=== PATIENT | male | born 1950 | race Caucasian/White ===

== ENCOUNTER 2024-07-27 15:12 | Inpatient (IN) | payer MEDICARE, SELFPAY ==
--- NOTE | ~2024-07-27 | XR_ITS ---
EXAMINATION: XR TOES 2 OR MORE VIEWS RIGHT HISTORY: 2nd toe wound/infection COMPARISON: There are no prior studies available for comparison. FINDINGS: Three views of the right 2nd toe are submitted. There is demineralization of the middle and distal phalanges. There may be a fracture of the proximal phalanx although evaluation is limited by foreshortening. The joint spaces are preserved. There is diffuse soft tissue swelling. XR/XR toe RT min 2V IMPRESSION: Diffuse soft tissue swelling. Focal demineralization of the middle and distal phalanges of the right 2nd toe. Findings are suspicious for osteomyelitis. Possible fracture of the proximal phalanx, although evaluation is limited by foreshortening. Electronically signed by: Manoj Myles MD 07/27/2024 03:58 PM EDT
--- NOTE | ~2024-07-27 | US_ITS ---
CLINICAL HISTORY: foot cellulitis wound Arterial duplex ultrasound right lower extremity Comparison: None Findings: Doubling of flow velocity within the anterior and posterior tibial arteries. Otherwise continuous, pulsatile flow with normal waveforms from common femoral arteries through the posterior tibial and dorsalis pedis arteries. No focal stenosis, aneurysm or occlusion identified. Velocities are within normal range. IMPRESSION: 1. No significant outflow stenosis. 2. 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 This document has been electronically signed by: Sylvia Cruz MD on 07/29/2024 14:31:16
[2024-07-27 15:19] VITALS: BP 160/94; PULSE 118; O2SAT 97
--- NOTE | 2024-07-27 15:32 | ED_ITS ---
HPI - Extremity Problem General Chief complaint: Wound/Laceration Stated complaint: infected injury on toe x2days Time Seen by Provider: 07/27/24 15:16 Source: patient and EMS Mode of arrival: EMS Limitations: no limitations History of Present Illness ED Provider: Catherine Pickering NP HPI Narrative: patient is a 74-year-old male who presents emergency department for evaluation. He reports that 3 days ago he noticed his right 2nd toe to be slightly reddened in perhaps swollen. He had not thought much of this. Denied any precipitating injury. Admits that he did not visualize the toe over the past 3 days as he had not removed his socks. He has not today he would take a shower and upon removing his socks he found there to be a significant wound with bleeding. He denies any pain to this area. Denies history of diabetes or known neuropathy. He consulted with his brother who is a physician in [place] and advised him that he should seek care in the emergency department. Denies any fevers or chills. Has been ambulatory with a steady gait. Related Data Home Medications ?Medication ?Instructions ?Recorded ?Confirmed darunavir 600 mg tablet 600 mg PO BID 07/27/24 07/27/24 etravirine 200 mg tablet 200 mg PO BID 07/27/24 07/27/24 hydrochlorothiazide 12.5 mg tablet 12.5 mg PO DAILY 07/27/24 07/27/24 lisinopril 10 mg tablet 10 mg PO DAILY 07/27/24 07/27/24 raltegravir 400 mg tablet 400 mg PO BID 07/27/24 07/27/24 ([facility]) Allergies Allergy/AdvReac Type Severity Reaction Status Date / Time No Known Allergies Allergy Verified 07/27/24 15:35 Review of Systems 2 Review of Systems: Yes all other systems are reviewed and are negative PMFSH Past Medical History Attestation statement: The following information was validated with the patient. Source: old records reviewed Social History Social History Smoked in Last 30 Days: No Use of substances other than those prescribed or required for medical reasons: No Advance Directives: No Advance Directives Information Provided: Yes Do you have a plan to hurt others: No Plan Physical Exam 2 Vital Signs: Vital Signs: Last Vital Signs Temp 98.9 F 07/27/24 16:51 Pulse 98 07/27/24 16:51 Resp 14 07/27/24 16:51 BP 187/115 H 07/27/24 16:51 Pulse Ox 96 07/27/24 16:51 O2 Del Method Room Air 07/27/24 16:51 BMI result Body Mass Index 27.3 Appearance: Alert.?Oriented to person, place and time. No acute distress.?Normal affect. CVS: Heart sounds normal. Normal heart rate and rhythm.? Pulses normal.?? Respiratory: No respiratory distress.? Lung sounds clear to auscultation bilaterally?? Skin: Skin warm and dry.? Normal skin color.? Extremities: No lower extremity edema.? No calf ttp? 2+ DP/PT pulse. Right 2nd digit / infection as pictured below Neuro: Moves all extremities spontaneously. Sensation intact bilaterally. Ambulates with normal steady gait. Course Reevaluation(s) Reevaluation #1: CBC is without leukocytosis, has a mild normocytic anemia that does not meet transfusion criteria, no thrombocytopenia. Lactic acidosis of 2.6. XR revealing findings consistent with osteomyelitis. Additional coverage with vancomycin has been added. Anticipating admission to hospitalist service. I do note at this time that he has not anion gap hyperglycemia with no reported history of diabetes, suspect undiagnosed controlled diabetes at this time. Time: 16:24 Medications Administered Discontinued Medications Generic Name Dose Route Start Last Admin Trade Name Freq PRN Reason Stop Dose Admin Cefepime HCl 2 gm in 50 mls @ 100 mls/hr 07/27/24 15:38 07/27/24 16:05 Maxipime IV 07/27/24 16:07 100 mls/hr ONCE ONE Administration Sodium Chloride 2,585.49 mls @ 2,585.49 mls/hr 07/27/24 15:41 07/27/24 16:06 Ns 30 ml/kg infuse over 1 hr (2585.49 ml) 07/27/24 16:40 2,585.49 mls/hr IV Administration .Q1H STA Vancomycin HCl 2,000 mg in 500 mls @ 250 mls/hr 07/27/24 16:22 07/27/24 16:49 Vancomycin/Ns IV 07/27/24 18:21 250 mls/hr ONCE ONE Administration Medical Decision Making Medical Decision Making MDM Narrative: patient is a 74-year-old male with past medical history of hypertension, HIV on anti-retroviral therapy reports has not been seen for the past year but typically has detectable viral load with normal CD4 counts presenting for evaluation of right 2nd digit wound/ infection as per HPI. Has not been visualized over the past 2-3 days but today was noted to have significant wound presence as well as foul odor. To his account there was no known precipitating injury. Given the presentation I suspect an infection to the toe and he is tachycardic therefore meeting SIRS criteria, sepsis alert has been called, obtaining blood cultures and lactic acid, he has no hypotension at this point, we will cover with cefepime 2 g IV, obtaining XR to evaluate for osseous abnormality. Differential Diagnosis Differential Diagnoses: The differential diagnosis associated with the presentation includes ( Cellulitis, osteomyelitis, sepsis) Admission/Observation Consideration of admission/observation: Escalation of care including admission/observation considered Consult Healthcare Provider Management of the patient was discussed with: Hospitalist ( Dr. Servin - admitted to medicine service) Lab Data MDM Lab Attestation statement: I reviewed the patient's lab results. 07/27/24 15:58 07/27/24 15:58 Labs: Lab Results 07/27/24 Range/Units 15:58 WBC 8.8 (4.8-10.8) X10*3/uL RBC 4.67 (4.60-5.80) X10*6/uL Hgb 13.9 L (14.0-18.0) g/dl Hct 40.2 L (42.0-52.0) % MCV 86.1 (80.0-98.0) fL MCH 29.8 (27.0-33.0) pg MCHC 34.6 (31.0-36.0) g/dl RDW 12.2 (11.0-16.0) % Plt Count 315 (160-400) X10*3/uL MPV 9.8 (9.4-12.4) fL Immature Gran % (Auto) 0.5 H (0.0-0.4) % Neut % (Auto) 61.2 (45-73) % Lymph % (Auto) 27.2 (20-40) % [place] % (Auto) 9.0 (2-11) % Eos % (Auto) 1.6 (0-4) % Baso % (Auto) 0.5 (0-2) % Lymph # (Auto) 2.4 (1.2-4.9) X10*3/uL [place] # (Auto) 0.8 (0.1-1.2) X10*3/uL Eos # (Auto) 0.1 (0.0-0.4) X10*3/uL Baso # (Auto) 0.0 (0.0-0.2) X10*3/uL Abs Immat Gran (auto) 0.04 H (0.00-0.03) X10*3/uL Absolute Neuts (auto) 5.4 (2.0-8.3) x10*3/uL Absolute Nucleated RBC 0.000 (0.0-0.012) X10*3/uL Nucleated RBC % (auto) 0.0 (0.0-0.2) /100WBC ESR 54 H (0-15) MM/HR Hold Blue Top SEE NOTE Sodium 139 (135-145) mmol/L Potassium 4.0 (3.3-5.1) mmol/L Chloride 104 (96-108) mmol/L Carbon Dioxide 24 (22-29) mmol/L Anion Gap 15 (12-20) BUN 17 H (9-16) mg/dL Creatinine 1.15 (0.5-1.4) mg/dL Estim Creat Clear Calc 56.4 Estimated GFR > 60 Random Glucose 351 H* (60-115) mg/dL Estimat Average Glucose 217 mg/dL Hemoglobin A1c % 9.2 H (<6.0) % Lactic Acid 2.6 H* (0.5-2.0) mmol/L Calcium 9.1 (8.4-10.2) mg/dL Total Bilirubin 0.3 (0.0-1.0) mg/dL AST 21 (5-37) U/L ALT 15 (0-40) U/L Alkaline Phosphatase 75 (39-117) U/L C-Reactive Protein 1.41 H (< or = 0.50) mg/dL Total Protein 7.4 (6.5-8.0) g/dL Albumin 3.6 (3.5-5.0) g/dL Radiology Impression Discussion of test interpretation with radiology: I have reviewed the radiologist's reading. Radiologist Impression: XR/XR toe RT min 2V IMPRESSION: Diffuse soft tissue swelling. Focal demineralization of the middle and distal phalanges of the right 2nd toe. Findings are suspicious for osteomyelitis. Possible fracture of the proximal phalanx, although evaluation is limited by foreshortening. Independent Historian Clinical information obtained from an independent historian. History obtained from or confirmed by: EMS Chronic Conditions Patient?s care impacted by: Other ( see narrative above) Critical Care Time Critical Care Time Critical Care Time: Yes Total Critical Care Time: 35 Attestation: I personally attest to this critical care time spent taking care of the patient exclusive of all other billable procedures was approximately 35 minutes including initial evaluation of patient, ordering tests, x-ray interpretation, sepsis management, medical consultation, documentation, re-evaluation. Discharge Plan Discharge Clinical Impression: Acute osteomyelitis of toe of right foot Patient Disposition: Admitted As Inpatient
[2024-07-27 15:34] VITALS: BP 168/94; PULSE 107; RESP 18; TEMP 36.9; O2SAT 97; BMI 27.3
[2024-07-27 16:05] LABS: MANUAL DIFF FLAG NO
[2024-07-27] MEDS: cefEPime HCl/D5W 2 GM/50 ML PIGGYBACK IV (16:05)
[2024-07-27] MEDS: 0.9 % Sodium Chloride 2,585.49 ML 2585.49 ML IV (16:06)
[2024-07-27 16:10] LABS: Basophils Percent Auto 0.5 % (0-2); Eosinophils Absolute Auto 0.1 X10*3/uL (0.0-0.4); Eosinophils Percent Auto 1.6 % (0-4); Hematocrit 40.2 % (42.0-52.0); Hemoglobin 13.9 g/dl (14.0-18.0); Imm Gran Abs Auto 0.04 X10*3/uL (0.00-0.03); Imm Gran Pct Auto 0.5 % (0.0-0.4); Lymphocytes Absolute Auto 2.4 X10*3/uL (1.2-4.9); Lymphocytes Percent Auto 27.2 % (20-40); Mean Corpuscular HGB Conc 34.6 g/dl (31.0-36.0); Mean Corpuscular Hemoglobin 29.8 pg (27.0-33.0); Mean Corpuscular Volume 86.1 fL (80.0-98.0); Mean Platelet Volume 9.8 fL (9.4-12.4); Monocytes Absolute Auto 0.8 X10*3/uL (0.1-1.2); Neutrophils Absolute Auto 5.4 x10*3/uL (2.0-8.3); Neutrophils Percent Auto 61.2 % (45-73); Platelet Count 315 X10*3/uL (160-400); Red Blood Count 4.67 X10*6/uL (4.60-5.80); Red Cell Distribution Width 12.2 % (11.0-16.0); White Blood Count 8.8 X10*3/uL (4.8-10.8)
[2024-07-27 16:24] LABS: Lactic Acid 2.6 mmol/L (0.5-2.0)
[2024-07-27 16:25] LABS: Alanine Aminotransferase 15 U/L (0-40); Albumin Level 3.6 g/dL (3.5-5.0); Alkaline Phosphatase 75 U/L (39-117); Anion Gap 15 (12-20); Aspartate Amino Transferase 21 U/L (5-37); Bilirubin Total 0.3 mg/dL (0.0-1.0); Blood Urea Nitrogen 17 mg/dL (9-16); C Reactive Protein 1.41 mg/dL (< or = 0.50); Calcium 9.1 mg/dL (8.4-10.2); Carbon Dioxide 24 mmol/L (22-29); Chloride 104 mmol/L (96-108); Creatinine Clr Calc Pharmacy 56.4; Estimated Glomerular Filt Rate > 60; Glucose Random 351 mg/dL (60-115); Sodium 139 mmol/L (135-145); Total Protein 7.4 g/dL (6.5-8.0)
--- NOTE | 2024-07-27 16:47 | PHA.MEDREC ---
Addendum entered by Jose Ortiz [facility] 07/27/24 16:49: med rec reviewed Original Note: Pharmacy Consult ? Medication Reconciliation Pharmacy has completed the medication reconciliation. Spoke to patient and he confirmed all of his medications. Patient had all of his morning medication today.
[2024-07-27] MEDS: vancomycin/NS 2,000 MG/500 ML PLAST..BAG 250 MG IV (16:49)
[2024-07-27 16:51] VITALS: BP 187/115; PULSE 98; RESP 14; TEMP 37.2; O2SAT 96
[2024-07-27 16:55] LABS: Erythrocyte Sedimentation Rate 54 MM/HR (0-15)
[2024-07-27 17:51] LABS: Estimated Average Glucose 217 mg/dL; Hemoglobin A1C 271.8041 umol/L; Hemoglobin A1c % 9.2 % (<6.0); Total Hemoglobin (HGBA1C) 3541.9323 umol/L
--- NOTE | 2024-07-27 18:02 | PHA.PROG ---
Admission Date/Time: July 27, 2024 16:29 Indication: OTHER Weight in k.183 kg Adjusted body weight in Kg: [place] body weight in Kg: Obesity Dosing Indication % IBW: Serum Creatinine - Last 168 Hours 07/27/24 15:58 Creatinine 1.15 Estimated CrCl and GFR - Last 168 Hours 07/27/24 15:58 Estim Creat Clear Calc 56.4 Estimated GFR > 60 Vancomycin Loading Dose: 2000 MG Current Vancomycin Dosing Regimen: 1500 MG Q24H Vancomycin Monitoring using AUC goal of 400 - 600 range with trough as surrogate marker: AZC=834 TROUGH=15.5 Date and Time for next Vancomycin Level to be drawn: 07/29/24@1500 Pharmacist Comments on Vancomycin Plan: Vancomycin dosing will take advantage of [employer] as a clinical decision support tool that uses Bayesian modeling to calculate individual patient's pharmacokinetic parameters and forecast the patient's drug concentration time course with the target goal AUC 24 range of 400 - 600 mg/L/hr.
[2024-07-27 18:03] LABS: Reflex Lactate? Lactic Acid Added
[2024-07-27 18:53] VITALS: BP 187/101
[2024-07-27 18:53] LABS: ~Lactic Acid-LAB USE ONLY 2.2 mmol/L (0.5-2.0)
[2024-07-27] MEDS: Albumin Human 25 % 50 ML 100 ML IV (18:53)
[2024-07-27] MEDS: amLODIPine Besylate 5 MG TABLET PO (18:53)
[2024-07-27 19:31] VITALS: BP 179/104; PULSE 79; RESP 19; TEMP 36.9; O2SAT 95
[2024-07-27] MEDS: Lactated Ringers 1,000 ML 100 ML IVCONT (20:03)
[2024-07-27 20:32] LABS: Reflex Lactate? 2 Y
--- NOTE | 2024-07-27 20:32 | PM.IMHP ---
History of Present Illness Date of Service: 07/27/24 Attending physician on admission: Tanvi Servin Chief Complaint: Right toe infection Pt is a 74-year-old male with a PMH significant for HIV and HTN?who presents to the ED for evaluation of worsening right toe wound. Pt is overall a rather poor and vague historian. Will place a few days ago noticed that the nail on the 2nd digit of his right foot fell off. Pt states he sleeps in his socks and does not often look at his foot. Today pt went to take a shower and noticed the wound in his right foot had worsened significantly, was now swollen, malodorous, and bleeding. Pt denies any pain or feeling in his lower extremities. Denies hx of diabetes. Pt reports he is compliant with his HIV medications. However, pt states he has not seen a PCP in at least 3 or more years. Denies fever, chills. No nausea, vomiting, abdominal pain. Denies chest pain/pressure, palpitations. No SOB or difficulty breathing. In the ED pt was tachycardic up to 107 and hypertensive as high as 187/115. Labs were significant for ESR 54, random glucose 351, A1c 9.1, initial lactic acid 2.6 with repeat 2.2, and CRP 1.41. No leukocytosis. Stable H&H. No significant electrolyte abnormalities. Creatinine WNL at 1.15. X-ray of right toe showed diffuse soft tissue swelling with focal demineralization of right 2nd toe, suspicious for osteomyelitis. Pt was treated in the ED with IVF, vancomycin, and cefepime. Pt is admitted to the hospital for treatment and further evaluation of right 2nd toe osteomyelitis in the setting of new onset diabetes. Review of Systems Review of Systems: Negative except for that which is stated in the [facility] Medical History (Updated 07/27/24 @ 20:43 by HOMAR Winters) HIV (human immunodeficiency virus infection) HTN (hypertension) Social History Smoked in Last 30 Days: No Use of substances other than those prescribed or required for medical reasons: No Advance Directives: No Advance Directives Information Provided: Yes Do you have a plan to hurt others: No Plan Meds Allergies Allergy/AdvReac Type Severity Reaction Status Date / Time No Known Allergies Allergy Verified 07/27/24 15:35 Active Medications: Current Medications Amlodipine Besylate (Amlodipine Besylate 5 Mg Tablet) 5 mg PO DAILY [facility]; Protocol Last Admin: 07/27/24 18:53 Dose: 5 mg Darunavir (Darunavir Ethanolate 600 Mg Tablet) 600 mg PO BID [facility] Dextrose (Dextrose 50 % 25 Gm/50 Ml Syringe) 25 gm IVPUSH Q15M PRN; Protocol PRN Reason: per Hypoglycemia Standing Ord. Glucose (Glucose Gel 15 Gm Gel..Gram.) 15 gm PO Q15M PRN; Protocol PRN Reason: per Hypoglycemia Standing Ord. Cefepime HCl (Maxipime) 2 gm in 50 mls @ 100 mls/hr IV Q12H [facility] Lactated Ringer's (Lr) 1,000 mls @ 100 mls/hr IVCONT .Q10H [facility] Last Admin: 07/27/24 20:03 Dose: 100 mls/hr Vancomycin HCl 1,500 mg/ (Sodium Chloride) 500 mls @ 333.333 mls/hr IV Q24H [facility] Insulin Glargine (Insulin Glargine,Hum.Rec.Anlog 100 Unit/Ml 10 Ml Vial) 10 unit SUBCUT BEDTIME [facility] Insulin Human Lispro (Insulin Lispro 100 Unit/Ml 3 Ml Vial) 0 unit SUBCUT QIDACHS [facility]; Protocol Non-Formulary Medication (Etravirine) 200 mg PO BID [facility] Pharmacy Consult (Consult Rx Vancomycin Dosing) 1 each MISCELLANE DAILY PRN PRN Reason: Consult order Raltegravir (Raltegravir Potassium 400 Mg Tablet) 400 mg PO BID [facility] Home Medications ?Medication ?Instructions ?Recorded ?Confirmed ?Last Taken ?Type darunavir 600 mg tablet 600 mg PO BID 07/27/24 07/27/24 07/27/24 History etravirine 200 mg tablet 200 mg PO BID 07/27/24 07/27/24 07/27/24 History hydrochlorothiazide 12.5 mg tablet 12.5 mg PO DAILY 07/27/24 07/27/24 07/27/24 History lisinopril 10 mg tablet 10 mg PO DAILY 07/27/24 07/27/24 07/27/24 History raltegravir 400 mg tablet 400 mg PO BID 07/27/24 07/27/24 07/27/24 History ([place]) Physical Exam Vital Signs and Narrative: Vital Signs: Last Vital Signs Temp 98.4 F 07/27/24 19:31 Pulse 79 07/27/24 19:31 Resp 19 07/27/24 19:31 BP 179/104 H 07/27/24 19:31 Pulse Ox 95 07/27/24 19:31 O2 Del Method Room Air 07/27/24 19:31 BMI result Body Mass Index 27.3 General: AOx3, no acute distress. Pt unkempt, malodorous. Resp: CTA bilaterally CVS: S1, S2, RRR GI: +BS, NT, no distention Skin: Warm, dry Neuro: Cranial nerves II-XII grossly intact bilaterally. Motor grossly intact bilaterally Extremities: Erythema, swelling of right lower extremity and foot. Right 2nd digit of foot as pictured below. Malodorous Psych: Appropriate affect Results Labs 07/27/24 15:58 07/27/24 15:58 Labs: Laboratory Results - last 24 hr 07/27/24 07/27/24 15:58 18:29 MCV 86.1 MCH 29.8 MCHC 34.6 RDW 12.2 Plt Count 315 MPV 9.8 Immature Gran % (Auto) 0.5 H Neut % (Auto) 61.2 Lymph % (Auto) 27.2 [place] % (Auto) 9.0 Eos % (Auto) 1.6 Baso % (Auto) 0.5 Lymph # (Auto) 2.4 [place] # (Auto) 0.8 Eos # (Auto) 0.1 Baso # (Auto) 0.0 Abs Immat Gran (auto) 0.04 H Absolute Neuts (auto) 5.4 Absolute Nucleated RBC 0.000 Nucleated RBC % (auto) 0.0 ESR 54 H Hold Blue Top SEE NOTE Anion Gap 15 Estim Creat Clear Calc 56.4 Estimated GFR > 60 Random Glucose 351 H* Estimat Average Glucose 217 Hemoglobin A1c % 9.2 H Lactic Acid 2.6 H* Lactic Acid F/U @ 2Hr 2.2 H* Calcium 9.1 Total Bilirubin 0.3 AST 21 ALT 15 Alkaline Phosphatase 75 C-Reactive Protein 1.41 H Total Protein 7.4 Albumin 3.6 Imaging Radiologist's Impressions: Impressions Toe X-Ray 07/27/24 15:35 IMPRESSION: Diffuse soft tissue swelling. Focal demineralization of the middle and distal phalanges of the right 2nd toe. Findings are suspicious for osteomyelitis. Possible fracture of the proximal phalanx, although evaluation is limited by foreshortening. Electronically signed by: Manoj Myles MD 07/27/2024 03:58 PM EDT RP Assessment and Plan (1) Acute osteomyelitis of toe of right foot: Status: Acute Plan Pt is a 74-year-old male with a PMH significant for HIV and HTN?who presents to the ED for evaluation of worsening right toe wound. Pt is overall a rather poor and vague historian. Pt is admitted to the hospital for treatment and further evaluation of right 2nd toe osteomyelitis in the setting of new onset diabetes. Acute osteomyelitis of 2nd digit on right foot In the setting of undiagnosed/new onset diabetes Pt with worsening right foot for the past 3-4 days X-ray of right foot suggestive of osteomyelitis No sepsis: Tachycardia, but no tachypnea, fever, or leukocytosis Pt given IVF and started on broad spectrum abx in the ED Will treat with vancomycin and cefepime, started 07/27/2024 General surgery consult New onset type 2 diabetes Initial random glucose 351, A1c 9.[address] on sliding scale insulin Start on Lantus 10 at night Diabetic diet, diabetic counseling Acute lactic acidosis Initial lactic acid 2.6 with repeat 2.2 Not secondary to sepsis Pt given IVF in the ED and started on broad-spectrum antibiotics Treat as above HTN Hold lisinopril and hydrochlorothiazide for now Will start on amlodipine 5 mg daily Follow up BP HIV Continue home meds Check CD4 levels as pt has not followed with PCP in some years Full Code, verified with pt Attending:?Dr. Servin DVT Prophylaxis: Lovenox Pt will require a hospitalization of at least two nights for treatment of?acute right 2nd toe osteomyelitis in the setting of new onset diabetes that will require IV antibiotics and specialist consultation with General surgery. Quality Stroke Does the patient have a stroke diagnosis?: No VTE Prior VTE?: No VTE Risk Level:: Medical - moderate - high VTE Device Contraindication: Treatment Not Indicated VTE Drug Contraindication: N/A - Med Ordered
[2024-07-27 20:39] LABS: Cancel Lactic Acid Canceled
[2024-07-27 22:21] VITALS: BP 181/107; PULSE 75; RESP 21; TEMP 37.1; O2SAT 95
[2024-07-27 22:42] LABS: Glucose, Whole Blood 125 mg/dL (60-115)
[2024-07-27] MEDS: DARUNAVIR ETHANOLATE 600 MG PO (22:56)
[2024-07-27] MEDS: Raltegravir Potassium 400 MG TABLET PO (22:56)
[2024-07-27] MEDS: Insulin Glargine,Hum.rec.anlog 100 UNIT/ML 10 ML VIAL 10 UNIT SUBCUT (23:03)
[2024-07-27] MEDS: Enoxaparin Sodium 40 MG/0.4 ML SYRINGE SUBCUT (23:09)
--- NOTE | 2024-07-27 23:10 | PC.NURSE ---
Took over are from Janak Gomez at 19:00, pt medicated per mar. awaiting transport to room.
[2024-07-28] VITALS (9 sets, daily range): BP systolic 151–180; BP diastolic 78–92; PULSE 73–89; RESP 16–18; TEMP 36.4–37.2; O2SAT 93–98
[2024-07-28] MEDS: cefEPime HCl/D5W 2 GM/50 ML PIGGYBACK IV ×2 (05:11→17:43)
[2024-07-28] MEDS: Lactated Ringers 1,000 ML 100 ML IVCONT ×2 (05:11→12:51)
[2024-07-28 07:30] LABS: Anion Gap 13 (12-20); Blood Urea Nitrogen 10 mg/dL (9-16); Calcium 8.8 mg/dL (8.4-10.2); Carbon Dioxide 25 mmol/L (22-29); Chloride 104 mmol/L (96-108); Creatinine Clr Calc Pharmacy 80.1; Estimated Glomerular Filt Rate > 60; Glucose Random 150 mg/dL (60-115); Potassium 3.6 mmol/L (3.3-5.1); Sodium 138 mmol/L (135-145)
[2024-07-28 07:34] LABS: Glucose, Whole Blood 173 mg/dL (60-115)
[2024-07-28] MEDS: Insulin Lispro 100 UNIT/ML 3 ML VIAL SUBCUT ×3 (08:53→20:50)
[2024-07-28] MEDS: DARUNAVIR ETHANOLATE 600 MG PO ×2 (08:53→20:50)
[2024-07-28] MEDS: amLODIPine Besylate 5 MG TABLET PO (08:53)
[2024-07-28] MEDS: Raltegravir Potassium 400 MG TABLET PO ×2 (08:54→20:49)
[2024-07-28] MEDS: 0.9 % Sodium Chloride Flush 3 ML SYRINGE IVFLUSH ×2 (08:54→17:43)
[2024-07-28] MEDS: glipiZIDE 5 MG TABLET 2.5 MG PO ×2 (09:26→17:42)
--- NOTE | 2024-07-28 10:15 | MHC.CM.PN ---
IMM 07/28/24, Pt lives alone, he does not have home health services, he said that his PCP is Kendra Cevallos, but he has not seen her in 3 years, so may not still be active, brochure given if he needs new PCP. He does not use DME. HCP form completed here and added to chart, naming his brother. Pt will need assistance with transport home at [place], DCP: home, self care, CM to follow for DC needs.
--- NOTE | 2024-07-28 10:34 | P.CONGS_ITS ---
History of Present Illness Consult details Consult date: 07/28/24 Narrative: 74-year-old male referred for right 2nd toe wound with cellulitis. He says he has noticed this wound for about a week but this seemed to have worsened yesterday with bleeding, drainage and swelling. He is not a very good historian. He says that he was unaware that he had diabetes He denies any fever or chills. His imaging studies suggest osteomyelitis of the 2nd toe. He says he does not really have good sensation on this toe. He denies pain on the area. Review of Systems 2 Constitutional: Constitutional: Denies chills and Denies fever(s) Cardiovascular: Cardiovascular: Denies chest pain, Denies dyspnea and Denies dyspnea on exertion Respiratory: Respiratory: Denies cough, Denies dyspnea and Denies dyspnea on exertion Gastrointestinal: Gastrointestinal: Denies hematochezia and Denies change in bowel habits Genitourinary: Genitourinary: Denies hematuria and Denies difficulty urinating Musculoskeletal: Musculoskeletal: Denies back pain and Denies limited range of motion Neurologic: Denies focal weakness and Denies convulsions Psychiatric: Psychiatric: Denies depression and Denies mood swings [facility] Past Medical History Medical History (Updated 07/27/24 @ 20:43 by HOMAR Winters) HIV (human immunodeficiency virus infection) HTN (hypertension) Social History Social History Household Members: None Housing: Apartment Do you presently have visiting nurse or other home services: No Patient Tobacco Use Status: Never used Tobacco Smoked in Last 30 Days: No Use of substances other than those prescribed or required for medical reasons: No Currently Displaying Signs/Symptoms of Drug Intoxication Withdrawal: No Have you been hit, kicked, punched, or otherwise hurt by someone within the past year? If so, by whom?: No Are you made to feel afraid or neglected: No Advance Directives: No Advance Directives Information Provided: Yes Do you have a plan to hurt others: No Plan Recently lost weight without trying: No How much weight loss: Not applicable Eating poorly because of decreased appetite: No Nutrition screen score: 0 Nutrition Risks: No Nutritional Risk service: No Meds Allergies Allergy/AdvReac Type Severity Reaction Status Date / Time No Known Allergies Allergy Verified 07/27/24 15:35 Active Medications: Current Medications Acetaminophen (Acetaminophen 325 Mg Tablet) 650 mg PO Q6H PRN PRN Reason: Pain, Mild 1-3,fever,headache Amlodipine Besylate (Amlodipine Besylate 5 Mg Tablet) 5 mg PO DAILY [facility]; Protocol Last Admin: 07/28/24 08:53 Dose: 5 mg Calcium Carbonate (Calcium Carbonate 750 Mg Tab.Chew) 750 mg PO Q4H PRN PRN Reason: Heartburn Darunavir (Darunavir Ethanolate 600 Mg Tablet) 600 mg PO BID [facility] Last Admin: 07/28/24 08:53 Dose: 600 mg Dextrose (Dextrose 50 % 25 Gm/50 Ml Syringe) 25 gm IVPUSH Q15M PRN; Protocol PRN Reason: per Hypoglycemia Standing Ord. Enoxaparin Sodium (Enoxaparin Sodium 40 Mg/0.4 Ml Syringe) 40 mg SUBCUT Q24H [facility] Last Admin: 07/27/24 23:09 Dose: 40 mg Glipizide (Glipizide 5 Mg Tablet) 2.5 mg PO BIDWM [facility] Last Admin: 07/28/24 09:26 Dose: 2.5 mg Glucose (Glucose Gel 15 Gm Gel..Gram.) 15 gm PO Q15M PRN; Protocol PRN Reason: per Hypoglycemia Standing Ord. Cefepime HCl (Maxipime) 2 gm in 50 mls @ 100 mls/hr IV Q12H [facility] Last Infusion: 07/28/24 06:25 Dose: Infused Lactated Ringer's (Lr) 1,000 mls @ 100 mls/hr IVCONT .Q10H [facility] Last Admin: 07/28/24 05:11 Dose: 100 mls/hr Vancomycin HCl 1,500 mg/ (Sodium Chloride) 500 mls @ 333.333 mls/hr IV Q24H [facility] Insulin Glargine (Insulin Glargine,Hum.Rec.Anlog 100 Unit/Ml 10 Ml Vial) 10 unit SUBCUT BEDTIME [facility] Last Admin: 07/27/24 23:03 Dose: 10 unit Insulin Human Lispro (Insulin Lispro 100 Unit/Ml 3 Ml Vial) 0 unit SUBCUT QIDACHS [facility]; Protocol Last Admin: 07/28/24 08:53 Dose: 2 unit Magnesium Hydroxide (Milk Of Magnesia 30 Ml Oral.Susp) 30 ml PO DAILY PRN PRN Reason: Constipation Melatonin (Melatonin 3 Mg Tablet) 6 mg PO BEDTIME PRN PRN Reason: Insomnia Non-Formulary Medication (Etravirine) 200 mg PO BID [facility] Pharmacy Consult (Consult Rx Vancomycin Dosing) 1 each MISCELLANE DAILY PRN PRN Reason: Consult order Raltegravir (Raltegravir Potassium 400 Mg Tablet) 400 mg PO BID [facility] [place] Last Admin: 07/28/24 08:54 Dose: 400 mg Sodium Chloride (0.9 % Sodium Chloride Flush 3 Ml Syringe) 3 ml IVFLUSH QSHIFT [facility] Last Admin: 07/28/24 08:54 Dose: 3 ml Home Medications ?Medication ?Instructions ?Recorded ?Confirmed ?Last Taken ?Type darunavir 600 mg tablet 600 mg PO BID 07/27/24 07/27/24 07/27/24 History etravirine 200 mg tablet 200 mg PO BID 07/27/24 07/27/24 07/27/24 History hydrochlorothiazide 12.5 mg tablet 12.5 mg PO DAILY 07/27/24 07/27/24 07/27/24 History lisinopril 10 mg tablet 10 mg PO DAILY 07/27/24 07/27/24 07/27/24 History raltegravir 400 mg tablet 400 mg PO BID 07/27/24 07/27/24 07/27/24 History ([place]) Physical Exam 2 Vital Signs: Vital Signs: Last Vital Signs Temp 98.6 F 07/28/24 08:00 Pulse 77 07/28/24 08:00 Resp 17 07/28/24 08:00 BP 151/80 H 07/28/24 08:53 Pulse Ox 95 07/28/24 08:00 O2 Del Method Room Air 07/28/24 08:00 BMI result Body Mass Index 27.3 Const: General: comfortable and no acute distress O rientation/consciousness: patient oriented x3 Neck: Neck: Yes no lymphadenopathy Resp: Auscultation: clear to auscultation bilaterally Cardio: Rhythm: regular rhythm GI: Palpation (GI): Soft to palpation, nontender and no guarding Neuro: General: patient oriented x3 Extrem: Other: Second toe with ulcer on the dorsal aspect about 2 x 3 cm, with thick fibrinous exudates and superficial skin necrosis, cellulitic changes More superficial ulceration on the 1st toe Results Labs 07/27/24 15:58 07/28/24 06:57 Labs: Abnormal lab results 07/27/24 07/27/24 07/27/24 Range/Units 15:58 18:29 22:36 Hgb 13.9 L (14.0-18.0) g/dl Hct 40.2 L (42.0-52.0) % Immature Gran % (Auto) 0.5 H (0.0-0.4) % Abs Immat Gran (auto) 0.04 H (0.00-0.03) X10*3/uL ESR 54 H (0-15) MM/HR BUN 17 H (9-16) mg/dL POC Glucose 125 H (60-115) mg/dL Random Glucose 351 H* (60-115) mg/dL Hemoglobin A1c % 9.2 H (<6.0) % Lactic Acid 2.6 H* (0.5-2.0) mmol/L Lactic Acid F/U @ 2Hr 2.2 H* (0.5-2.0) mmol/L C-Reactive Protein 1.41 H (< or = 0.50) mg/dL 07/28/24 07/28/24 Range/Units 06:57 07:08 Hgb (14.0-18.0) g/dl Hct (42.0-52.0) % Immature Gran % (Auto) (0.0-0.4) % Abs Immat Gran (auto) (0.00-0.03) X10*3/uL ESR (0-15) MM/HR BUN (9-16) mg/dL POC Glucose 173 H (60-115) mg/dL Random Glucose 150 H (60-115) mg/dL Hemoglobin A1c % (<6.0) % Lactic Acid (0.5-2.0) mmol/L Lactic Acid F/U @ 2Hr (0.5-2.0) mmol/L C-Reactive Protein (< or = 0.50) mg/dL Short CBC 07/27/24 Range/Units 15:58 WBC 8.8 (4.8-10.8) X10*3/uL Hgb 13.9 L (14.0-18.0) g/dl Hct 40.2 L (42.0-52.0) % Plt Count 315 (160-400) X10*3/uL BMP 07/27/24 07/28/24 15:58 06:57 Sodium 139 138 Potassium 4.0 3.6 Chloride 104 104 Carbon Dioxide 24 25 BUN 17 H 10 Creatinine 1.15 0.81 Calcium 9.1 8.8 Liver Function 07/27/24 Range/Units 15:58 Total Bilirubin 0.3 (0.0-1.0) mg/dL AST 21 (5-37) U/L ALT 15 (0-40) U/L Alkaline Phosphatase 75 (39-117) U/L Albumin 3.6 (3.5-5.0) g/dL All other labs normal. Assessment and Plan (1) Acute osteomyelitis of toe of right foot: Status: Acute He has this ulcer on the 2nd toe on the dorsal aspect as described above. He does have some drainage and swelling. His x-ray suggest osteomyelitis of the distal and middle phalanges. I have bluntly debrided the area of the 1st and 2nd toes because of the presence of eschar and fibrinous debris. I have applied dry dressings and wrapped the foot with Chen roll I explained to him option of IV antibiotic treatment versus amputation. He says that he would like to try antibiotic treatment at this time He has also been treated for new onset diabetes. I agree with IV antibiotics for now with good wound care. I will follow along while he is in the hospital Procedures Date of Service Date of Service: 07/28/24
[2024-07-28 11:15] LABS: Glucose, Whole Blood 256 mg/dL (60-115)
[2024-07-28 16:06] LABS: Glucose, Whole Blood 112 mg/dL (60-115)
--- NOTE | 2024-07-28 16:34 | P.PNIM_ITS ---
Subjective Subjective Date of Service: 07/28/24 Interval History: foot cellulitis , uncontrolled htn Review of Systems foot erythema /wound seems similar Review of Systems: Yes all other systems are reviewed and are negative Physical Exam 2 Vital Signs: Vital Signs: Last Vital Signs Temp 98.7 F 07/28/24 16:00 Pulse 85 07/28/24 16:00 Resp 17 07/28/24 16:00 BP 175/85 H 07/28/24 16:00 Pulse Ox 93 07/28/24 16:00 O2 Del Method Room Air 07/28/24 16:00 BMI result Body Mass Index 27.3 General: AOx3, no acute distress. Pt unkempt, malodorous. Resp: CTA bilaterally CVS: S1, S2, RRR GI: +BS, NT, no distention Skin: Warm, dry Neuro: non focal Extremities: Erythema, swelling of right lower extremity and foot. Right 2nd digit of foot as pictured below. Malodorous Objective Data Active Medications Acetaminophen (Acetaminophen 325 Mg Tablet) 650 mg PO Q6H PRN PRN Reason: Pain, Mild 1-3,fever,headache Amlodipine Besylate (Amlodipine Besylate 5 Mg Tablet) 5 mg PO DAILY [facility]; Protocol Last Admin: 07/28/24 08:53 Dose: 5 mg Documented By: SUSANNAH Calcium Carbonate (Calcium Carbonate 750 Mg Tab.Chew) 750 mg PO Q4H PRN PRN Reason: Heartburn Darunavir (Darunavir Ethanolate 600 Mg Tablet) 600 mg PO BID [facility] Last Admin: 07/28/24 08:53 Dose: 600 mg Documented By: SUSANNAH Dextrose (Dextrose 50 % 25 Gm/50 Ml Syringe) 25 gm IVPUSH Q15M PRN; Protocol PRN Reason: per Hypoglycemia Standing Ord. Enoxaparin Sodium (Enoxaparin Sodium 40 Mg/0.4 Ml Syringe) 40 mg SUBCUT Q24H [facility] Last Admin: 07/27/24 23:09 Dose: 40 mg Documented By: JENNIFER Glipizide (Glipizide 5 Mg Tablet) 2.5 mg PO BIDWM [facility] Last Admin: 07/28/24 09:26 Dose: 2.5 mg Documented By: SUSANNAH Glucose (Glucose Gel 15 Gm Gel..Gram.) 15 gm PO Q15M PRN; Protocol PRN Reason: per Hypoglycemia Standing Ord. Cefepime HCl (Maxipime) 2 gm in 50 mls @ 100 mls/hr IV Q12H [facility] Last Infusion: 07/28/24 06:25 Dose: Infused Documented By: BIENVENIDO Lactated Ringer's (Lr) 1,000 mls @ 100 mls/hr IVCONT .Q10H [facility] Last Admin: 07/28/24 12:51 Dose: 100 mls/hr Documented By: SUSANNAH Vancomycin HCl 1,500 mg/ (Sodium Chloride) 500 mls @ 333.333 mls/hr IV Q24H [facility] Insulin Glargine (Insulin Glargine,Hum.Rec.Anlog 100 Unit/Ml 10 Ml Vial) 10 unit SUBCUT BEDTIME [facility] Last Admin: 07/27/24 23:03 Dose: 10 unit Documented By: JENNIFER Insulin Human Lispro (Insulin Lispro 100 Unit/Ml 3 Ml Vial) 0 unit SUBCUT QIDACHS [facility]; Protocol Last Admin: 07/28/24 12:52 Dose: 6 unit Documented By: SUSANNAH Magnesium Hydroxide (Milk Of Magnesia 30 Ml Oral.Susp) 30 ml PO DAILY PRN PRN Reason: Constipation Melatonin (Melatonin 3 Mg Tablet) 6 mg PO BEDTIME PRN PRN Reason: Insomnia Non-Formulary Medication (Etravirine) 200 mg PO BID [facility] Pharmacy Consult (Consult Rx Vancomycin Dosing) 1 each MISCELLANE DAILY PRN PRN Reason: Consult order Raltegravir (Raltegravir Potassium 400 Mg Tablet) 400 mg PO BID [facility] Last Admin: 07/28/24 08:54 Dose: 400 mg Documented By: SUSANNAH Sodium Chloride (0.9 % Sodium Chloride Flush 3 Ml Syringe) 3 ml IVFLUSH QSHIFT [facility] Last Admin: 07/28/24 08:54 Dose: 3 ml Documented By: SUSANNAH Labs 07/27/24 15:58 07/28/24 06:57 Labs: Laboratory Results - last 24 hr 07/27/24 07/27/24 07/27/24 15:58 18:29 22:36 ESR 54 H Hold Purple Top Anion Gap Estim Creat Clear Calc Estimated GFR POC Glucose 125 H Random Glucose Estimat Average Glucose 217 Hemoglobin A1c % 9.2 H Lactic Acid F/U @ 2Hr 2.2 H* Calcium 07/28/24 07/28/24 07/28/24 06:57 07:08 11:06 ESR Hold Purple Top SEE NOTE Anion Gap 13 Estim Creat Clear Calc 80.1 Estimated GFR > 60 POC Glucose 173 H 256 H Random Glucose 150 H Estimat Average Glucose Hemoglobin A1c % Lactic Acid F/U @ 2Hr Calcium 8.8 07/28/24 15:37 ESR Hold Purple Top Anion Gap Estim Creat Clear Calc Estimated GFR POC Glucose 112 Random Glucose Estimat Average Glucose Hemoglobin A1c % Lactic Acid F/U @ 2Hr Calcium Assessment and Plan (1) Acute osteomyelitis of toe of right foot: Status: Acute Assessment and Plan: 74-year-old male with a PMH significant for HIV and HTN?who presents to the ED for evaluation of worsening right toe wound. Pt is overall a rather poor and vague historian. Pt is admitted to the hospital for treatment and further evaluation of right 2nd toe osteomyelitis in the setting of new onset diabetes. Acute osteomyelitis of 2nd digit on right foot In the setting of undiagnosed/new onset diabetes Pt with worsening right foot for the past 3-4 days X-ray of right foot suggestive of osteomyelitis No sepsis: Tachycardia, but no tachypnea, fever, or leukocytosis will check right Le Doppler continue vancomycin and cefepime, started 07/27/2024 General surgery consult New onset type 2 diabetes Initial random glucose 351, A1c 9.2 started on glipizide fs with coverage Diabetic diet, diabetic counseling Acute lactic acidosis Initial lactic acid 2.6 with repeat 2.2 Not secondary to sepsis Pt given IVF in the ED and started on broad-spectrum antibiotics Treat as above HTN uncontrolled Hold lisinopril Will start on amlodipine 5 mg daily ,added hydrochlorothiazide. Follow up BP HIV Continue home meds Check CD4 levels as pt has not followed with PCP in some years Full Code, verified with pt DVT Prophylaxis: Lovenox ongoing need: hospitalization of at least two nights for treatment of?acute right 2nd toe osteomyelitis in the setting of new onset diabetes that will require IV antibiotics and specialist consultation with General surgery. Quality Stroke Does the patient have a stroke diagnosis?: No VTE Prior VTE?: No VTE Risk Level:: Medical - moderate - high VTE Device Contraindication: Treatment Not Indicated VTE Drug Contraindication: N/A - Med Ordered
[2024-07-28] MEDS: hydroCHLOROthiazide 12.5 MG TABLET PO (17:42)
[2024-07-28] MEDS: vancomycin HCL 1,500 MG in 0.9 % Sodium Chloride 500 ML 333.33 MG IV (17:43)
[2024-07-28 20:36] LABS: Glucose, Whole Blood 152 mg/dL (60-115)
[2024-07-28] MEDS: Enoxaparin Sodium 40 MG/0.4 ML SYRINGE SUBCUT (20:50)
--- NOTE | 2024-07-28 22:30 | PC.NURSE ---
Addendum entered by Jaqueline Jeffries RN 07/29/24 06:20: LS clear, RR even & non-labored, with no apparent distress. BSx4, non-tender, large and round, Denies SOB/CP/N/V, no pain reported. Dsg to Left foot CDI, positive pulses to BLE, sensation intact. VSS, Call clements within reach. Original Note: This RN received report via telephone from ANNY Alexandra on C, pt in transport at this time.
--- NOTE | 2024-07-28 22:30 | PC.NURSE ---
Addendum entered by Jaqueline Jeffries RN 07/29/24 06:14: LS diminished but clear, RR even & non-labored, with no apparent distress. BSx4, non-tender, large and round, Denies SOB/CP/N/V, no pain reported. Dsg to Left foot CDI, positive pulses to BLE, sensation intact. VSS, Call clements within reach. Original Note: This RN received report at [id number], from ANNY Alexandar from [employer], pt being transported to floor at this time.
[2024-07-29] VITALS (8 sets, daily range): BP systolic 127–160; BP diastolic 67–88; PULSE 75–98; RESP 16–18; TEMP 36.3–37.2; O2SAT 93–96
[2024-07-29] MEDS: cefEPime HCl/D5W 2 GM/50 ML PIGGYBACK IV ×2 (03:32→15:28)
[2024-07-29] MEDS: Lactated Ringers 1,000 ML 100 ML IVCONT (05:45)
[2024-07-29 06:26] LABS: Estimated Glomerular Filt Rate > 60
[2024-07-29 07:16] LABS: Glucose, Whole Blood 140 mg/dL (60-115)
--- NOTE | 2024-07-29 07:39 | P.PNIM_ITS ---
Subjective Subjective Date of Service: 07/29/24 Interval History: possible osetomyelitis Review of Systems denies foot pain has mild erythema foot seems similar Review of Systems: Yes all other systems are reviewed and are negative Physical Exam 2 Vital Signs: Vital Signs: Last Vital Signs Temp 99.0 F 07/29/24 07:10 Pulse 75 07/29/24 07:10 Resp 18 07/29/24 07:10 BP 143/77 H 07/29/24 07:10 Pulse Ox 95 07/29/24 07:10 O2 Del Method Room Air 07/29/24 07:10 BMI result Body Mass Index 27.3 General: AOx3, no acute distress. Pt unkempt, malodorous. Resp: CTA bilaterally CVS: S1, S2, RRR GI: +BS, NT, no distention Skin: Warm, dry Neuro: non focal Extremities: Erythema, swelling of right lower extremity and foot. Right 2nd digit of foot as pictured below. Objective Data Active Medications Acetaminophen (Acetaminophen 325 Mg Tablet) 650 mg PO Q6H PRN PRN Reason: Pain, Mild 1-3,fever,headache Amlodipine Besylate (Amlodipine Besylate 5 Mg Tablet) 5 mg PO DAILY [facility]; Protocol Calcium Carbonate (Calcium Carbonate 750 Mg Tab.Chew) 750 mg PO Q4H PRN PRN Reason: Heartburn Darunavir (Darunavir Ethanolate 600 Mg Tablet) 600 mg PO BID [facility] Last Admin: 07/28/24 20:50 Dose: 600 mg Documented By: AYANNA Dextrose (Dextrose 50 % 25 Gm/50 Ml Syringe) 25 gm IVPUSH Q15M PRN; Protocol PRN Reason: per Hypoglycemia Standing Ord. Enoxaparin Sodium (Enoxaparin Sodium 40 Mg/0.4 Ml Syringe) 40 mg SUBCUT Q24H [facility] Last Admin: 07/28/24 20:50 Dose: 40 mg Documented By: AYANNA Glipizide (Glipizide 5 Mg Tablet) 2.5 mg PO BIDWM [facility] Last Admin: 07/28/24 17:42 Dose: 2.5 mg Documented By: SUSANNAH Glucose (Glucose Gel 15 Gm Gel..Gram.) 15 gm PO Q15M PRN; Protocol PRN Reason: per Hypoglycemia Standing Ord. Hydrochlorothiazide (Hydrochlorothiazide 12.5 Mg Tablet) 12.5 mg PO DAILY [facility]; Protocol Last Admin: 07/28/24 17:42 Dose: 12.5 mg Documented By: SUSANNAH Cefepime HCl (Maxipime) 2 gm in 50 mls @ 100 mls/hr IV Q12H [facility] Last Infusion: 07/29/24 04:02 Dose: Infused Documented By: KATHRINE Lactated Ringer's (Lr) 1,000 mls @ 100 mls/hr IVCONT .Q10H [facility] Last Admin: 07/29/24 05:45 Dose: 100 mls/hr Documented By: KATHRINE Vancomycin HCl 1,500 mg/ (Sodium Chloride) 500 mls @ 333.333 mls/hr IV Q24H [facility] Last Infusion: 07/29/24 00:27 Dose: Infused Documented By: KATHRINE Insulin Human Lispro (Insulin Lispro 100 Unit/Ml 3 Ml Vial) 0 unit SUBCUT QIDACHS [facility]; Protocol Last Admin: 07/29/24 07:23 Dose: Not Given Documented By: RAMYA Non-Admin Reason: No Insulin Coverage Magnesium Hydroxide (Milk Of Magnesia 30 Ml Oral.Susp) 30 ml PO DAILY PRN PRN Reason: Constipation Melatonin (Melatonin 3 Mg Tablet) 6 mg PO BEDTIME PRN PRN Reason: Insomnia Non-Formulary Medication (Etravirine) 200 mg PO BID [facility] Pharmacy Consult (Consult Rx Vancomycin Dosing) 1 each MISCELLANE DAILY PRN PRN Reason: Consult order Raltegravir (Raltegravir Potassium 400 Mg Tablet) 400 mg PO BID [facility] Last Admin: 07/28/24 20:49 Dose: 400 mg Documented By: AYANNA Sodium Chloride (0.9 % Sodium Chloride Flush 3 Ml Syringe) 3 ml IVFLUSH QSHIFT [facility] Last Admin: 07/28/24 23:00 Dose: Not Given Documented By: KATHRINE Non-Admin Reason: IV Running Labs 07/27/24 15:58 07/29/24 05:40 Labs: Laboratory Results - last 24 hr 07/28/24 07/28/24 07/28/24 11:06 15:37 20:32 Hold Purple Top Estim Creat Clear Calc Estimated GFR POC Glucose 256 H 112 152 H 07/29/24 07/29/24 05:40 07:09 Hold Purple Top SEE NOTE Estim Creat Clear Calc 69.0 Estimated GFR > 60 POC Glucose 140 H Microbiology Microbiology Results: Microbiology 07/27/24 15:58 Blood Culture - Preliminary Blood - Venous No growth after 24 hours. 07/27/24 15:58 Blood Culture - Preliminary Blood - Venous No growth after 24 hours. Assessment and Plan (1) Acute osteomyelitis of toe of right foot: Status: Acute Assessment and Plan: 74-year-old male with a PMH significant for HIV and HTN?who presents to the ED for evaluation of worsening right toe wound. Pt is overall a rather poor and vague historian. Pt is admitted to the hospital for treatment and further evaluation of right 2nd toe osteomyelitis in the setting of new onset diabetes. Acute osteomyelitis of 2nd digit on right foot In the setting of undiagnosed/new onset diabetes Pt with worsening right foot for the past 3-4 days X-ray of right foot suggestive of osteomyelitis No sepsis: Tachycardia, but no tachypnea, fever, or leukocytosis will check right Le Doppler continue vancomycin and cefepime, started 07/27/2024 General surgery consult noted-s/p bluntly debrided this and cleaned the area with normal saline. Dry dressings daily for the foot and wrapped with Chen roll to keep clean New onset type 2 diabetes Initial random glucose 351, A1c 9.2 patient prefers po meds -started glipizide , fs improving fs with coverage Diabetic diet, diabetic counseling Acute lactic acidosis Initial lactic acid 2.6 with repeat 2.2 with hydration Not secondary to sepsis no need to trend further lactic acid . HTN uncontrolled Will start on amlodipine 5 mg daily ,hydrochlorothiazide,added lisinopril 5 mg qd Follow up BP HIV Continue home meds Check CD4 levels as pt has not followed with PCP in some years Full Code, verified with pt DVT Prophylaxis: Lovenox ongoing need: hospitalization of at least two nights for treatment of?acute right 2nd toe osteomyelitis in the setting of new onset diabetes that will require IV antibiotics and specialist consultation with General surgery. Quality Stroke Does the patient have a stroke diagnosis?: No VTE Prior VTE?: No VTE Risk Level:: Medical - moderate - high VTE Device Contraindication: Treatment Not Indicated VTE Drug Contraindication: N/A - Med Ordered
[2024-07-29] MEDS: Raltegravir Potassium 400 MG TABLET PO ×2 (09:12→20:51)
[2024-07-29] MEDS: amLODIPine Besylate 5 MG TABLET PO (09:12)
[2024-07-29] MEDS: DARUNAVIR ETHANOLATE 600 MG PO ×2 (09:12→20:51)
[2024-07-29] MEDS: glipiZIDE 5 MG TABLET 2.5 MG PO ×2 (09:13→17:09)
[2024-07-29] MEDS: hydroCHLOROthiazide 12.5 MG TABLET PO (09:13)
[2024-07-29] MEDS: 0.9 % Sodium Chloride Flush 3 ML SYRINGE IVFLUSH ×3 (09:16→20:59)
--- NOTE | 2024-07-29 09:27 | P.PNGS_ITS ---
Subjective Subjective Date of Service: 07/29/24 Interval history: No new complaints No fever Denies significant pain Physical Exam 2 Vital Signs: Vital Signs: Last Vital Signs Temp 99.0 F 07/29/24 07:10 Pulse 98 07/29/24 09:09 Resp 18 07/29/24 07:10 BP 160/83 H 07/29/24 09:09 Pulse Ox 95 07/29/24 07:10 O2 Del Method Room Air 07/29/24 07:10 BMI result Body Mass Index 27.3 Const: General: comfortable and no acute distress Resp: Effort & Inspection: normal respiratory effort Cardio: Rate: regular rate Extrem: Other: Ulcer on 2nd toe on the dorsal aspect, with some edema Objective Data Active Medications Acetaminophen (Acetaminophen 325 Mg Tablet) 650 mg PO Q6H PRN PRN Reason: Pain, Mild 1-3,fever,headache Amlodipine Besylate (Amlodipine Besylate 5 Mg Tablet) 5 mg PO DAILY [facility]; Protocol Last Admin: 07/29/24 09:12 Dose: 5 mg Documented By: KALEN Calcium Carbonate (Calcium Carbonate 750 Mg Tab.Chew) 750 mg PO Q4H PRN PRN Reason: Heartburn Darunavir (Darunavir Ethanolate 600 Mg Tablet) 600 mg PO BID [facility] Last Admin: 07/29/24 09:12 Dose: 600 mg Documented By: KALEN Dextrose (Dextrose 50 % 25 Gm/50 Ml Syringe) 25 gm IVPUSH Q15M PRN; Protocol PRN Reason: per Hypoglycemia Standing Ord. Enoxaparin Sodium (Enoxaparin Sodium 40 Mg/0.4 Ml Syringe) 40 mg SUBCUT Q24H [facility] Last Admin: 07/28/24 20:50 Dose: 40 mg Documented By: AYANNA Glipizide (Glipizide 5 Mg Tablet) 2.5 mg PO BIDWM [facility] Last Admin: 07/29/24 09:13 Dose: 2.5 mg Documented By: KALEN Glucose (Glucose Gel 15 Gm Gel..Gram.) 15 gm PO Q15M PRN; Protocol PRN Reason: per Hypoglycemia Standing Ord. Hydrochlorothiazide (Hydrochlorothiazide 12.5 Mg Tablet) 12.5 mg PO DAILY [facility]; Protocol Last Admin: 07/29/24 09:13 Dose: 12.5 mg Documented By: KALEN Cefepime HCl (Maxipime) 2 gm in 50 mls @ 100 mls/hr IV Q12H [facility] Last Infusion: 07/29/24 04:02 Dose: Infused Documented By: KATHRINE Vancomycin HCl 1,500 mg/ (Sodium Chloride) 500 mls @ 333.333 mls/hr IV Q24H [facility] Last Infusion: 07/29/24 00:27 Dose: Infused Documented By: KATHRINE Insulin Human Lispro (Insulin Lispro 100 Unit/Ml 3 Ml Vial) 0 unit SUBCUT QIDACHS [facility]; Protocol Last Admin: 07/29/24 07:23 Dose: Not Given Documented By: RAMYA Non-Admin Reason: No Insulin Coverage Magnesium Hydroxide (Milk Of Magnesia 30 Ml Oral.Susp) 30 ml PO DAILY PRN PRN Reason: Constipation Melatonin (Melatonin 3 Mg Tablet) 6 mg PO BEDTIME PRN PRN Reason: Insomnia Non-Formulary Medication (Etravirine) 200 mg PO BID [facility] Pharmacy Consult (Consult Rx Vancomycin Dosing) 1 each MISCELLANE DAILY PRN PRN Reason: Consult order Raltegravir (Raltegravir Potassium 400 Mg Tablet) 400 mg PO BID [facility] Last Admin: 07/29/24 09:12 Dose: 400 mg Documented By: KALEN Sodium Chloride (0.9 % Sodium Chloride Flush 3 Ml Syringe) 3 ml IVFLUSH QSHIFT [facility] Last Admin: 07/29/24 09:16 Dose: 3 ml Documented By: BURK Labs 07/27/24 15:58 07/29/24 05:40 Labs: Laboratory Results - last 24 hr 07/28/24 07/28/24 07/28/24 11:06 15:37 20:32 Hold Purple Top Estim Creat Clear Calc Estimated GFR POC Glucose 256 H 112 152 H 07/29/24 07/29/24 05:40 07:09 Hold Purple Top SEE NOTE Estim Creat Clear Calc 69.0 Estimated GFR > 60 POC Glucose 140 H Microbiology Microbiology Results: Microbiology 07/27/24 15:58 Blood Culture - Preliminary Blood - Venous No growth after 24 hours. 07/27/24 15:58 Blood Culture - Preliminary Blood - Venous No growth after 24 hours. Procedures Date of Service Date of Service: 07/29/24 Progress Note: A&P Assessment and plan (1) Acute osteomyelitis of toe of right foot: Status: Acute Assessment and Plan: He has a large ulcer with some fibrinous debris, superficial eschar I bluntly debrided this and cleaned the area with normal saline Applied dry dressings and wrapped the foot with Kerlix roll He is undecided about amputation and seems to be considering antibiotics only for now We will follow up Dry dressings daily for the foot and wrapped with Chen roll to keep clean Time Spent With Patient Time: Total time managing care of this patient today ____ minutes. Quality Stroke Does the patient have a stroke diagnosis?: No VTE Prior VTE?: No VTE Risk Level:: Medical - moderate - high VTE Device Contraindication: Treatment Not Indicated VTE Drug Contraindication: N/A - Med Ordered
[2024-07-29 11:25] LABS: Glucose, Whole Blood 253 mg/dL (60-115)
[2024-07-29] MEDS: Insulin Lispro 100 UNIT/ML 3 ML VIAL SUBCUT ×3 (11:39→20:52)
[2024-07-29 16:55] LABS: Glucose, Whole Blood 171 mg/dL (60-115)
[2024-07-29 17:14] LABS: Vancomycin Random 9.1 mcg/mL (15-20)
--- NOTE | 2024-07-29 17:28 | HE.PHANOTE ---
Re: Anayao Renal function is improving. Trough returned at 9.1. Dose increased to 1,000 q12h with predicted AUC 512, predicted trough 16.2. Next trough 07/30 @1500.
[2024-07-29] MEDS: vancomycin HCL 1,000 MG in 0.9 % Sodium Chloride 250 ML 270 MG IV (17:43)
[2024-07-29 19:43] LABS: Glucose, Whole Blood 183 mg/dL (60-115)
[2024-07-29] MEDS: Enoxaparin Sodium 40 MG/0.4 ML SYRINGE SUBCUT (20:53)
[2024-07-30] VITALS (7 sets, daily range): BP systolic 112–169; BP diastolic 67–93; PULSE 74–84; RESP 16–18; TEMP 36–37.3; O2SAT 93–97
[2024-07-30] MEDS: cefEPime HCl/D5W 2 GM/50 ML PIGGYBACK IV ×2 (03:58→16:33)
[2024-07-30] MEDS: vancomycin HCL 1,000 MG in 0.9 % Sodium Chloride 250 ML 270 MG IV ×2 (04:35→17:14)
[2024-07-30 06:50] LABS: Creatinine Clr Calc Pharmacy 62.9; Estimated Glomerular Filt Rate > 60
--- NOTE | 2024-07-30 07:01 | PC.NURSE ---
Late entry: Pt refusing all alarms, despite being on moderate fall risk. Pt A&Ox4, steady on feet, rings call clements appropriately. Pt was educated on the importance of the fall risk policy to prevent falls and to use the call clements for assistance, pt still refused. Pt stated that he will use the call clements when needed assistance OOB. Pt's bed in the lowest position, call clements w/in reach. Will continue to monitor.
[2024-07-30 07:11] LABS: Glucose, Whole Blood 145 mg/dL (60-115)
[2024-07-30] MEDS: amLODIPine Besylate 5 MG TABLET PO (08:11)
[2024-07-30] MEDS: hydroCHLOROthiazide 12.5 MG TABLET PO (08:11)
[2024-07-30] MEDS: lisinopriL 5 MG TABLET PO (08:11)
[2024-07-30] MEDS: DARUNAVIR ETHANOLATE 600 MG PO ×2 (08:11→21:06)
[2024-07-30] MEDS: glipiZIDE 5 MG TABLET PO ×2 (08:11→16:37)
[2024-07-30] MEDS: 0.9 % Sodium Chloride Flush 3 ML SYRINGE IVFLUSH ×3 (08:11→21:06)
[2024-07-30] MEDS: Raltegravir Potassium 400 MG TABLET PO ×2 (08:11→21:06)
--- NOTE | 2024-07-30 08:11 | PM.PNGS ---
Subjective Subjective Date of Service: 07/30/24 <Srinath Chaney PA-C - Last Filed: 07/30/24 09:28> 07/30/24 <Anish Ellis MD - Last Filed: 07/30/24 11:09> Patient reports: no new complaints <POPPY Bradshaw Last Filed: 07/30/24 09:28> Interval history: States he is doing well today. Denies pain in the second toe. Denies fever/chill. <Srinath Chaney PA-C - Last Filed: 07/30/24 09:28> Physical Exam Vital Signs: Vital Signs: Last Vital Signs Temp 96.8 F 07/30/24 07:04 Pulse 74 07/30/24 07:04 Resp 18 07/30/24 07:04 BP 169/93 H 07/30/24 07:04 Pulse Ox 97 07/30/24 07:04 O2 Del Method Room Air 07/30/24 07:04 BMI result Body Mass Index 27.3 <POPPY Bradshaw Last Filed: 07/30/24 09:28> Const: General: comfortable and no acute distress <Srinath Chaney PA-C - Last Filed: 07/30/24 09:28> Orientation/consciousness: patient oriented x3 <POPPY Bradshaw Last Filed: 07/30/24 09:28> Resp: Effort & Inspection: normal respiratory effort and able to speak in complete sentences <Srinath Chaney PA-C - Last Filed: 07/30/24 09:28> Skin: Other: 2 cm ulcer on the dorsal aspect of the R second toe, slough on the wound borders. scant amounts of serosanguenous discharge. No surrounding warmth, no evidence of fluid collection <POPPY Bradshaw Last Filed: 07/30/24 09:28> Neuro: General: patient oriented x3 <POPPY Bradshaw Last Filed: 07/30/24 09:28> Objective Data Active Medications Acetaminophen (Acetaminophen 325 Mg Tablet) 650 mg PO Q6H PRN PRN Reason: Pain, Mild 1-3,fever,headache Amlodipine Besylate (Amlodipine Besylate 5 Mg Tablet) 5 mg PO DAILY [facility]; Protocol Last Admin: 07/29/24 09:12 Dose: 5 mg Documented By: KALEN Calcium Carbonate (Calcium Carbonate 750 Mg Tab.Chew) 750 mg PO Q4H PRN PRN Reason: Heartburn Darunavir (Darunavir Ethanolate 600 Mg Tablet) 600 mg PO BID [facility] Last Admin: 07/29/24 20:51 Dose: 600 mg Documented By: LJ Dextrose (Dextrose 50 % 25 Gm/50 Ml Syringe) 25 gm IVPUSH Q15M PRN; Protocol PRN Reason: per Hypoglycemia Standing Ord. Enoxaparin Sodium (Enoxaparin Sodium 40 Mg/0.4 Ml Syringe) 40 mg SUBCUT Q24H [facility] Last Admin: 07/29/24 20:53 Dose: 40 mg Documented By: LJ Glipizide (Glipizide 5 Mg Tablet) 5 mg PO BIDWM [facility] Glucose (Glucose Gel 15 Gm Gel..Gram.) 15 gm PO Q15M PRN; Protocol PRN Reason: per Hypoglycemia Standing Ord. Hydrochlorothiazide (Hydrochlorothiazide 12.5 Mg Tablet) 12.5 mg PO DAILY [facility]; Protocol Last Admin: 07/29/24 09:13 Dose: 12.5 mg Documented By: KALEN Cefepime HCl (Maxipime) 2 gm in 50 mls @ 100 mls/hr IV Q12H [facility] Last Infusion: 07/30/24 04:31 Dose: Infused Documented By: LJ Vancomycin HCl 1,000 mg/ (Sodium Chloride) 270 mls @ 270 mls/hr IV Q12H [facility] Last Infusion: 07/30/24 06:03 Dose: Infused Documented By: LJ Insulin Human Lispro (Insulin Lispro 100 Unit/Ml 3 Ml Vial) 0 unit SUBCUT QIDACHS [facility]; Protocol Last Admin: 07/30/24 07:12 Dose: Not Given Documented By: ARNULFO Non-Admin Reason: No Insulin Coverage Lisinopril (Lisinopril 5 Mg Tablet) 5 mg PO DAILY [facility]; Protocol Last Admin: 07/29/24 11:11 Dose: Not Given Documented By: KALEN Non-Admin Reason: Physician Held Med Magnesium Hydroxide (Milk Of Magnesia 30 Ml Oral.Susp) 30 ml PO DAILY PRN PRN Reason: Constipation Melatonin (Melatonin 3 Mg Tablet) 6 mg PO BEDTIME PRN PRN Reason: Insomnia Non-Formulary Medication (Etravirine) 200 mg PO BID [facility] Pharmacy Consult (Consult Rx Vancomycin Dosing) 1 each MISCELLANE DAILY PRN PRN Reason: Consult order Raltegravir (Raltegravir Potassium 400 Mg Tablet) 400 mg PO BID [facility] Last Admin: 07/29/24 20:51 Dose: 400 mg Documented By: LJ Sodium Chloride (0.9 % Sodium Chloride Flush 3 Ml Syringe) 3 ml IVFLUSH QSHIFT [facility] Last Admin: 07/29/24 20:59 Dose: 3 ml Documented By: LJ <Srinath Chaney PA-C - Last Filed: 07/30/24 09:28> Labs CBC & Chem 7: 07/27/24 15:58 07/30/24 06:04 <Srinath Chaney PA-C - Last Filed: 07/30/24 09:28> Labs: Laboratory Results - last 24 hr 07/29/24 07/29/24 07/29/24 11:21 14:47 16:47 Hold Purple Top Estim Creat Clear Calc Estimated GFR POC Glucose 253 H 171 H Random Vancomycin 9.1 L 07/29/24 07/30/24 07/30/24 19:20 06:04 07:03 Hold Purple Top SEE NOTE Estim Creat Clear Calc 62.9 Estimated GFR > 60 POC Glucose 183 H 145 H Random Vancomycin <Srinath Chaney PA-C - Last Filed: 07/30/24 09:28> Microbiology Microbiology Results: Microbiology 07/27/24 15:58 Blood Culture - Preliminary Blood - Venous No growth after 48 hours. 07/27/24 15:58 Blood Culture - Preliminary Blood - Venous No growth after 48 hours. <Srinath Chaney PA-C - Last Filed: 07/30/24 09:28> Procedures Date of Service Date of Service: 07/30/24 <Srinath Chaney PA-C - Last Filed: 07/30/24 09:28> 07/30/24 <Anish Ellis MD - Last Filed: 07/30/24 11:09> Progress Note: A&P Assessment and plan (1) Acute osteomyelitis of toe of right foot: Status: Acute <Srinath Chaney PA-C - Last Filed: 07/30/24 09:28> Assessment and Plan: No events overnight No new complaints Ulcer remains the same - clean with some superficial eschar Doppler studies suggest anterior and posterior tibial disease Vascular consult Wound care for now Seen and examined independently <Anish Ellis MD - Last Filed: 07/30/24 11:09> Assessment and Plan: 74 year old male being followed for R second toe wound with associated osteomyelitis of the middle and distal phalanx. Ulcer on the dorsal aspect of the toe. eschar visible on the border of the ulceration. Dressing applied with silver alginate, covered with gauze and wrapped with kerlix. Patient continues to endorse that he would prefer antibiotics over amputation. Vascular consult pending. Will discuss with Dr. Shaw with further plans Continue current plan with antibiotic management Daily dressing changes Vascular consult pending <Srinath Chaney PA-C - Last Filed: 07/30/24 09:28> Time Spent With Patient Time: Total time managing care of this patient today _35___ minutes. <Srinath Chaney PA-C - Last Filed: 07/30/24 09:28> Quality Stroke Does the patient have a stroke diagnosis?: No <Srinath Chaney PA-C - Last Filed: 07/30/24 09:28> VTE Prior VTE?: No <Srinath Chaney PA-C - Last Filed: 07/30/24 09:28> VTE Risk Level:: Medical - moderate - high <Srinath Chaney PA-C - Last Filed: 07/30/24 09:28> VTE Device Contraindication: Treatment Not Indicated <Srinath Chaney PA-C - Last Filed: 07/30/24 09:28> VTE Drug Contraindication: N/A - Med Ordered <Srinath Chaney PA-C - Last Filed: 07/30/24 09:28>
--- NOTE | 2024-07-30 11:24 | PM.CNGS ---
History of Present Illness Consult details Consult date: 07/30/24 Narrative: We were consulted on Mamadou, for concerns of an ulcer on his toe with osteo. He presented to the ER on 07/27 with concerns of a wound on his second right toe and a smaller one on the great toe. He denies any injuries/wounds. He has a medical hx pertinent for DM and HIV on anti-retroviral medications; he has not had his CD4 levels checked recently. He denies any pain in the foot/toe but states he got concerned when it wasn't getting any better and his foot got swollen. He denied any fever, chills, or body aches. He states he does not get lower extremity swelling. He states he first noticed this wound mid-week last week. He states he has not been to his PCP in years. He states he has had decreased sensation in bilateral feet for awhile now, but has not gotten it checked out. His A1C in the ER was 9.2%; he was also diagnosed with DM. He was admitted for sepsis, likely due to osteo of the right second toe. Dr Ellis did debride the wounds on 07/27, which were measuring [id number] with exudates and superficial skin necrosis. The pt states he continues to not have pain in the area. He has no new concerns this morning. He has been eating and drinking well. Review of Systems Constitutional: Constitutional: Reports as per HPI and Denies weakness ENT: Reports Normal hearing present and Denies dizziness Cardiovascular: Cardiovascular: Reports as per HPI, Denies chest pain, Denies chest pain at rest, Denies chest pain with activity, Denies dyspnea and Denies dyspnea on exertion Respiratory: Respiratory: Reports as per HPI, Denies cough, Denies dyspnea and Denies dyspnea on exertion Gastrointestinal: Gastrointestinal: Reports as per HPI, Denies abdominal pain, Denies nausea and Denies vomiting Musculoskeletal: Musculoskeletal: Denies numbness Integumentary/Breasts: Skin/Breast: Reports as per HPI, Denies erythema and Denies wounds Neurologic: Reports Normal hearing present, Denies dizziness, Denies numbness, Denies Sensory deficit (Neuro) and Denies weakness Psychiatric: Psychiatric: Reports no additional psychiatric complaints Endocrine: Endocrine: Reports no additional endocrine complaints PMFSH Past Medical History Medical History (Updated 07/27/24 @ 20:43 by HOMAR Winters) HIV (human immunodeficiency virus infection) HTN (hypertension) Social History Social History Household Members: None Housing: Apartment Do you presently have visiting nurse or other home services: No Comment: pt steady on feet, refusing all alarms Patient Tobacco Use Status: Never used Tobacco Smoked in Last 30 Days: No Use of substances other than those prescribed or required for medical reasons: No Currently Displaying Signs/Symptoms of Drug Intoxication Withdrawal: No Have you been hit, kicked, punched, or otherwise hurt by someone within the past year? If so, by whom?: No Are you made to feel afraid or neglected: No Advance Directives: No Advance Directives Information Provided: Yes Do you have a plan to hurt others: No Plan Recently lost weight without trying: No How much weight loss: Not applicable Eating poorly because of decreased appetite: No Nutrition screen score: 0 Nutrition Risks: No Nutritional Risk service: No Meds Allergies Allergy/AdvReac Type Severity Reaction Status Date / Time No Known Allergies Allergy Verified 07/27/24 15:35 Active Medications: Current Medications Acetaminophen (Acetaminophen 325 Mg Tablet) 650 mg PO Q6H PRN PRN Reason: Pain, Mild 1-3,fever,headache Amlodipine Besylate (Amlodipine Besylate 5 Mg Tablet) 5 mg PO DAILY [facility]; Protocol Last Admin: 07/30/24 08:11 Dose: 5 mg Calcium Carbonate (Calcium Carbonate 750 Mg Tab.Chew) 750 mg PO Q4H PRN PRN Reason: Heartburn Darunavir (Darunavir Ethanolate 600 Mg Tablet) 600 mg PO BID [facility] Last Admin: 07/30/24 08:11 Dose: 600 mg Dextrose (Dextrose 50 % 25 Gm/50 Ml Syringe) 25 gm IVPUSH Q15M PRN; Protocol PRN Reason: per Hypoglycemia Standing Ord. Enoxaparin Sodium (Enoxaparin Sodium 40 Mg/0.4 Ml Syringe) 40 mg SUBCUT Q24H [facility] Last Admin: 07/29/24 20:53 Dose: 40 mg Glipizide (Glipizide 5 Mg Tablet) 5 mg PO BIDWM [facility] Last Admin: 07/30/24 08:11 Dose: 5 mg Glucose (Glucose Gel 15 Gm Gel..Gram.) 15 gm PO Q15M PRN; Protocol PRN Reason: per Hypoglycemia Standing Ord. Hydrochlorothiazide (Hydrochlorothiazide 12.5 Mg Tablet) 12.5 mg PO DAILY [facility]; Protocol Last Admin: 07/30/24 08:11 Dose: 12.5 mg Cefepime HCl (Maxipime) 2 gm in 50 mls @ 100 mls/hr IV Q12H [facility] Last Infusion: 07/30/24 04:31 Dose: Infused Vancomycin HCl 1,000 mg/ (Sodium Chloride) 270 mls @ 270 mls/hr IV Q12H [facility] Last Infusion: 07/30/24 06:03 Dose: Infused Insulin Human Lispro (Insulin Lispro 100 Unit/Ml 3 Ml Vial) 0 unit SUBCUT QIDACHS [facility]; Protocol Last Admin: 07/30/24 07:12 Dose: Not Given Lisinopril (Lisinopril 5 Mg Tablet) 5 mg PO DAILY [facility]; Protocol Last Admin: 07/30/24 08:11 Dose: 5 mg Magnesium Hydroxide (Milk Of Magnesia 30 Ml Oral.Susp) 30 ml PO DAILY PRN PRN Reason: Constipation Melatonin (Melatonin 3 Mg Tablet) 6 mg PO BEDTIME PRN PRN Reason: Insomnia Non-Formulary Medication (Etravirine) 200 mg PO BID [facility] Pharmacy Consult (Consult Rx Vancomycin Dosing) 1 each MISCELLANE DAILY PRN PRN Reason: Consult order Raltegravir (Raltegravir Potassium 400 Mg Tablet) 400 mg PO BID [facility] Last Admin: 07/30/24 08:11 Dose: 400 mg Sodium Chloride (0.9 % Sodium Chloride Flush 3 Ml Syringe) [facility] Last Admin: 07/30/24 08:11 Dose: 3 ml Home Medications ?Medication ?Instructions ?Recorded ?Confirmed ?Last Taken ?Type darunavir 600 mg tablet 600 mg PO BID 07/27/24 07/27/24 07/27/24 History etravirine 200 mg tablet 200 mg PO BID 07/27/24 07/27/24 07/27/24 History hydrochlorothiazide 12.5 mg tablet 12.5 mg PO DAILY 07/27/24 07/27/24 07/27/24 History lisinopril 10 mg tablet 10 mg PO DAILY 07/27/24 07/27/24 07/27/24 History raltegravir 400 mg tablet 400 mg PO BID 07/27/24 07/27/24 07/27/24 History ([place]) Physical Exam Vital Signs: Vital Signs: Last Vital Signs Temp 96.8 F 07/30/24 07:04 Pulse 74 07/30/24 07:04 Resp 18 07/30/24 07:04 BP 140/70 H 07/30/24 08:44 Pulse Ox 97 07/30/24 07:04 O2 Del Method Room Air 07/30/24 07:04 BMI result Body Mass Index 27.3 Const: General: comfortable and no acute distress Orientation/consciousness: patient oriented x3 HEENT: Ears: hearing grossly normal bilaterally Resp: Effort & Inspection: normal respiratory effort and able to speak in complete sentences Auscultation: clear to auscultation bilaterally Cardio: Rate: regular rate Rhythm: regular rhythm Heart sounds: S1 normal heart sound present and S2 normal heart sound present Bruits: no abdominal aortic bruits, no carotid bruits, no femoral bruits and no renal bruits GI: Palpation (GI): No Abdominal aortic bruit present Neuro: General: patient oriented x3 Cranial nerves: Yes Normal hearing present Sensory Exam: No Sensory deficit (Neuro) Extrem: Other: Right 2nd toe: small amt of yellow slough noted on the wound edges. No surrounding erythema or warmth. Slight serosanginous drainage noted on the bandage. Faint but palpable DP pulses, unable to palpate PT pulse. No lower extremity swelling, wounds, or ulcerations. Results Labs 07/27/24 15:58 07/30/24 06:04 Labs: Abnormal lab results 07/29/24 07/29/24 07/29/24 Range/Units 11:21 14:47 16:47 POC Glucose 253 H 171 H (60-115) mg/dL Random Vancomycin 9.1 L (15-20) mcg/mL 07/29/24 07/30/24 Range/Units 19:20 07:03 POC Glucose 183 H 145 H (60-115) mg/dL Random Vancomycin (15-20) mcg/mL BMP 07/30/24 06:04 Creatinine 1.03 All other labs normal. Assessment and Plan (1) Acute osteomyelitis of toe of right foot: Status: Acute Plan We were consulted today for Mamadou for concerns of osteo of the right second toe with an ulceration. The pt was found in the ER to have an A1C of 9.2%. Toe XR revealed diffuse soft tissue swelling with focal demineralization of the mid to distal phalange of the 2nd right toe, suspicious for osteo; also possible fx of the proximal phalanx, evaluation limited by foreshortening. Arterial duplex was noteable for no significant outflow stenosis and hemodynamically significant AT and PT stenosis. He was started on Cefempime and Vanco. Dr Ellis did discuss with the pt on 07/27 about continuing with IV abx vs amputation, and the pt wanted to persue the Abx. I discussed that as well this morning, but we will need to have ID weigh in and I would discuss his case with Dr Shaw. There is no acute vascular surgical intervention at this point. We would continue with the Lovenox and IV Abx and we await Infectious Diseases recommendations. We will continue to monitor. If there are any questions or concerns, please do not hesitate to reach out to us. Procedures Date of Service Date of Service: 07/30/24
[2024-07-30 11:28] LABS: Glucose, Whole Blood 199 mg/dL (60-115)
[2024-07-30] MEDS: Insulin Lispro 100 UNIT/ML 3 ML VIAL SUBCUT ×2 (11:37→16:35)
[2024-07-30 13:13] LABS: Vancomycin Random 18.5 mcg/mL (15-20)
--- NOTE | 2024-07-30 13:23 | HE.PHANOTE ---
RE: VANCO DOSING Trough was scheduled @1500 but was drawn @1250, came back as 18.5 mg/L. Continue with dose of 1000 mg q12h, next trough is scheduled for 07/31/24@1500.
--- NOTE | 2024-07-30 14:31 | P.PNIM_ITS ---
Subjective Subjective Date of Service: 07/30/24 Interval History: foot osteo, right tibial stensosis Review of Systems denies foot pain has mild erythema foot seems similar Review of Systems: Yes all other systems are reviewed and are negative Physical Exam 2 Vital Signs: Vital Signs: Last Vital Signs Temp 97.4 F 07/30/24 11:48 Pulse 84 07/30/24 11:48 Resp 16 07/30/24 11:48 BP 135/74 07/30/24 11:48 Pulse Ox 96 07/30/24 11:48 O2 Del Method Room Air 07/30/24 11:48 BMI result Body Mass Index 27.3 General: AOx3, no acute distress. Pt unkempt, malodorous. Resp: CTA bilaterally CVS: S1, S2, RRR GI: +BS, NT, no distention Skin: Warm, dry Neuro: non focal Extremities: Erythema, swelling of right lower extremity and foot. Right 2nd digit of foot as pictured below. Objective Data Active Medications Acetaminophen (Acetaminophen 325 Mg Tablet) 650 mg PO Q6H PRN PRN Reason: Pain, Mild 1-3,fever,headache Amlodipine Besylate (Amlodipine Besylate 5 Mg Tablet) 5 mg PO DAILY [facility]; Protocol Last Admin: 07/30/24 08:11 Dose: 5 mg Documented By: ARNULFO Calcium Carbonate (Calcium Carbonate 750 Mg Tab.Chew) 750 mg PO Q4H PRN PRN Reason: Heartburn Darunavir (Darunavir Ethanolate 600 Mg Tablet) 600 mg PO BID [facility] Last Admin: 07/30/24 08:11 Dose: 600 mg Documented By: ARNULFO Dextrose (Dextrose 50 % 25 Gm/50 Ml Syringe) 25 gm IVPUSH Q15M PRN; Protocol PRN Reason: per Hypoglycemia Standing Ord. Enoxaparin Sodium (Enoxaparin Sodium 40 Mg/0.4 Ml Syringe) 40 mg SUBCUT Q24H [facility] Last Admin: 07/29/24 20:53 Dose: 40 mg Documented By: LJ Glipizide (Glipizide 5 Mg Tablet) 5 mg PO BIDWM [facility] Last Admin: 07/30/24 08:11 Dose: 5 mg Documented By: ARNULFO Glucose (Glucose Gel 15 Gm Gel..Gram.) 15 gm PO Q15M PRN; Protocol PRN Reason: per Hypoglycemia Standing Ord. Hydrochlorothiazide (Hydrochlorothiazide 12.5 Mg Tablet) 12.5 mg PO DAILY [facility]; Protocol Last Admin: 07/30/24 08:11 Dose: 12.5 mg Documented By: ARNULFO Cefepime HCl (Maxipime) 2 gm in 50 mls @ 100 mls/hr IV Q12H [facility] Last Infusion: 07/30/24 04:31 Dose: Infused Documented By: LJ Vancomycin HCl 1,000 mg/ (Sodium Chloride) 270 mls @ 270 mls/hr IV Q12H [facility] Last Infusion: 07/30/24 06:03 Dose: Infused Documented By: LJ Insulin Human Lispro (Insulin Lispro 100 Unit/Ml 3 Ml Vial) 0 unit SUBCUT QIDACHS [facility]; Protocol Last Admin: 07/30/24 11:37 Dose: 2 unit Documented By: ARNULFO Lisinopril (Lisinopril 5 Mg Tablet) 5 mg PO DAILY [facility]; Protocol Last Admin: 07/30/24 08:11 Dose: 5 mg Documented By: ARNULFO Magnesium Hydroxide (Milk Of Magnesia 30 Ml Oral.Susp) 30 ml PO DAILY PRN PRN Reason: Constipation Melatonin (Melatonin 3 Mg Tablet) 6 mg PO BEDTIME PRN PRN Reason: Insomnia Non-Formulary Medication (Etravirine) 200 mg PO BID [facility] Pharmacy Consult (Consult Rx Vancomycin Dosing) 1 each MISCELLANE DAILY PRN PRN Reason: Consult order Raltegravir (Raltegravir Potassium 400 Mg Tablet) 400 mg PO BID [facility] Last Admin: 07/30/24 08:11 Dose: 400 mg Documented By: ARNULFO Sodium Chloride (0.9 % Sodium Chloride Flush 3 Ml Syringe) 3 ml IVFLUSH QSHIFT [facility] Last Admin: 07/30/24 08:11 Dose: 3 ml Documented By: ARNULFO Labs 07/27/24 15:58 07/30/24 06:04 Labs: Laboratory Results - last 24 hr 07/29/24 07/29/24 07/29/24 14:47 16:47 19:20 Hold Purple Top Estim Creat Clear Calc Estimated GFR POC Glucose 171 H 183 H Random Vancomycin 9.1 L 07/30/24 07/30/24 07/30/24 06:04 07:03 11:18 Hold Purple Top SEE NOTE Estim Creat Clear Calc 62.9 Estimated GFR > 60 POC Glucose 145 H 199 H Random Vancomycin 07/30/24 12:50 Hold Purple Top Estim Creat Clear Calc Estimated GFR POC Glucose Random Vancomycin 18.5 Microbiology Microbiology Results: Microbiology 07/27/24 15:58 Blood Culture - Preliminary Blood - Venous No growth after 48 hours. 07/27/24 15:58 Blood Culture - Preliminary Blood - Venous No growth after 48 hours. Assessment and Plan (1) Acute osteomyelitis of toe of right foot: Status: Acute Assessment and Plan: 74-year-old male with a PMH significant for HIV and HTN?who presents to the ED for evaluation of worsening right toe wound. Pt is overall a rather poor and vague historian. Pt is admitted to the hospital for treatment and further evaluation of right 2nd toe osteomyelitis in the setting of new onset diabetes. Acute osteomyelitis of 2nd digit on right foot In the setting of undiagnosed/new onset diabetes Pt with worsening right foot for the past 3-4 days X-ray of right foot suggestive of osteomyelitis No sepsis: Tachycardia, but no tachypnea, fever, or leukocytosis right Le Doppler:No significant outflow stenosis.Hemodynamically significant anterior and posterior tibial artery stenoses. continue vancomycin and cefepime, started 07/27/2024 General surgery consult noted-s/p bluntly debrided this and cleaned the area with normal saline. Dry dressings daily for the foot and wrapped with Chen roll to keep clean vascular and iD eval New onset type 2 diabetes with hyperglycemia A1c 9.2 patient prefers po meds -adjusted glipizide 5mg po bid ,moniter fs. fs with coverage ,Diabetic diet, diabetic counseling Acute lactic acidosis Initial lactic acid 2.6 with repeat 2.2 with hydration Not secondary to sepsis no need to trend further lactic acid . HTN uncontrolled on hctz ,lisinopril adjusted 10 mg qd and amlodipine 2.5 mg qd. HIV Continue home meds Check CD4 levels as pt has not followed with PCP in some years id eval Full Code, verified with pt DVT Prophylaxis: Lovenox ongoing need: hospitalization of at least two nights for treatment of?acute right 2nd toe osteomyelitis in the setting of new onset diabetes that will require IV antibiotics and specialist consultation with vascular ,id eval Quality Stroke Does the patient have a stroke diagnosis?: No VTE Prior VTE?: No VTE Risk Level:: Medical - moderate - high VTE Device Contraindication: Treatment Not Indicated VTE Drug Contraindication: N/A - Med Ordered
--- NOTE | 2024-07-30 15:17 | P.CDIM_ITS ---
PROVIDER RESPONSE TEXT: To clarify, the appropriate diagnosis supported by the clinical indicators: Non-excisional debridement: skin and subcutaneous layer QUERY TEXT: PHYSICIAN'S DOCUMENTATION REQUEST Date of Query: 07/30/2024 11:20 AM EDT Patient Name: Mamadou Villarreal Admit Date: 07/27/2024 Dear Anish Ellis MD, A review of the medical record indicates additional documentation may be needed. Please review below and update the documentation accordingly. Clinical Indicators: General surgery progress noted dated 07/29/24 - He has a large ulcer with some fibrinous debris, super ficial eschar. I bluntly debrided this and cleansed the area with normal saline. Applied dry dressings and wrapped foot with Kerlix roll. Osteomyelitis of 2nd digit on right foot/new onset type 2 diabetes. Could you provide, in the Progress Notes, further clarification regarding the depth of the debridemen t? Non-excisional debridement Possible for further specifics of the blunt debridement to what depth ex. Skin, Subcutaneous tissue a nd fascia or other etc. Other specified Other (explain) Clinically unable to determine (explain) Thank you, Grisel Cr, CCS, CDIS Use of terms such as suspected, likely, concern for, or probable (associated with a specific diagnosi s that is being evaluated, monitored, or treated as if it exists) are acceptable and can be coded in the inpatient se tting, when documented at the time of discharge. Please use your independent medical judgment in providing your response. THIS QUERY IS PART OF THE PERMANENT MEDICAL RECORD
[2024-07-30 16:12] LABS: Glucose, Whole Blood 156 mg/dL (60-115)
[2024-07-30 20:33] LABS: Glucose, Whole Blood 139 mg/dL (60-115)
[2024-07-30] MEDS: Enoxaparin Sodium 40 MG/0.4 ML SYRINGE SUBCUT (21:08)
[2024-07-31 03:14] VITALS: BP 123/72; PULSE 70; RESP 16; TEMP 36.6; O2SAT 93
[2024-07-31] MEDS: cefEPime HCl/D5W 2 GM/50 ML PIGGYBACK IV ×2 (04:13→16:27)
[2024-07-31] MEDS: vancomycin HCL 1,000 MG in 0.9 % Sodium Chloride 250 ML 270 MG IV (04:48)
[2024-07-31 07:13] LABS: Creatinine Clr Calc Pharmacy 60.6; Estimated Glomerular Filt Rate > 60
[2024-07-31 07:36] LABS: Glucose, Whole Blood 117 mg/dL (60-115)
--- NOTE | 2024-07-31 07:36 | P.PNGS_ITS ---
Subjective Subjective Date of Service: 07/31/24 <Srinath Chaney PA-C - Last Filed: 07/31/24 10:14> 07/31/24 <Anish Ellis MD - Last Filed: 07/31/24 10:19> Patient reports: no new complaints and tolerating a regular diet <POPPY Bradshaw Last Filed: 07/31/24 10:14> Interval history: patient reports he is doing well this morning. He has no new complains. denies pain in the toe/foot. denies fever or chills. Patient reports he spoke with the vascular team, and is considering his options of possible amputation vs antibiotics <Srinath Chaney PA-C - Last Filed: 07/31/24 10:14> Physical Exam 2 Vital Signs: Vital Signs: Last Vital Signs Temp 97.8 F 07/31/24 03:14 Pulse 70 07/31/24 03:14 Resp 16 07/31/24 03:14 BP 123/72 07/31/24 03:14 Pulse Ox 93 07/31/24 03:14 O2 Del Method Room Air 07/31/24 03:14 BMI result Body Mass Index 27.3 <Srinath Chaney PA-C - Last Filed: 07/31/24 10:14> Const: General: comfortable and no acute distress <POPPY Bradshaw Last Filed: 07/31/24 10:14> Orientation/consciousness: patient oriented x3 <Srinath Chaney PA-C - Last Filed: 07/31/24 10:14> Resp: Effort & Inspection: normal respiratory effort and able to speak in complete sentences <POPPY Bradshaw Last Filed: 07/31/24 10:14> Neuro: General: patient oriented x3 <POPPY Bradshaw Last Filed: 07/31/24 10:14> Extrem: Other: right second toe: 2xc cm ulceration with slough on the wound border. the toe is edematous. minimal serosanguenous discharge <POPPY Bradshaw Last Filed: 07/31/24 10:14> Objective Data Active Medications Acetaminophen (Acetaminophen 325 Mg Tablet) 650 mg PO Q6H PRN PRN Reason: Pain, Mild 1-3,fever,headache Amlodipine Besylate (Amlodipine Besylate 2.5 Mg Tablet) 2.5 mg PO DAILY [facility]; Protocol Calcium Carbonate (Calcium Carbonate 750 Mg Tab.Chew) 750 mg PO Q4H PRN PRN Reason: Heartburn Darunavir (Darunavir Ethanolate 600 Mg Tablet) 600 mg PO BID [facility] Last Admin: 07/30/24 21:06 Dose: 600 mg Documented By: LJ Dextrose (Dextrose 50 % 25 Gm/50 Ml Syringe) 25 gm IVPUSH Q15M PRN; Protocol PRN Reason: per Hypoglycemia Standing Ord. Enoxaparin Sodium (Enoxaparin Sodium 40 Mg/0.4 Ml Syringe) 40 mg SUBCUT Q24H [facility] Last Admin: 07/30/24 21:08 Dose: 40 mg Documented By: LJ Glipizide (Glipizide 5 Mg Tablet) 5 mg PO BIDWM [facility] Last Admin: 07/30/24 16:37 Dose: 5 mg Documented By: ARNULFO Glucose (Glucose Gel 15 Gm Gel..Gram.) 15 gm PO Q15M PRN; Protocol PRN Reason: per Hypoglycemia Standing Ord. Hydrochlorothiazide (Hydrochlorothiazide 12.5 Mg Tablet) 12.5 mg PO DAILY [facility]; Protocol Last Admin: 07/30/24 08:11 Dose: 12.5 mg Documented By: ARNULFO Cefepime HCl (Maxipime) 2 gm in 50 mls @ 100 mls/hr IV Q12H [facility] Last Infusion: 07/31/24 04:45 Dose: Infused Documented By: LJ Vancomycin HCl 1,000 mg/ (Sodium Chloride) 270 mls @ 270 mls/hr IV Q12H [facility] Last Infusion: 07/31/24 05:54 Dose: Infused Documented By: LJ Insulin Human Lispro (Insulin Lispro 100 Unit/Ml 3 Ml Vial) 0 unit SUBCUT QIDACHS [facility]; Protocol Last Admin: 07/30/24 20:38 Dose: Not Given Documented By: LJ Non-Admin Reason: No Insulin Coverage Lisinopril (Lisinopril 10 Mg Tablet) 10 mg PO DAILY [facility]; Protocol Magnesium Hydroxide (Milk Of Magnesia 30 Ml Oral.Susp) 30 ml PO DAILY PRN PRN Reason: Constipation Melatonin (Melatonin 3 Mg Tablet) 6 mg PO BEDTIME PRN PRN Reason: Insomnia Non-Formulary Medication (Etravirine) 200 mg PO BID [facility] Pharmacy Consult (Consult Rx Vancomycin Dosing) 1 each MISCELLANE DAILY PRN PRN Reason: Consult order Raltegravir (Raltegravir Potassium 400 Mg Tablet) 400 mg PO BID [facility] Last Admin: 07/30/24 21:06 Dose: 400 mg Documented By: LJ Sodium Chloride (0.9 % Sodium Chloride Flush 3 Ml Syringe) 3 ml IVFLUSH QSHIFT [facility] Last Admin: 07/30/24 21:06 Dose: 3 ml Documented By: LJ <Srinath Chaney PA-C - Last Filed: 07/31/24 10:14> Labs CBC & Chem 7: 07/27/24 15:58 07/31/24 05:55 <Srinath Chaney PA-C - Last Filed: 07/31/24 10:14> Labs: Laboratory Results - last 24 hr 07/30/24 07/30/24 07/30/24 11:18 12:50 16:05 Hold Purple Top Estim Creat Clear Calc Estimated GFR POC Glucose 199 H 156 H Random Vancomycin 18.5 07/30/24 07/31/24 20:26 05:55 Hold Purple Top SEE NOTE Estim Creat Clear Calc 60.6 Estimated GFR > 60 POC Glucose 139 H Random Vancomycin <Srinath Chaney PA-C - Last Filed: 07/31/24 10:14> Procedures Date of Service Date of Service: 07/31/24 <Srinath Chaney PA-C - Last Filed: 07/31/24 10:14> 07/31/24 <Anish Ellis MD - Last Filed: 07/31/24 10:19> Progress Note: A&P Assessment and plan (1) Acute osteomyelitis of toe of right foot: Status: Acute <Srinath Chaney PA-C - Last Filed: 07/31/24 10:14> Assessment and Plan: No events reported No fever 2nd toe looks the same - with ulcer, scanty discharge He is considering toe amputation We will schedule this once he decides and if vascular surgery service is not planning on any further workup Continue wound wound care Seen and examined independently <Anish Ellis MD - Last Filed: 07/31/24 10:19> Assessment and Plan: 74-year-old male being followed for right 2nd toe wound with associated osteomyelitis of the middle and distal phalanx. No acute changes overnight. Patient denying pain, swelling. Vascular input appreciated. He reports that after speaking with vascular surgery he is now reconsidering his options, antibiotics versus amputation. Feels like he needs some time to make this decision. Exam is largely unchanged. The dressing was again changed this morning using silver alginate, covered with gauze and wrap with a Kerlix. We will continue to follow and check in with the patient this afternoon regarding his decision for further management. Continue antibiotic recommendations per hospitalist team ID consult pending Continue with daily dressing changes <Srinath Chaney PA-C - Last Filed: 07/31/24 10:14> Time Spent With Patient Time: Total time managing care of this patient today ____ minutes. <Srinath Chaney PA-C - Last Filed: 07/31/24 10:14> Quality Stroke Does the patient have a stroke diagnosis?: No <Srinath Chaney PA-C - Last Filed: 07/31/24 10:14> VTE Prior VTE?: No <Srinath Chaney PA-C - Last Filed: 07/31/24 10:14> VTE Risk Level:: Medical - moderate - high <Srinath Chaney PA-C - Last Filed: 07/31/24 10:14> VTE Device Contraindication: Treatment Not Indicated <Srinath Chaney PA-C - Last Filed: 07/31/24 10:14> VTE Drug Contraindication: N/A - Med Ordered <Srinath Chaney PA-C - Last Filed: 07/31/24 10:14>
[2024-07-31] MEDS: hydroCHLOROthiazide 12.5 MG TABLET PO (07:46)
[2024-07-31 07:47] VITALS: BP 145/78; PULSE 74; RESP 18; TEMP 36.3; O2SAT 97
[2024-07-31] MEDS: 0.9 % Sodium Chloride Flush 3 ML SYRINGE IVFLUSH ×3 (07:47→21:18)
[2024-07-31] MEDS: glipiZIDE 5 MG TABLET PO ×2 (07:47→16:24)
[2024-07-31] MEDS: Raltegravir Potassium 400 MG TABLET PO ×2 (07:47→20:42)
[2024-07-31] MEDS: lisinopriL 10 MG TABLET PO (07:47)
[2024-07-31] MEDS: amLODIPine Besylate 2.5 MG TABLET PO (07:47)
[2024-07-31] MEDS: DARUNAVIR ETHANOLATE 600 MG PO ×2 (07:47→20:42)
--- NOTE | 2024-07-31 09:10 | HO.VASCPN ---
Subjective Subjective Date of Service: 07/31/24 Interval history: Mamadou is doing well this morning. He is eating, drinking, and sleeping well. He continues with no pain in the foot/toe. He is getting daily dressing changes. He has no new concerns this morning. Physical Exam Vital Signs: Vital Signs: Last Vital Signs Temp 97.4 F 07/31/24 07:47 Pulse 74 07/31/24 07:47 Resp 18 07/31/24 07:47 BP 145/78 H 07/31/24 07:47 Pulse Ox 97 07/31/24 07:47 O2 Del Method Room Air 07/31/24 07:47 BMI result Body Mass Index 27.3 Const: General: comfortable and no acute distress Orientation/consciousness: patient oriented x3 HEENT: Ears: hearing grossly normal bilaterally Resp: Effort & Inspection: normal respiratory effort and able to speak in complete sentences Auscultation: clear to auscultation bilaterally Cardio: Rate: regular rate Rhythm: regular rhythm Heart sounds: S1 normal heart sound present and S2 normal heart sound present Bruits: no abdominal aortic bruits, no carotid bruits, no femoral bruits and no renal bruits GI: Palpation (GI): No Abdominal aortic bruit present Neuro: General: patient oriented x3 Cranial nerves: Yes CN's II-XII intact bilaterally Extrem: Other: Right foot: dressing not taken down this morning, will be changed later. Progress Note: A&P Assessment and plan (1) Acute osteomyelitis of toe of right foot: Status: Acute Assessment and Plan: Mamadou remains stable from a vascular standpoint. He continues with daily dressing changes. He continues with IV Abx. We will await ID recommendations. We will continue to monitor. If there are any questions or concerns, please do not hesitate to reach out to us. Time Spent With Patient Time: Total time managing care of this patient today ____ minutes. Procedures Date of Service Date of Service: 07/31/24 Quality Stroke Does the patient have a stroke diagnosis?: No VTE Prior VTE?: No VTE Risk Level:: Medical - moderate - high VTE Device Contraindication: Treatment Not Indicated VTE Drug Contraindication: N/A - Med Ordered
[2024-07-31 11:20] LABS: Glucose, Whole Blood 190 mg/dL (60-115)
--- NOTE | 2024-07-31 11:34 | P.PNVS_ITS ---
Subjective Subjective Date of Service: 07/31/24 Patient reports: no new complaints and feels better Interval history: Patient seen and examined. No significant events overnight. Appears to be doing relatively well. He is just overall concerned about the status of his foot. Unfortunately he is a newly diagnosed diabetic with a hemoglobin A1c of 9.2. Now for routine vascular follow-up. Physical Exam Vital Signs: Vital Signs: Last Vital Signs Temp 97.4 F 07/31/24 07:47 Pulse 74 07/31/24 07:47 Resp 18 07/31/24 07:47 BP 145/78 H 07/31/24 07:47 Pulse Ox 97 07/31/24 07:47 O2 Del Method Room Air 07/31/24 07:47 BMI result Body Mass Index 27.3 Const: General: cooperative, healthy appearing and comfortable Orientation/consciousness: oriented to person, oriented to place and oriented to time HEENT: Head: Yes normal to inspection Neck: Neck: Yes normal visual inspection Carotids: no bruits Chest: Chest palpation & inspection: normal inspection of the chest Resp: Effort & Inspection: normal respiratory effort and able to speak in com plete sentences Auscultation: clear to auscultation bilaterally, no crackles, no rales, no rhonchi and no wheezes Cardio: Other: Palpable right posterior tibial pulse Rate: regular rate Rhythm: regular rhythm Heart sounds: S1 normal heart sound present and S2 normal heart sound present Bruits: no carotid bruits GI: Inspection: Yes normal to inspection Skin: Wounds: no wounds Hair: normal Neuro: General: oriented to person, oriented to place and oriented to time Cranial nerves: Yes CN's II-XII intact bilaterally and Yes Normal hearing present Cognition (Neuro): normal cognition Motor exam (neuro): 5/5 motor strength present throughout Extrem: Other: Right 2nd toe nonhealing ulcer General: No clubbing, No cyanosis and No edema Psych: Appearance: grossly normal Mental Status: mental status grossly normal Speech and movement: Normal speech and movement present Progress Note: A&P Assessment and plan (1) Acute osteomyelitis of toe of right foot: Status: Acute Assessment and Plan: In short there is concern of osteomyelitis on this gentleman on the right 2nd toe. I do not think the arterial supply is an issue as he does have a palpable posterior tibial pulse. We did discuss management of diabetes to try to get that hemoglobin A1c down. In addition he will most likely require long-term IV antibiotics. No intervention from our perspective. He can follow up with us as an outpatient upon discharge. Thank you for allowing us to assist in his care. If there are any questions or concerns please do not hesitate to contact us. Time Spent With Patient Time: Total time managing care of this patient today ____ minutes. Procedures Date of Service Date of Service: 07/31/24 Quality Stroke Does the patient have a stroke diagnosis?: No VTE Prior VTE?: No VTE Risk Level:: Medical - moderate - high VTE Device Contraindication: Treatment Not Indicated VTE Drug Contraindication: N/A - Med Ordered
--- NOTE | 2024-07-31 11:36 | P.PNIM_ITS ---
Subjective Subjective Date of Service: 07/31/24 Interval History: Follow up foot osteo, right tibial stenosis Review of Systems denies foot pain has mild erythema foot seems similar Review of Systems: Yes all other systems are reviewed and are negative Physical Exam 2 Vital Signs: Vital Signs: Last Vital Signs Temp 97.4 F 07/31/24 07:47 Pulse 74 07/31/24 07:47 Resp 18 07/31/24 07:47 BP 145/78 H 07/31/24 07:47 Pulse Ox 97 07/31/24 07:47 O2 Del Method Room Air 07/31/24 07:47 BMI result Body Mass Index 27.3 Appearing in no acute distress lung sounds are clear to auscultation heart regular rate rhythm, clear S1, S2 positive bowel sounds, abdomen is soft, nontender neuro patient is alert x3, no focal deficits Objective Data Active Medications Acetaminophen (Acetaminophen 325 Mg Tablet) 650 mg PO Q6H PRN PRN Reason: Pain, Mild 1-3,fever,headache Amlodipine Besylate (Amlodipine Besylate 2.5 Mg Tablet) 2.5 mg PO DAILY [facility]; Protocol Last Admin: 07/31/24 07:47 Dose: 2.5 mg Documented By: ARNULFO Calcium Carbonate (Calcium Carbonate 750 Mg Tab.Chew) 750 mg PO Q4H PRN PRN Reason: Heartburn Darunavir (Darunavir Ethanolate 600 Mg Tablet) 600 mg PO BID [facility] Last Admin: 07/31/24 07:47 Dose: 600 mg Documented By: ARNULFO Dextrose (Dextrose 50 % 25 Gm/50 Ml Syringe) 25 gm IVPUSH Q15M PRN; Protocol PRN Reason: per Hypoglycemia Standing Ord. Enoxaparin Sodium (Enoxaparin Sodium 40 Mg/0.4 Ml Syringe) 40 mg SUBCUT Q24H [facility] Last Admin: 07/30/24 21:08 Dose: 40 mg Documented By: LJ Glipizide (Glipizide 5 Mg Tablet) 5 mg PO BIDWM [facility] Last Admin: 07/31/24 07:47 Dose: 5 mg Documented By: ARNULFO Glucose (Glucose Gel 15 Gm Gel..Gram.) 15 gm PO Q15M PRN; Protocol PRN Reason: per Hypoglycemia Standing Ord. Hydrochlorothiazide (Hydrochlorothiazide 12.5 Mg Tablet) 12.5 mg PO DAILY [facility]; Protocol Last Admin: 07/31/24 07:46 Dose: 12.5 mg Documented By: ARNULFO Cefepime HCl (Maxipime) 2 gm in 50 mls @ 100 mls/hr IV Q12H [facility] Last Infusion: 07/31/24 04:45 Dose: Infused Documented By: LJ Vancomycin HCl 1,000 mg/ (Sodium Chloride) 270 mls @ 270 mls/hr IV Q12H [facility] Last Infusion: 07/31/24 05:54 Dose: Infused Documented By: LJ Insulin Human Lispro (Insulin Lispro 100 Unit/Ml 3 Ml Vial) 0 unit SUBCUT QIDACHS [facility]; Protocol Last Admin: 07/31/24 07:43 Dose: Not Given Documented By: ARNULFO Non-Admin Reason: No Insulin Coverage Lisinopril (Lisinopril 10 Mg Tablet) 10 mg PO DAILY [facility]; Protocol Last Admin: 07/31/24 07:47 Dose: 10 mg Documented By: ARNULFO Magnesium Hydroxide (Milk Of Magnesia 30 Ml Oral.Susp) 30 ml PO DAILY PRN PRN Reason: Constipation Melatonin (Melatonin 3 Mg Tablet) 6 mg PO BEDTIME PRN PRN Reason: Insomnia Non-Formulary Medication (Etravirine) 200 mg PO BID [facility] Pharmacy Consult (Consult Rx Vancomycin Dosing) 1 each MISCELLANE DAILY PRN PRN Reason: Consult order Raltegravir (Raltegravir Potassium 400 Mg Tablet) 400 mg PO BID [facility] Last Admin: 07/31/24 07:47 Dose: 400 mg Documented By: ARNULFO Sodium Chloride (0.9 % Sodium Chloride Flush 3 Ml Syringe) 3 ml IVFLUSH QSHIFT [facility] Last Admin: 07/31/24 07:47 Dose: 3 ml Documented By: ARNULFO Labs 07/27/24 15:58 07/31/24 05:55 Labs: Laboratory Results - last 24 hr 07/30/24 07/30/24 07/30/24 12:50 16:05 20:26 Hold Purple Top Estim Creat Clear Calc Estimated GFR POC Glucose 156 H 139 H Random Vancomycin 18.5 07/31/24 07/31/24 07/31/24 05:55 07:23 11:11 Hold Purple Top SEE NOTE Estim Creat Clear Calc 60.6 Estimated GFR > 60 POC Glucose 117 H 190 H Random Vancomycin Assessment and Plan (1) Acute osteomyelitis of toe of right foot: Status: Acute Assessment and Plan: 74-year-old male with a PMH significant for HIV and HTN?who presents to the ED for evaluation of worsening right toe wound. Pt admitted to the hospital for treatment and further evaluation of right 2nd toe osteomyelitis in the setting of new onset diabetes. Acute osteomyelitis of 2nd digit on right foot In the setting of undiagnosed/new onset diabetes Pt with worsening right foot for the past 3-4 days X-ray of right foot suggestive of osteomyelitis Right Le Doppler with No significant outflow stenosis. 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 continue vancomycin and cefepime, started 07/27/2024 General surgery consult noted-s/p bluntly debrided this and cleaned the area with normal saline. will discuss re amputation Dry dressings daily for the foot and wrapped with Chen roll to keep clean vascular and iD eval> no surgical intervention planned New onset type 2 diabetes with hyperglycemia A1c 9.2 patient prefers po meds>adjusted glipizide 5mg po bid ss, Diabetic diet, diabetic counseling Acute lactic acidosis Initial lactic acid 2.6 with repeat 2.2 with hydration Not secondary to sepsis no need to trend further lactic acid . HTN uncontrolled on hctz, lisinopril adjusted 10 mg qd and amlodipine 2.5 mg qd. HIV Continue home meds Check CD4 levels as pt has not followed with PCP in some years ID eval Full Code, verified with pt DVT Prophylaxis: Lovenox Quality Stroke Does the patient have a stroke diagnosis?: No VTE Prior VTE?: No VTE Risk Level:: Medical - moderate - high VTE Device Contraindication: Treatment Not Indicated VTE Drug Contraindication: N/A - Med Ordered
[2024-07-31] MEDS: Insulin Lispro 100 UNIT/ML 3 ML VIAL SUBCUT ×2 (11:41→16:23)
[2024-07-31 11:51] VITALS: BP 136/76; PULSE 81; RESP 18; TEMP 36.1; O2SAT 95
[2024-07-31 15:24] VITALS: BP 122/66; PULSE 80; RESP 16; TEMP 36.7; O2SAT 96
[2024-07-31 15:32] LABS: Vancomycin Random 21.9 mcg/mL (15-20)
[2024-07-31 16:16] LABS: Glucose, Whole Blood 155 mg/dL (60-115)
[2024-07-31 19:43] VITALS: BP 134/78; PULSE 80; RESP 18; TEMP 36.6; O2SAT 98
[2024-07-31] MEDS: vancomycin HCL 750 MG in 0.9 % Sodium Chloride 250 ML 265 MG IV (20:42)
[2024-07-31] MEDS: Enoxaparin Sodium 40 MG/0.4 ML SYRINGE SUBCUT (20:50)
[2024-07-31 21:11] LABS: Glucose, Whole Blood 142 mg/dL (60-115)
[2024-07-31 23:23] VITALS: BP 107/59; PULSE 67; RESP 18; TEMP 36.6; O2SAT 94
[2024-08-01 03:27] VITALS: BP 136/66; PULSE 77; RESP 18; TEMP 36.6; O2SAT 92
[2024-08-01] MEDS: cefEPime HCl/D5W 2 GM/50 ML PIGGYBACK IV ×2 (03:56→17:03)
[2024-08-01 06:17] LABS: Estimated Glomerular Filt Rate > 60
[2024-08-01 07:11] VITALS: BP 144/75; PULSE 73; RESP 18; TEMP 36.7; O2SAT 94
[2024-08-01 07:19] LABS: Glucose, Whole Blood 117 mg/dL (60-115)
--- NOTE | 2024-08-01 07:32 | PM.PNGS ---
Subjective Subjective Date of Service: 08/01/24 <Srinath Chaney PA-C - Last Filed: 08/01/24 10:36> 08/01/24 <Anish Ellis MD - Last Filed: 08/01/24 12:21> Patient reports: no new complaints <POPPY Bradshaw Last Filed: 08/01/24 10:36> Interval history: Patient is doing well today, unchanged from yesterday. Denies pain, fever, chill. Patient expressed his desire to proceed with amputation <Srinath Chaney PA-C - Last Filed: 08/01/24 10:36> Physical Exam Vital Signs: Vital Signs: Last Vital Signs Temp 98.1 F 08/01/24 07:11 Pulse 73 08/01/24 07:11 Resp 18 08/01/24 07:11 BP 144/75 H 08/01/24 07:11 Pulse Ox 94 08/01/24 07:11 O2 Del Method Room Air 08/01/24 07:11 BMI result Body Mass Index 27.3 <Srinath Chaeny PA-C - Last Filed: 08/01/24 10:36> Extrem: Other: right 2nd toe 2x3 cm ulcer. Largely unchanged, some mild improvement in edema <POPPY Bradshaw Last Filed: 08/01/24 10:36> Objective Data Active Medications Acetaminophen (Acetaminophen 325 Mg Tablet) 650 mg PO Q6H PRN PRN Reason: Pain, Mild 1-3,fever,headache Amlodipine Besylate (Amlodipine Besylate 2.5 Mg Tablet) 2.5 mg PO DAILY [facility]; Protocol Last Admin: 07/31/24 07:47 Dose: 2.5 mg Documented By: ARNUFLO Calcium Carbonate (Calcium Carbonate 750 Mg Tab.Chew) 750 mg PO Q4H PRN PRN Reason: Heartburn Darunavir (Darunavir Ethanolate 600 Mg Tablet) 600 mg PO BID [facility] Last Admin: 07/31/24 20:42 Dose: 600 mg Documented By: KATHRINE Dextrose (Dextrose 50 % 25 Gm/50 Ml Syringe) 25 gm IVPUSH Q15M PRN; Protocol PRN Reason: per Hypoglycemia Standing Ord. Enoxaparin Sodium (Enoxaparin Sodium 40 Mg/0.4 Ml Syringe) 40 mg SUBCUT Q24H [facility] Last Admin: 07/31/24 20:50 Dose: 40 mg Documented By: KATHRINE Comments: requested early per pt Glipizide (Glipizide 5 Mg Tablet) 5 mg PO BIDWM [facility] Last Admin: 07/31/24 16:24 Dose: 5 mg Documented By: ARNULFO Glucose (Glucose Gel 15 Gm Gel..Gram.) 15 gm PO Q15M PRN; Protocol PRN Reason: per Hypoglycemia Standing Ord. Hydrochlorothiazide (Hydrochlorothiazide 12.5 Mg Tablet) 12.5 mg PO DAILY [facility]; Protocol Last Admin: 07/31/24 07:46 Dose: 12.5 mg Documented By: ARNULFO Cefepime HCl (Maxipime) 2 gm in 50 mls @ 100 mls/hr IV Q12H [facility] Last Infusion: 08/01/24 04:27 Dose: Infused Documented By: MARCO ANTONIO Vancomycin HCl 750 mg/ Sodium (Chloride) 265 mls @ 265 mls/hr IV Q12H [facility] Last Infusion: 07/31/24 21:42 Dose: Infused Documented By: KATHRINE Insulin Human Lispro (Insulin Lispro 100 Unit/Ml 3 Ml Vial) 0 unit SUBCUT QIDACHS [facility]; Protocol Last Admin: 08/01/24 07:31 Dose: Not Given Documented By: HADLEY Non-Admin Reason: No Insulin Coverage Lisinopril (Lisinopril 10 Mg Tablet) 10 mg PO DAILY [facility]; Protocol Last Admin: 07/31/24 07:47 Dose: 10 mg Documented By: ARNULFO Magnesium Hydroxide (Milk Of Magnesia 30 Ml Oral.Susp) 30 ml PO DAILY PRN PRN Reason: Constipation Melatonin (Melatonin 3 Mg Tablet) 6 mg PO BEDTIME PRN PRN Reason: Insomnia Non-Formulary Medication (Etravirine) 200 mg PO BID [facility] Pharmacy Consult (Consult Rx Vancomycin Dosing) 1 each MISCELLANE DAILY PRN PRN Reason: Consult order Raltegravir (Raltegravir Potassium 400 Mg Tablet) 400 mg PO BID [facility] Last Admin: 07/31/24 20:42 Dose: 400 mg Documented By: KATHRINE Sodium Chloride (0.9 % Sodium Chloride Flush 3 Ml Syringe) 3 ml IVFLUSH QSHIFT [facility] Last Admin: 07/31/24 21:18 Dose: 3 ml Documented By: KATHRINE <Srinath Chaney PA-C - Last Filed: 08/01/24 10:36> Labs CBC & Chem 7: 07/27/24 15:58 08/01/24 05:18 <Srinath Chaney PA-C - Last Filed: 08/01/24 10:36> Labs: Laboratory Results - last 24 hr 07/31/24 07/31/24 07/31/24 07:23 11:11 14:56 Hold Purple Top Estim Creat Clear Calc Estimated GFR POC Glucose 117 H 190 H Random Vancomycin 21.9 H 07/31/24 07/31/24 08/01/24 16:12 21:07 05:18 Hold Purple Top SEE NOTE Estim Creat Clear Calc 60.0 Estimated GFR > 60 POC Glucose 155 H 142 H Random Vancomycin 08/01/24 07:14 Hold Purple Top Estim Creat Clear Calc Estimated GFR POC Glucose 117 H Random Vancomycin <Srinath Chaney PA-C - Last Filed: 08/01/24 10:36> Procedures Date of Service Date of Service: 08/01/24 <Srinath Chaney PA-C - Last Filed: 08/01/24 10:36> 08/01/24 <Anish Ellis MD - Last Filed: 08/01/24 12:21> Progress Note: A&P Assessment and plan (1) Acute osteomyelitis of toe of right foot: Status: Acute <Srinath Chaney PA-C - Last Filed: 08/01/24 10:36> Assessment and Plan: The patient says he has a decided to proceed with amputation of the 2nd toe on the right I reviewed with the technique of amputation of the toe under anesthesia I explained the risks including but not limited to bleeding, infections, poor healing, as well as the benefits and alternatives He understands and wants to proceed We will put him on the schedule tomorrow <Anish Ellis MD - Last Filed: 08/01/24 12:21> Assessment and Plan: 74 year old male being followed for acute osteomyelitis of the right second toe. Patient is doing well today, no changes overnight. He expressed his desire to proceed with surgical intervention. Ulcer looks relatively unchanged this morning. Some mild improvement of edema. Dressing changed at bedside this morning. Patient will be scheduled for surgery tomorrow afternoon. Patient agreeable to plan. Daily dressing changes Continue antibiotics NPO after midnight <Srinath Chaney PA-C - Last Filed: 08/01/24 10:36> Time Spent With Patient Time: Total time managing care of this patient today __30__ minutes. <Srinath Chaney PA-C - Last Filed: 08/01/24 10:36> Quality Stroke Does the patient have a stroke diagnosis?: No <Srinath Chaney PA-C - Last Filed: 08/01/24 10:36> VTE Prior VTE?: No <Srinath Chaney PA-C - Last Filed: 08/01/24 10:36> VTE Risk Level:: Medical - moderate - high <Srinath Chaney PA-C - Last Filed: 08/01/24 10:36> VTE Device Contraindication: Treatment Not Indicated <Srinath Chaney PA-C - Last Filed: 08/01/24 10:36> VTE Drug Contraindication: N/A - Med Ordered <Srinath Chaney PA-C - Last Filed: 08/01/24 10:36>
[2024-08-01] MEDS: Raltegravir Potassium 400 MG TABLET PO ×2 (08:22→20:46)
[2024-08-01] MEDS: hydroCHLOROthiazide 12.5 MG TABLET PO (08:22)
[2024-08-01] MEDS: DARUNAVIR ETHANOLATE 600 MG PO ×2 (08:22→20:46)
[2024-08-01] MEDS: 0.9 % Sodium Chloride Flush 3 ML SYRINGE IVFLUSH ×3 (08:23→20:47)
[2024-08-01] MEDS: amLODIPine Besylate 2.5 MG TABLET PO (08:23)
[2024-08-01] MEDS: lisinopriL 10 MG TABLET PO (08:23)
[2024-08-01] MEDS: vancomycin HCL 750 MG in 0.9 % Sodium Chloride 250 ML 265 MG IV (08:23)
[2024-08-01] MEDS: glipiZIDE 5 MG TABLET PO ×2 (08:23→17:02)
--- NOTE | 2024-08-01 09:18 | HO.PM.IMPN ---
Subjective Subjective Date of Service: 08/01/24 Interval History: Follow up foot osteo, right tibial stenosis Review of Systems denies foot pain has mild erythema foot seems similar Review of Systems: Yes all other systems are reviewed and are negative Physical Exam Vital Signs: Vital Signs: Last Vital Signs Temp 98.1 F 08/01/24 07:11 Pulse 73 08/01/24 07:11 Resp 18 08/01/24 07:11 BP 144/75 H 08/01/24 07:11 Pulse Ox 94 08/01/24 07:11 O2 Del Method Room Air 08/01/24 07:11 BMI result Body Mass Index 27.3 Appearing in no acute distress lung sounds are clear to auscultation heart regular rate rhythm, clear S1, S2 positive bowel sounds, abdomen is soft, nontender neuro patient is alert x3, no focal deficits Objective Data Active Medications Acetaminophen (Acetaminophen 325 Mg Tablet) 650 mg PO Q6H PRN PRN Reason: Pain, Mild 1-3,fever,headache Amlodipine Besylate (Amlodipine Besylate 2.5 Mg Tablet) 2.5 mg PO DAILY [facility]; Protocol Last Admin: 08/01/24 08:23 Dose: 2.5 mg Documented By: HADLEY Calcium Carbonate (Calcium Carbonate 750 Mg Tab.Chew) 750 mg PO Q4H PRN PRN Reason: Heartburn Darunavir (Darunavir Ethanolate 600 Mg Tablet) 600 mg PO BID [facility] Last Admin: 08/01/24 08:22 Dose: 600 mg Documented By: HADLEY Dextrose (Dextrose 50 % 25 Gm/50 Ml Syringe) 25 gm IVPUSH Q15M PRN; Protocol PRN Reason: per Hypoglycemia Standing Ord. Enoxaparin Sodium (Enoxaparin Sodium 40 Mg/0.4 Ml Syringe) 40 mg SUBCUT Q24H [facility] Last Admin: 07/31/24 20:50 Dose: 40 mg Documented By: KATHRINE Comments: requested early per pt Glipizide (Glipizide 5 Mg Tablet) 5 mg PO BIDWM [facility] Last Admin: 08/01/24 08:23 Dose: 5 mg Documented By: HADLEY Glucose (Glucose Gel 15 Gm Gel..Gram.) 15 gm PO Q15M PRN; Protocol PRN Reason: per Hypoglycemia Standing Ord. Hydrochlorothiazide (Hydrochlorothiazide 12.5 Mg Tablet) 12.5 mg PO DAILY [facility]; Protocol Last Admin: 08/01/24 08:22 Dose: 12.5 mg Documented By: HADLEY Cefepime HCl (Maxipime) 2 gm in 50 mls @ 100 mls/hr IV Q12H [facility] Last Infusion: 08/01/24 04:27 Dose: Infused Documented By: MARCO ANTONIO Vancomycin HCl 750 mg/ Sodium (Chloride) 265 mls @ 265 mls/hr IV Q12H [facility] Last Admin: 08/01/24 08:23 Dose: 265 mls/hr Documented By: HADLEY Insulin Human Lispro (Insulin Lispro 100 Unit/Ml 3 Ml Vial) 0 unit SUBCUT QIDACHS [facility]; Protocol Last Admin: 08/01/24 07:31 Dose: Not Given Documented By: HADLEY Non-Admin Reason: No Insulin Coverage Lisinopril (Lisinopril 10 Mg Tablet) 10 mg PO DAILY [facility]; Protocol Last Admin: 08/01/24 08:23 Dose: 10 mg Documented By: HADLEY Magnesium Hydroxide (Milk Of Magnesia 30 Ml Oral.Susp) 30 ml PO DAILY PRN PRN Reason: Constipation Melatonin (Melatonin 3 Mg Tablet) 6 mg PO BEDTIME PRN PRN Reason: Insomnia Non-Formulary Medication (Etravirine) 200 mg PO BID [facility] Pharmacy Consult (Consult Rx Vancomycin Dosing) 1 each MISCELLANE DAILY PRN PRN Reason: Consult order Raltegravir (Raltegravir Potassium 400 Mg Tablet) 400 mg PO BID [facility] Last Admin: 08/01/24 08:22 Dose: 400 mg Documented By: HADLEY Sodium Chloride (0.9 % Sodium Chloride Flush 3 Ml Syringe) 3 ml IVFLUSH QSHIFT [facility] Last Admin: 08/01/24 08:23 Dose: 3 ml Documented By: HADLEY Labs 07/27/24 15:58 08/01/24 05:18 Labs: Laboratory Results - last 24 hr 07/31/24 07/31/24 07/31/24 11:11 14:56 16:12 Hold Purple Top Estim Creat Clear Calc Estimated GFR POC Glucose 190 H 155 H Random Vancomycin 21.9 H 07/31/24 08/01/24 08/01/24 21:07 05:18 07:14 Hold Purple Top SEE NOTE Estim Creat Clear Calc 60.0 Estimated GFR > 60 POC Glucose 142 H 117 H Random Vancomycin Assessment and Plan (1) Acute osteomyelitis of toe of right foot: Status: Acute Assessment and Plan: 74-year-old male with a PMH significant for HIV and HTN?who presents to the ED for evaluation of worsening right toe wound. Pt admitted to the hospital for treatment and further evaluation of right 2nd toe osteomyelitis in the setting of new onset diabetes. Acute osteomyelitis of 2nd digit on right foot In the setting of undiagnosed/new onset diabetes Pt with worsening right foot for the past 3-4 days X-ray of right foot suggestive of osteomyelitis Right Le Doppler with No significant outflow stenosis. 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 continue vancomycin and cefepime, started 07/27/2024 Dry dressings daily for the foot and wrapped with Chen roll to keep clean General surgery consult noted-s/p bluntly debrided this and cleaned the area with normal saline. Plan for amputation tomorrow, NPO after midnight New onset type 2 diabetes with hyperglycemia A1c 9.2 patient prefers po meds>adjusted glipizide 5mg po bid ss, Diabetic diet, diabetic counseling Acute lactic acidosis Initial lactic acid 2.6 with repeat 2.2 with hydration Not secondary to sepsis no need to trend further lactic acid . HTN uncontrolled on hctz, lisinopril adjusted 10 mg qd and amlodipine 2.5 mg qd. HIV Continue home meds Check CD4 levels as pt has not followed with PCP in some years OLIVER arellano Full Code, verified with pt DVT Prophylaxis: Lovenox Quality Stroke Does the patient have a stroke diagnosis?: No VTE Prior VTE?: No VTE Risk Level:: Medical - moderate - high VTE Device Contraindication: Treatment Not Indicated VTE Drug Contraindication: N/A - Med Ordered
[2024-08-01 11:18] LABS: Glucose, Whole Blood 202 mg/dL (60-115)
[2024-08-01 11:52] VITALS: BP 172/86; PULSE 72; RESP 18; TEMP 36.4; O2SAT 97
--- NOTE | 2024-08-01 12:03 | HO.WOUND ---
Wound Consult: Initial 74yr old?male admitted to [facility] [place] on 07/27/24 - See progress notes and H&P for detailed history.? Wound consult placed for Right 2nd Toe wound.? Chart review completed - plan is for patient to go to OR tomorrow with general surgery team for amputation. Will defer topical recommendations to Surgery team after surgery. Currently may cover with dry dressing pending amputation. Defer to general surgery for topical orders.
[2024-08-01] MEDS: Insulin Lispro 100 UNIT/ML 3 ML VIAL SUBCUT ×2 (12:14→20:47)
--- NOTE | 2024-08-01 13:20 | MHC.CM.PN ---
Per MD rounds patient is scheduled for Toe amp in O.R. tomorrow, 08/02/24. PT eval will be ordered after the surgical intervention. Patient with Osteo may require IV ABX. Referrals to SNF have been sent to area facilities contracted with [facility]. DP pending AMP and PT eval. STR via BLS vs Home with services.
[2024-08-01 15:44] VITALS: BP 116/65; PULSE 83; RESP 14; TEMP 36.8; O2SAT 97
[2024-08-01 16:10] LABS: Glucose, Whole Blood 124 mg/dL (60-115)
--- NOTE | 2024-08-01 17:06 | W.PM.IDCN ---
History of Present Illness Data of Consult Service Date: 07/30/24 Requesting physician: Mumtaz Waterman Primary Care Provider: Unknown Physician HPI Reason for consult: foot infection,HIV He presents with right foot redness and swelling for a week. He has no fever but some chills. He has no bacteremia so far. He sees Dr Alfred Wright and takes Etravirine 200 mg bid,Isentress 400 bid,RTV 100 mg bid and Darunavir 600 mg bid [place] I [place] [facility] He has had controlled virus with occasional low level viremia reported. Review of Systems Review of Systems: Yes all other systems are reviewed and are negative PMFSH Past Medical History Medical History (Updated 08/01/24 @ 17:19 by Mendy Navarrete MD) HIV (human immunodeficiency virus infection) HTN (hypertension) Family History Family history: reviewed and not pertinent Social History Social History Household Members: None Housing: Apartment Do you presently have visiting nurse or other home services: No Comment: pt steady on feet, refusing all alarms Patient Tobacco Use Status: Never used Tobacco Smoked in Last 30 Days: No Use of substances other than those prescribed or required for medical reasons: No Currently Displaying Signs/Symptoms of Drug Intoxication Withdrawal: No Have you been hit, kicked, punched, or otherwise hurt by someone within the past year? If so, by whom?: No Are you made to feel afraid or neglected: No Advance Directives: No Advance Directives Information Provided: Yes Do you have a plan to hurt others: No Plan Recently lost weight without trying: No How much weight loss: Not applicable Eating poorly because of decreased appetite: No Nutrition screen score: 0 Nutrition Risks: No Nutritional Risk service: No Meds Allergies Allergy/AdvReac Type Severity Reaction Status Date / Time No Known Allergies Allergy Verified 07/27/24 15:35 Active Medications: Current Medications Acetaminophen (Acetaminophen 325 Mg Tablet) 650 mg PO Q6H PRN PRN Reason: Pain, Mild 1-3,fever,headache Amlodipine Besylate (Amlodipine Besylate 2.5 Mg Tablet) 2.5 mg PO DAILY [facility]; Protocol Last Admin: 08/01/24 08:23 Dose: 2.5 mg Calcium Carbonate (Calcium Carbonate 750 Mg Tab.Chew) 750 mg PO Q4H PRN PRN Reason: Heartburn Darunavir (Darunavir Ethanolate 600 Mg Tablet) 600 mg PO BID [facility] Last Admin: 08/01/24 08:22 Dose: 600 mg Dextrose (Dextrose 50 % 25 Gm/50 Ml Syringe) 25 gm IVPUSH Q15M PRN; Protocol PRN Reason: per Hypoglycemia Standing Ord. Enoxaparin Sodium (Enoxaparin Sodium 40 Mg/0.4 Ml Syringe) 40 mg SUBCUT Q24H [facility] Last Admin: 07/31/24 20:50 Dose: 40 mg Glipizide (Glipizide 5 Mg Tablet) 5 mg PO BIDWM [facility] Last Admin: 08/01/24 17:02 Dose: 5 mg Glucose (Glucose Gel 15 Gm Gel..Gram.) 15 gm PO Q15M PRN; Protocol PRN Reason: per Hypoglycemia Standing Ord. Hydrochlorothiazide (Hydrochlorothiazide 12.5 Mg Tablet) 12.5 mg PO DAILY [facility]; Protocol Last Admin: 08/01/24 08:22 Dose: 12.5 mg Cefepime HCl (Maxipime) 2 gm in 50 mls @ 100 mls/hr IV Q12H [facility] Last Admin: 08/01/24 17:03 Dose: 100 mls/hr Vancomycin HCl 750 mg/ Sodium (Chloride) 265 mls @ 265 mls/hr IV Q12H [facility] Last Infusion: 08/01/24 10:16 Dose: Infused Insulin Human Lispro (Insulin Lispro 100 Unit/Ml 3 Ml Vial) 0 unit SUBCUT QIDACHS [facility]; Protocol Last Admin: 08/01/24 16:44 Dose: Not Given Lisinopril (Lisinopril 10 Mg Tablet) 10 mg PO DAILY [facility]; Protocol Last Admin: 08/01/24 08:23 Dose: 10 mg Magnesium Hydroxide (Milk Of Magnesia 30 Ml Oral.Susp) 30 ml PO DAILY PRN PRN Reason: Constipation Melatonin (Melatonin 3 Mg Tablet) 6 mg PO BEDTIME PRN PRN Reason: Insomnia Non-Formulary Medication (Etravirine) 200 mg PO BID [facility] Pharmacy Consult (Consult Rx Vancomycin Dosing) 1 each MISCELLANE DAILY PRN PRN Reason: Consult order Raltegravir (Raltegravir Potassium 400 Mg Tablet) 400 mg PO BID [facility] Last Admin: 08/01/24 08:22 Dose: 400 mg Sodium Chloride (0.9 % Sodium Chloride Flush 3 Ml Syringe) 3 ml IVFLUSH QSHIFT [facility] Last Admin: 08/01/24 17:02 Dose: 3 ml Home Medications ?Medication ?Instructions ?Recorded ?Confirmed ?Last Taken ?Type darunavir 600 mg tablet 600 mg PO BID 07/27/24 07/27/24 07/27/24 History etravirine 200 mg tablet 200 mg PO BID 07/27/24 07/27/24 07/27/24 History hydrochlorothiazide 12.5 mg tablet 12.5 mg PO DAILY 07/27/24 07/27/24 07/27/24 History lisinopril 10 mg tablet 10 mg PO DAILY 07/27/24 07/27/24 07/27/24 History raltegravir 400 mg tablet 400 mg PO BID 07/27/24 07/27/24 07/27/24 History (Isentress) Physical Exam Vital Signs: Vital Signs: Last Vital Signs Temp 98.2 F 08/01/24 15:44 Pulse 83 08/01/24 15:44 Resp 14 08/01/24 15:44 BP 116/65 08/01/24 15:44 Pulse Ox 97 08/01/24 15:44 O2 Del Method Room Air 08/01/24 15:44 BMI result Body Mass Index 27.3 Const: General: cooperative HEENT: Head: Yes normal to inspection Face and sinus: Yes normal facial exam Mouth: Normal oral and palatal mucosa present Teeth and gingiva: dentition normal Eyes: General: appearance normal, both eyes and all related structures Pupils: Equal, round and reactive pupils present Resp: Effort & Inspection: normal respiratory effort Cardio: Rate: regular rate Rhythm: regular rhythm GI: Palpation (GI): Soft to palpation and nontender : General: Yes no CVA tenderness Back/Spine/Pelvis: Back: no CVA tenderness Skin: General skin exam: no rashes or lesions noted Neuro: General: moves all extremities Cranial nerves: Yes Equal, round and reactive pupils present Extrem: Other: reddened right second toe General: Yes normal to inspection Psych: Appearance: grossly normal Results Labs 07/27/24 15:58 08/01/24 05:18 Labs: BMP 08/01/24 05:18 Creatinine 1.08 Microbiology Microbiology Results: Microbiology 07/27/24 15:58 Blood - Venous Blood Culture - Preliminary No growth after 48 hours. 07/27/24 15:58 Blood - Venous Blood Culture - Preliminary No growth after 48 hours. Assessment and Plan (1) Acute osteomyelitis of toe of right foot: Status: Acute (2) HIV (human immunodeficiency virus infection): Status: Acute Plan He has right second toe OM,middle and distal. He has HIV well controlled Would continue HIV regimen with medication from home. Probable Ertapenem and Vancomycin for six weeks with [place] [facility] [place] weekly creatinine and Vancomycin troughs.
[2024-08-01 18:19] LABS: Vancomycin Random 20.4 mcg/mL (15-20)
[2024-08-01 19:15] VITALS: BP 121/70; PULSE 86; RESP 18; TEMP 36.7; O2SAT 95
[2024-08-01 20:25] LABS: Glucose, Whole Blood 156 mg/dL (60-115)
[2024-08-01] MEDS: vancomycin HCL 500 MG in 0.9 % Sodium Chloride 100 ML 110 MG IV (20:45)
[2024-08-01 23:27] VITALS: BP 134/79; PULSE 76; RESP 16; TEMP 36.3; O2SAT 96
[2024-08-02] VITALS (11 sets, daily range): BP systolic 109–156; BP diastolic 62–99; PULSE 71–103; RESP 16–18; TEMP 36–36.6; O2SAT 93–100
[2024-08-02] MEDS: cefEPime HCl/D5W 2 GM/50 ML PIGGYBACK IV ×2 (03:27→18:16)
[2024-08-02 06:03] LABS: Creatinine Clr Calc Pharmacy 62.9; Estimated Glomerular Filt Rate > 60
[2024-08-02 07:34] LABS: Glucose, Whole Blood 104 mg/dL (60-115)
[2024-08-02] MEDS: vancomycin HCL 500 MG in 0.9 % Sodium Chloride 100 ML 110 MG IV (07:49)
[2024-08-02] MEDS: DARUNAVIR ETHANOLATE 600 MG PO ×2 (07:49→20:43)
[2024-08-02] MEDS: hydroCHLOROthiazide 12.5 MG TABLET PO (07:49)
[2024-08-02] MEDS: lisinopriL 10 MG TABLET PO (07:49)
[2024-08-02] MEDS: amLODIPine Besylate 2.5 MG TABLET PO (07:49)
[2024-08-02] MEDS: Raltegravir Potassium 400 MG TABLET PO ×2 (07:49→20:43)
[2024-08-02] MEDS: 0.9 % Sodium Chloride Flush 3 ML SYRINGE IVFLUSH ×3 (07:50→20:44)
--- NOTE | 2024-08-02 08:29 | P.PNGS_ITS ---
Subjective Subjective Date of Service: 08/02/24 <Srinath Chaney PA-C - Last Filed: 08/02/24 10:55> 08/03/24 <Anish Ellis MD - Last Filed: 08/03/24 09:25> Patient reports: no new complaints <POPPY Bradshaw Last Filed: 08/02/24 10:55> Interval history: Patient doing well today, no changes overnight. Denies pain, fever/chills. Denies eating anything after dinner last night. <Srinath Chaney PA-C - Last Filed: 08/02/24 10:55> Physical Exam 2 Vital Signs: Vital Signs: Last Vital Signs Temp 97.4 F 08/02/24 07:30 Pulse 77 08/02/24 07:30 Resp 18 08/02/24 07:30 BP 139/83 08/02/24 07:30 Pulse Ox 95 08/02/24 07:30 O2 Del Method Room Air 08/02/24 07:30 BMI result Body Mass Index 27.3 <Srinath Chaney PA-C - Last Filed: 08/02/24 10:55> Const: General: comfortable and no acute distress <Srinath Chaney PA-C - Last Filed: 08/02/24 10:55> Orientation/consciousness: patient oriented x3 <POPPY Bradshaw Last Filed: 08/02/24 10:55> Resp: Effort & Inspection: normal respiratory effort and able to speak in complete sentences <Srinath Chaney PA-C - Last Filed: 08/02/24 10:55> Neuro: General: patient oriented x3 <POPPY Bradshaw Last Filed: 08/02/24 10:55> Objective Data Active Medications Acetaminophen (Acetaminophen 325 Mg Tablet) 650 mg PO Q6H PRN PRN Reason: Pain, Mild 1-3,fever,headache Amlodipine Besylate (Amlodipine Besylate 2.5 Mg Tablet) 2.5 mg PO DAILY [facility]; Protocol Last Admin: 08/02/24 07:49 Dose: 2.5 mg Documented By: KHURRAM Calcium Carbonate (Calcium Carbonate 750 Mg Tab.Chew) 750 mg PO Q4H PRN PRN Reason: Heartburn Darunavir (Darunavir Ethanolate 600 Mg Tablet) 600 mg PO BID [facility] Last Admin: 08/02/24 07:49 Dose: 600 mg Documented By: KHURRAM Dextrose (Dextrose 50 % 25 Gm/50 Ml Syringe) 25 gm IVPUSH Q15M PRN; Protocol PRN Reason: per Hypoglycemia Standing Ord. Enoxaparin Sodium (Enoxaparin Sodium 40 Mg/0.4 Ml Syringe) 40 mg SUBCUT Q24H [facility] Last Admin: 08/01/24 20:46 Dose: Not Given Documented By: BIENVENIDO Non-Admin Reason: Patient Refused Glipizide (Glipizide 5 Mg Tablet) 5 mg PO BIDWM [facility] Last Admin: 08/01/24 17:02 Dose: 5 mg Documented By: BROKristen Glucose (Glucose Gel 15 Gm Gel..Gram.) 15 gm PO Q15M PRN; Protocol PRN Reason: per Hypoglycemia Standing Ord. Hydrochlorothiazide (Hydrochlorothiazide 12.5 Mg Tablet) 12.5 mg PO DAILY [facility]; Protocol Last Admin: 08/02/24 07:49 Dose: 12.5 mg Documented By: KHURRAM Cefepime HCl (Maxipime) 2 gm in 50 mls @ 100 mls/hr IV Q12H [facility] Last Infusion: 08/02/24 03:58 Dose: Infused Documented By: BIENVENIDO Vancomycin HCl 500 mg/ Sodium (Chloride) 110 mls @ 110 mls/hr IV Q12H [facility] Last Admin: 08/02/24 07:49 Dose: 110 mls/hr Documented By: KHURRAM Insulin Human Lispro (Insulin Lispro 100 Unit/Ml 3 Ml Vial) 0 unit SUBCUT QIDACHS [facility]; Protocol Last Admin: 08/02/24 07:43 Dose: Not Given Documented By: KHURRAM Non-Admin Reason: No Insulin Coverage Lisinopril (Lisinopril 10 Mg Tablet) 10 mg PO DAILY [facility]; Protocol Last Admin: 08/02/24 07:49 Dose: 10 mg Documented By: KHURRAM Magnesium Hydroxide (Milk Of Magnesia 30 Ml Oral.Susp) 30 ml PO DAILY PRN PRN Reason: Constipation Melatonin (Melatonin 3 Mg Tablet) 6 mg PO BEDTIME PRN PRN Reason: Insomnia Non-Formulary Medication (Etravirine) 200 mg PO BID [facility] Pharmacy Consult (Consult Rx Vancomycin Dosing) 1 each MISCELLANE DAILY PRN PRN Reason: Consult order Raltegravir (Raltegravir Potassium 400 Mg Tablet) 400 mg PO BID [facility] Last Admin: 08/02/24 07:49 Dose: 400 mg Documented By: KHURRAM Sodium Chloride (0.9 % Sodium Chloride Flush 3 Ml Syringe) 3 ml IVFLUSH QSHIFT [facility] Last Admin: 08/02/24 07:50 Dose: 3 ml Documented By: KHURRAM <Srinath Chaney PA-C - Last Filed: 08/02/24 10:55> Labs CBC & Chem 7: 08/03/24 05:55 08/03/24 05:55 <Srinath Chaney PA-C - Last Filed: 08/02/24 10:55> Labs: Laboratory Results - last 24 hr 08/01/24 08/01/24 08/01/24 11:14 15:58 17:56 Hold Purple Top Estim Creat Clear Calc Estimated GFR POC Glucose 202 H 124 H Random Vancomycin 20.4 H 08/01/24 08/02/24 08/02/24 20:19 05:17 07:06 Hold Purple Top SEE NOTE Estim Creat Clear Calc 62.9 Estimated GFR > 60 POC Glucose 156 H 104 Random Vancomycin <Srinath Chaney PA-C - Last Filed: 08/02/24 10:55> Microbiology Microbiology Results: Microbiology 07/27/24 15:58 Blood Culture - Final Blood - Venous No growth after 5 days. 07/27/24 15:58 Blood Culture - Final Blood - Venous No growth after 5 days. <Srinath Chaney PA-C - Last Filed: 08/02/24 10:55> Procedures Date of Service Date of Service: 08/02/24 <Srinath Chaney PA-C - Last Filed: 08/02/24 10:55> 08/03/24 <Anish Ellis MD - Last Filed: 08/03/24 09:25> Progress Note: A&P Assessment and plan (1) Acute osteomyelitis of toe of right foot: Status: Acute <Srinath Chaney PA-C - Last Filed: 08/02/24 10:55> Assessment and Plan: Seen and examined independently <Anish Ellis MD - Last Filed: 08/03/24 09:25> Assessment and Plan: 74-year-old male being followed for acute osteomyelitis of the right 2nd toe. Patient continues to do well. Patient's continues to agree to plan for amputation this afternoon. He denies pain, swelling, fever/chills. Exam unchanged from previous, dressing left in place until time of operation. Remains on IV antibiotics. Patient has been NPO since midnight Right 2nd toe amputation scheduled for 14:00 Continue IV antibiotics <Srinath Chaney PA-C - Last Filed: 08/02/24 10:55> Time Spent With Patient Time: Total time managing care of this patient today ____ minutes. <Srinath Chaney PA-C - Last Filed: 08/02/24 10:55> Quality Stroke Does the patient have a stroke diagnosis?: No <Srinath Chaney PA-C - Last Filed: 08/02/24 10:55> VTE Prior VTE?: No <Srinath Chaney PA-C - Last Filed: 08/02/24 10:55> VTE Risk Level:: Medical - moderate - high <Srinath Chaney PA-C - Last Filed: 08/02/24 10:55> VTE Device Contraindication: Treatment Not Indicated <Srinath Chaney PA-C - Last Filed: 08/02/24 10:55> VTE Drug Contraindication: N/A - Med Ordered <Srinath Chaney PA-C - Last Filed: 08/02/24 10:55>
[2024-08-02 11:29] LABS: Glucose, Whole Blood 152 mg/dL (60-115)
--- NOTE | 2024-08-02 13:37 | HO.ANESPROP2 ---
HPI - Anesthesia Eval Consult details Narrative: toe amp PMFSH Active Problems Active Problems: All Active Problems Acute osteomyelitis of toe of right foot (Acute) HIV (human immunodeficiency virus infection) (Acute) Past Medical History Medical History HIV (human immunodeficiency virus infection) HTN (hypertension) Family History Family history of problems with anesthesia: No Surgical History Surgical History Hx of tonsillectomy History of Problems with Anesthesia: No Social History Social History Household Members: None Housing: Apartment Do you presently have visiting nurse or other home services: No Comment: pt steady on feet, refusing all alarms Patient Tobacco Use Status: Never used Tobacco Smoked in Last 30 Days: No Use of substances other than those prescribed or required for medical reasons: No Currently Displaying Signs/Symptoms of Drug Intoxication Withdrawal: No Have you been hit, kicked, punched, or otherwise hurt by someone within the past year? If so, by whom?: No Are you made to feel afraid or neglected: No Are you DNR?: No Advance Directives: No Advance Directives Information Provided: Yes Do you have a plan to hurt others: No Plan Recently lost weight without trying: No How much weight loss: Not applicable Eating poorly because of decreased appetite: No Nutrition screen score: 0 Nutrition Risks: No Nutritional Risk Poor oral hygiene: No service: No Meds Allergies Allergy/AdvReac Type Severity Reaction Status Date / Time No Known Allergies Allergy Verified 07/27/24 15:35 Active Medications: Current Medications Acetaminophen (Acetaminophen 325 Mg Tablet) 650 mg PO Q6H PRN PRN Reason: Pain, Mild 1-3,fever,headache Amlodipine Besylate (Amlodipine Besylate 2.5 Mg Tablet) 2.5 mg PO DAILY [facility]; Protocol Last Admin: 08/02/24 07:49 Dose: 2.5 mg Calcium Carbonate (Calcium Carbonate 750 Mg Tab.Chew) 750 mg PO Q4H PRN PRN Reason: Heartburn Darunavir (Darunavir Ethanolate 600 Mg Tablet) 600 mg PO BID ORACIO Last Admin: 08/02/24 07:49 Dose: 600 mg Dextrose (Dextrose 50 % 25 Gm/50 Ml Syringe) 25 gm IVPUSH Q15M PRN; Protocol PRN Reason: per Hypoglycemia Standing Ord. Enoxaparin Sodium (Enoxaparin Sodium 40 Mg/0.4 Ml Syringe) 40 mg SUBCUT Q24H [facility] Last Admin: 08/01/24 20:46 Dose: Not Given Glipizide (Glipizide 5 Mg Tablet) 5 mg PO BIDWM [facility] Last Admin: 08/01/24 17:02 Dose: 5 mg Glucose (Glucose Gel 15 Gm Gel..Gram.) 15 gm PO Q15M PRN; Protocol PRN Reason: per Hypoglycemia Standing Ord. Hydrochlorothiazide (Hydrochlorothiazide 12.5 Mg Tablet) 12.5 mg PO DAILY [facility]; Protocol Last Admin: 08/02/24 07:49 Dose: 12.5 mg Cefepime HCl (Maxipime) 2 gm in 50 mls @ 100 mls/hr IV Q12H [facility] Last Infusion: 08/02/24 03:58 Dose: Infused Vancomycin HCl 500 mg/ Sodium (Chloride) 110 mls @ 110 mls/hr IV Q12H [facility] Last Infusion: 08/02/24 09:11 Dose: Infused Insulin Human Lispro (Insulin Lispro 100 Unit/Ml 3 Ml Vial) 0 unit SUBCUT QIDACHS [facility]; Protocol Last Admin: 08/02/24 11:48 Dose: Not Given Lisinopril (Lisinopril 10 Mg Tablet) 10 mg PO DAILY [facility]; Protocol Last Admin: 08/02/24 07:49 Dose: 10 mg Magnesium Hydroxide (Milk Of Magnesia 30 Ml Oral.Susp) 30 ml PO DAILY PRN PRN Reason: Constipation Melatonin (Melatonin 3 Mg Tablet) 6 mg PO BEDTIME PRN PRN Reason: Insomnia Pharmacy Consult (Consult Rx Vancomycin Dosing) 1 each MISCELLANE DAILY PRN PRN Reason: Consult order Raltegravir (Raltegravir Potassium 400 Mg Tablet) 400 mg PO BID [facility] Last Admin: 08/02/24 07:49 Dose: 400 mg Sodium Chloride (0.9 % Sodium Chloride Flush 3 Ml Syringe) 3 ml IVFLUSH QSHIFT [facility] Last Admin: 08/02/24 07:50 Dose: 3 ml Home Medications ?Medication ?Instructions ?Recorded ?Confirmed ?Last Taken ?Type darunavir 600 mg tablet 600 mg PO BID 07/27/24 07/27/24 07/27/24 History etravirine 200 mg tablet 200 mg PO BID 07/27/24 07/27/24 07/27/24 History hydrochlorothiazide 12.5 mg tablet 12.5 mg PO DAILY 07/27/24 07/27/24 07/27/24 History lisinopril 10 mg tablet 10 mg PO DAILY 07/27/24 07/27/24 07/27/24 History raltegravir 400 mg tablet 400 mg PO BID 07/27/24 07/27/24 07/27/24 History ([place]) Exam Height,Weight and Vital Signs: Height 5 ft 10 in Weight 86.183 kg Last Vital Signs Temp 96.8 F 08/02/24 12:00 Pulse 75 08/02/24 12:00 Resp 16 08/02/24 12:00 BP 152/80 H 08/02/24 12:00 Pulse Ox 96 08/02/24 12:00 O2 Del Method Room Air 08/02/24 12:00 Pertinent Lab Results Pertinent Lab Results: Laboratory Tests 07/27/24 07/27/24 07/27/24 15:58 18:29 22:36 WBC 8.8 RBC 4.67 Hgb 13.9 L Hct 40.2 L MCV 86.1 MCH 29.8 MCHC 34.6 RDW 12.2 Plt Count 315 MPV 9.8 Immature Gran % (Auto) 0.5 H Neut % (Auto) 61.2 Lymph % (Auto) 27.2 [place] % (Auto) 9.0 Eos % (Auto) 1.6 Baso % (Auto) 0.5 Lymph # (Auto) 2.4 [place] # (Auto) 0.8 Eos # (Auto) 0.1 Baso # (Auto) 0.0 Abs Immat Gran (auto) 0.04 H Absolute Neuts (auto) 5.4 Absolute Nucleated RBC 0.000 Nucleated RBC % (auto) 0.0 ESR 54 H Hold Purple Top Hold Blue Top SEE NOTE Sodium 139 Potassium 4.0 Chloride 104 Carbon Dioxide 24 Anion Gap 15 BUN 17 H Creatinine 1.15 Estim Creat Clear Calc 56.4 Estimated GFR > 60 POC Glucose 125 H Random Glucose 351 H* Estimat Average Glucose 217 Hemoglobin A1c % 9.2 H Lactic Acid 2.6 H* Lactic Acid F/U @ 2Hr 2.2 H* Calcium 9.1 Total Bilirubin 0.3 AST 21 ALT 15 Alkaline Phosphatase 75 C-Reactive Protein 1.41 H Total Protein 7.4 Albumin 3.6 Random Vancomycin 07/28/24 07/28/24 07/28/24 06:57 07:08 11:06 WBC RBC Hgb Hct MCV MCH MCHC RDW Plt Count MPV Immature Gran % (Auto) Neut % (Auto) Lymph % (Auto) [place] % (Auto) Eos % (Auto) Baso % (Auto) Lymph # (Auto) [place] # (Auto) Eos # (Auto) Baso # (Auto) Abs Immat Gran (auto) Absolute Neuts (auto) Absolute Nucleated RBC Nucleated RBC % (auto) ESR Hold Purple Top SEE NOTE Hold Blue Top Sodium 138 Potassium 3.6 Chloride 104 Carbon Dioxide 25 Anion Gap 13 BUN 10 Creatinine 0.81 Estim Creat Clear Calc 80.1 Estimated GFR > 60 POC Glucose 173 H 256 H Random Glucose 150 H Estimat Average Glucose Hemoglobin A1c % Lactic Acid Lactic Acid F/U @ 2Hr Calcium 8.8 Total Bilirubin AST ALT Alkaline Phosphatase C-Reactive Protein Total Protein Albumin Random Vancomycin 07/28/24 07/28/24 07/29/24 15:37 20:32 05:40 WBC RBC Hgb Hct MCV MCH MCHC RDW Plt Count MPV Immature Gran % (Auto) Neut % (Auto) Lymph % (Auto) [place] % (Auto) Eos % (Auto) Baso % (Auto) Lymph # (Auto) [place] # (Auto) Eos # (Auto) Baso # (Auto) Abs Immat Gran (auto) Absolute Neuts (auto) Absolute Nucleated RBC Nucleated RBC % (auto) ESR Hold Purple Top SEE NOTE Hold Blue Top Sodium Potassium Chloride Carbon Dioxide Anion Gap BUN Creatinine 0.94 Estim Creat Clear Calc 69.0 Estimated GFR > 60 POC Glucose 112 152 H Random Glucose Estimat Average Glucose Hemoglobin A1c % Lactic Acid Lactic Acid F/U @ 2Hr Calcium Total Bilirubin AST ALT Alkaline Phosphatase C-Reactive Protein Total Protein Albumin Random Vancomycin 07/29/24 07/29/24 07/29/24 07:09 11:21 14:47 WBC RBC Hgb Hct MCV MCH MCHC RDW Plt Count MPV Immature Gran % (Auto) Neut % (Auto) Lymph % (Auto) [place] % (Auto) Eos % (Auto) Baso % (Auto) Lymph # (Auto) [place] # (Auto) Eos # (Auto) Baso # (Auto) Abs Immat Gran (auto) Absolute Neuts (auto) Absolute Nucleated RBC Nucleated RBC % (auto) ESR Hold Purple Top Hold Blue Top Sodium Potassium Chloride Carbon Dioxide Anion Gap BUN Creatinine Estim Creat Clear Calc Estimated GFR POC Glucose 140 H 253 H Random Glucose Estimat Average Glucose Hemoglobin A1c % Lactic Acid Lactic Acid F/U @ 2Hr Calcium Total Bilirubin AST ALT Alkaline Phosphatase C-Reactive Protein Total Protein Albumin Random Vancomycin 9.1 L 07/29/24 07/29/24 07/30/24 16:47 19:20 06:04 WBC RBC Hgb Hct MCV MCH MCHC RDW Plt Count MPV Immature Gran % (Auto) Neut % (Auto) Lymph % (Auto) [place] % (Auto) Eos % (Auto) Baso % (Auto) Lymph # (Auto) [place] # (Auto) Eos # (Auto) Baso # (Auto) Abs Immat Gran (auto) Absolute Neuts (auto) Absolute Nucleated RBC Nucleated RBC % (auto) ESR Hold Purple Top SEE NOTE Hold Blue Top Sodium Potassium Chloride Carbon Dioxide Anion Gap BUN Creatinine 1.03 Estim Creat Clear Calc 62.9 Estimated GFR > 60 POC Glucose 171 H 183 H Random Glucose Estimat Average Glucose Hemoglobin A1c % Lactic Acid Lactic Acid F/U @ 2Hr Calcium Total Bilirubin AST ALT Alkaline Phosphatase C-Reactive Protein Total Protein Albumin Random Vancomycin 07/30/24 07/30/24 07/30/24 07:03 11:18 12:50 WBC RBC Hgb Hct MCV MCH MCHC RDW Plt Count MPV Immature Gran % (Auto) Neut % (Auto) Lymph % (Auto) [place] % (Auto) Eos % (Auto) Baso % (Auto) Lymph # (Auto) [place] # (Auto) Eos # (Auto) Baso # (Auto) Abs Immat Gran (auto) Absolute Neuts (auto) Absolute Nucleated RBC Nucleated RBC % (auto) ESR Hold Purple Top Hold Blue Top Sodium Potassium Chloride Carbon Dioxide Anion Gap BUN Creatinine Estim Creat Clear Calc Estimated GFR POC Glucose 145 H 199 H Random Glucose Estimat Average Glucose Hemoglobin A1c % Lactic Acid Lactic Acid F/U @ 2Hr Calcium Total Bilirubin AST ALT Alkaline Phosphatase C-Reactive Protein Total Protein Albumin Random Vancomycin 18.5 07/30/24 07/30/24 07/31/24 16:05 20:26 05:55 WBC RBC Hgb Hct MCV MCH MCHC RDW Plt Count MPV Immature Gran % (Auto) Neut % (Auto) Lymph % (Auto) [place] % (Auto) Eos % (Auto) Baso % (Auto) Lymph # (Auto) [place] # (Auto) Eos # (Auto) Baso # (Auto) Abs Immat Gran (auto) Absolute Neuts (auto) Absolute Nucleated RBC Nucleated RBC % (auto) ESR Hold Purple Top SEE NOTE Hold Blue Top Sodium Potassium Chloride Carbon Dioxide Anion Gap BUN Creatinine 1.07 Estim Creat Clear Calc 60.6 Estimated GFR > 60 POC Glucose 156 H 139 H Random Glucose Estimat Average Glucose Hemoglobin A1c % Lactic Acid Lactic Acid F/U @ 2Hr Calcium Total Bilirubin AST ALT Alkaline Phosphatase C-Reactive Protein Total Protein Albumin Random Vancomycin 07/31/24 07/31/24 07/31/24 07:23 11:11 14:56 WBC RBC Hgb Hct MCV MCH MCHC RDW Plt Count MPV Immature Gran % (Auto) Neut % (Auto) Lymph % (Auto) [place] % (Auto) Eos % (Auto) Baso % (Auto) Lymph # (Auto) [place] # (Auto) Eos # (Auto) Baso # (Auto) Abs Immat Gran (auto) Absolute Neuts (auto) Absolute Nucleated RBC Nucleated RBC % (auto) ESR Hold Purple Top Hold Blue Top Sodium Potassium Chloride Carbon Dioxide Anion Gap BUN Creatinine Estim Creat Clear Calc Estimated GFR POC Glucose 117 H 190 H Random Glucose Estimat Average Glucose Hemoglobin A1c % Lactic Acid Lactic Acid F/U @ 2Hr Calcium Total Bilirubin AST ALT Alkaline Phosphatase C-Reactive Protein Total Protein Albumin Random Vancomycin 21.9 H 07/31/24 07/31/24 08/01/24 16:12 21:07 05:18 WBC RBC Hgb Hct MCV MCH MCHC RDW Plt Count MPV Immature Gran % (Auto) Neut % (Auto) Lymph % (Auto) [place] % (Auto) Eos % (Auto) Baso % (Auto) Lymph # (Auto) [place] # (Auto) Eos # (Auto) Baso # (Auto) Abs Immat Gran (auto) Absolute Neuts (auto) Absolute Nucleated RBC Nucleated RBC % (auto) ESR Hold Purple Top SEE NOTE Hold Blue Top Sodium Potassium Chloride Carbon Dioxide Anion Gap BUN Creatinine 1.08 Estim Creat Clear Calc 60.0 Estimated GFR > 60 POC Glucose 155 H 142 H Random Glucose Estimat Average Glucose Hemoglobin A1c % Lactic Acid Lactic Acid F/U @ 2Hr Calcium Total Bilirubin AST ALT Alkaline Phosphatase C-Reactive Protein Total Protein Albumin Random Vancomycin 08/01/24 08/01/24 08/01/24 07:14 11:14 15:58 WBC RBC Hgb Hct MCV MCH MCHC RDW Plt Count MPV Immature Gran % (Auto) Neut % (Auto) Lymph % (Auto) [place] % (Auto) Eos % (Auto) Baso % (Auto) Lymph # (Auto) [place] # (Auto) Eos # (Auto) Baso # (Auto) Abs Immat Gran (auto) Absolute Neuts (auto) Absolute Nucleated RBC Nucleated RBC % (auto) ESR Hold Purple Top Hold Blue Top Sodium Potassium Chloride Carbon Dioxide Anion Gap BUN Creatinine Estim Creat Clear Calc Estimated GFR POC Glucose 117 H 202 H 124 H Random Glucose Estimat Average Glucose Hemoglobin A1c % Lactic Acid Lactic Acid F/U @ 2Hr Calcium Total Bilirubin AST ALT Alkaline Phosphatase C-Reactive Protein Total Protein Albumin Random Vancomycin 08/01/24 08/01/24 08/02/24 17:56 20:19 05:17 WBC RBC Hgb Hct MCV MCH MCHC RDW Plt Count MPV Immature Gran % (Auto) Neut % (Auto) Lymph % (Auto) [place] % (Auto) Eos % (Auto) Baso % (Auto) Lymph # (Auto) [place] # (Auto) Eos # (Auto) Baso # (Auto) Abs Immat Gran (auto) Absolute Neuts (auto) Absolute Nucleated RBC Nucleated RBC % (auto) ESR Hold Purple Top SEE NOTE Hold Blue Top Sodium Potassium Chloride Carbon Dioxide Anion Gap BUN Creatinine 1.03 Estim Creat Clear Calc 62.9 Estimated GFR > 60 POC Glucose 156 H Random Glucose Estimat Average Glucose Hemoglobin A1c % Lactic Acid Lactic Acid F/U @ 2Hr Calcium Total Bilirubin AST ALT Alkaline Phosphatase C-Reactive Protein Total Protein Albumin Random Vancomycin 20.4 H 08/02/24 08/02/24 07:06 11:25 WBC RBC Hgb Hct MCV MCH MCHC RDW Plt Count MPV Immature Gran % (Auto) Neut % (Auto) Lymph % (Auto) [place] % (Auto) Eos % (Auto) Baso % (Auto) Lymph # (Auto) [place] # (Auto) Eos # (Auto) Baso # (Auto) Abs Immat Gran (auto) Absolute Neuts (auto) Absolute Nucleated RBC Nucleated RBC % (auto) ESR Hold Purple Top Hold Blue Top Sodium Potassium Chloride Carbon Dioxide Anion Gap BUN Creatinine Estim Creat Clear Calc Estimated GFR POC Glucose 104 152 H Random Glucose Estimat Average Glucose Hemoglobin A1c % Lactic Acid Lactic Acid F/U @ 2Hr Calcium Total Bilirubin AST ALT Alkaline Phosphatase C-Reactive Protein Total Protein Albumin Random Vancomycin Airway Mallampati Class: III TM Dist: <=3cm Neck ROM: Limited Heart: rrr Lungs: cta Assessment and Plan Assessment Anesthesia Assessment: Anesthesia Plan Discussed and Chart Reviewed Final Anesthetic Review Family History of Problems with Anesthesia: No History of Problems with Anesthesia: No NPO: Yes ASA Class: III Final Preanesthetic Review: No Changes in Pt Med Stat, Meds/Allgs Chart Reviewed, Consent Obtained/Reviewed and Anes Risks/Benef Reviewed Patient Risk: Intermediate Procedure Risk: Low Anesthetic Plan Anesthetic Plan: GA Disposition: Standard PACU
--- NOTE | 2024-08-02 14:01 | MHC.SHP ---
Pre-Procedural Eval Section A - 24 Hr Update-Section A only Date of Service: 08/02/24 The patient is an INPATIENT: Yes Changes since office visit: No Cold of Flu in the past 2 weeks, No New Medical Problems, No Changes in Medication and No Patient answered all questions The patient has been examined within 24 hours of the surgical procedure. The History & Physical has been completed within 30 days and I have reviewed it.: Yes Section B - Complete if H&P > 30 days Chief Complaint: Foot infection and wound Allergies: Allergies Allergy/AdvReac Type Severity Reaction Status Date / Time No Known Allergies Allergy Verified 07/27/24 15:35 Plan I have reviewed the history and physical and performed a pertinent physical examination on my patient. No changes have occurred unless specified. Time Spent With Patient Time: Total time managing care of this patient today ____ minutes.
[2024-08-02 14:19] LABS: Absolute CD3 Count 3315 cells/uL (840-3060); Absolute CD4 Count 1135 cells/uL (490-1740); Absolute CD8 Count 2188 cells/uL (180-1170); Absolute Lymphocytes 4221 cells/uL (850-3900); CD4 CD8 Ratio 0.52 (0.86-5.00); Percent CD3 Cells 79 % (57-85); Percent CD4 Cells 27 % (30-61); Percent CD8 Cells 52 % (12-42)
--- NOTE | 2024-08-02 14:59 | W.PM.OPN ---
Operative Note Operative Note Date of Service: 08/02/24 Narrative: Preop diagnosis: Osteomyelitis, 2nd toe right Postop diagnosis: The same Procedure: Ray amputation, 2nd toe right Surgeon: Anish Ellis MD assistant activities director: HOMAR Chaney The patient is a 74-year-old male with an ulcer on the dorsal aspect of the 2nd toe on the right with osteomyelitis of the distal and middle phalanges. He wanted to proceed with the amputation instead of prolonged IV antibiotic treatment. He understood the technique of the procedure as well as the risks, benefits, and alternatives. He was brought to the operating room. He was placed supine under general anesthesia via laryngeal mask airway. The right foot was prepped and draped in the usual fashion. A surgical time-out was done. The patient was receiving scheduled IV antibiotics. I infiltrated the planned line of incision with lidocaine 1%. I made an incision in the skin surrounding the 2nd toe tapering towards the dorsal aspect using blade 15. This carried down with electrocautery through the full-thickness of the skin and subcutaneous fat through the tissue to expose the distal better call part. I used the curved Ness scissors to divide the rest of the soft tissue surrounding the distal meta tarsal. I then defined the meta tarsal head and used the periosteal elevator to achieve this. I used the bone cutter to divide the metatarsal head. I applied a bone wax the stump for hemostasis. I cauterized oozing areas. I copiously irrigated Once it appeared that we had good hemostasis, I then reapposed the subcutaneous layer with Polysorb 3-0 simple interrupted sutures. Skin closure was achieved with nylon 3-0 simple interrupted sutures. Dressings were applied. The foot was wrapped with Kerlix and Dwight roll. The procedure was completed. The patient tolerated procedure well. There were no immediate complications. Initial and final counts of sponges and instruments were correct. Estimated blood loss about 25 cc. The patient was extubated without difficulty and transferred to the recovery room with stable vital signs.
--- NOTE | 2024-08-02 15:43 | HO.PM.IMPN ---
Subjective Subjective Date of Service: 08/02/24 Interval History: seen and examined this morning follow up for foot infection/osteo no specific complaints Review of Systems Review of Systems: Yes all other systems are reviewed and are negative Constitutional Constitutional: Denies chills and Denies fever(s) Cardiovascular Cardiovascular: Denies chest pain, Denies palpitations and Denies dyspnea Respiratory Respiratory: Denies cough and Denies dyspnea Gastrointestinal Gastrointestinal: Denies abdominal pain, Denies nausea and Denies vomiting Endocrine Endocrine: Denies palpitations Physical Exam Vital Signs: Vital Signs: Last Vital Signs Temp 97.4 F 08/02/24 15:35 Pulse 81 08/02/24 15:35 Resp 16 08/02/24 15:35 BP 122/72 08/02/24 15:35 Pulse Ox 93 08/02/24 15:35 O2 Del Method Room Air 08/02/24 15:35 O2 Flow Rate 6 08/02/24 15:20 BMI result Body Mass Index 27.3 Const: General: cooperative, comfortable, no acute distress, alert and awake Nutritional Appearance: average body habitus Orientation/consciousness: patient oriented x3 Resp: Effort & Inspection: normal respiratory effort, able to speak in complete sentences, no respiratory distress and no use of accessory muscles Cardio: Rate: regular rate GI: Inspection: No distended Neuro: General: patient oriented x3 and moves all extremities Extrem: Other: right foot wrapped in clean dressing Objective Data Active Medications Acetaminophen (Acetaminophen 325 Mg Tablet) 650 mg PO Q6H PRN PRN Reason: Pain, Mild 1-3,fever,headache Amlodipine Besylate (Amlodipine Besylate 2.5 Mg Tablet) 2.5 mg PO DAILY [facility]; Protocol Last Admin: 08/02/24 07:49 Dose: 2.5 mg Documented By: KHURRAM Calcium Carbonate (Calcium Carbonate 750 Mg Tab.Chew) 750 mg PO Q4H PRN PRN Reason: Heartburn Darunavir (Darunavir Ethanolate 600 Mg Tablet) 600 mg PO BID [facility] Last Admin: 08/02/24 07:49 Dose: 600 mg Documented By: KHURRAM Dextrose (Dextrose 50 % 25 Gm/50 Ml Syringe) 25 gm IVPUSH Q15M PRN; Protocol PRN Reason: per Hypoglycemia Standing Ord. Enoxaparin Sodium (Enoxaparin Sodium 40 Mg/0.4 Ml Syringe) 40 mg SUBCUT Q24H [facility] Last Admin: 08/01/24 20:46 Dose: Not Given Documented By: BIENVENIDO Non-Admin Reason: Patient Refused Fentanyl (Fentanyl Citrate/Pf 100 Mcg/2 Ml Vial) 25 mcg IVPUSH Q5M PRN PRN Reason: Pain, Moderate to Severe (Pain Scale 4-10) Stop: 08/02/24 19:41 Glipizide (Glipizide 5 Mg Tablet) 5 mg PO BIDWM [facility] Last Admin: 08/01/24 17:02 Dose: 5 mg Documented By: HADLEY Glucose (Glucose Gel 15 Gm Gel..Gram.) 15 gm PO Q15M PRN; Protocol PRN Reason: per Hypoglycemia Standing Ord. Hydrochlorothiazide (Hydrochlorothiazide 12.5 Mg Tablet) 12.5 mg PO DAILY [facility]; Protocol Last Admin: 08/02/24 07:49 Dose: 12.5 mg Documented By: KHURRAM Cefepime HCl (Maxipime) 2 gm in 50 mls @ 100 mls/hr IV Q12H [facility] Last Infusion: 08/02/24 03:58 Dose: Infused Documented By: BIENVENIDO Vancomycin HCl 500 mg/ Sodium (Chloride) 110 mls @ 110 mls/hr IV Q12H [facility] Last Infusion: 08/02/24 09:11 Dose: Infused Documented By: KHURRAM Insulin Human Lispro (Insulin Lispro 100 Unit/Ml 3 Ml Vial) 0 unit SUBCUT QIDACHS [facility]; Protocol Last Admin: 08/02/24 11:48 Dose: Not Given Documented By: KHURRAM Non-Admin Reason: NPO Lisinopril (Lisinopril 10 Mg Tablet) 10 mg PO DAILY [facility]; Protocol Last Admin: 08/02/24 07:49 Dose: 10 mg Documented By: KHURRAM Magnesium Hydroxide (Milk Of Magnesia 30 Ml Oral.Susp) 30 ml PO DAILY PRN PRN Reason: Constipation Melatonin (Melatonin 3 Mg Tablet) 6 mg PO BEDTIME PRN PRN Reason: Insomnia Naloxone HCl (Naloxone Hcl 0.4 Mg/Ml Vial) 0.04 mg IVPUSH Q5M PRN PRN Reason: Excessive sedation or RR < 8 Ondansetron HCl (Ondansetron Hcl 4 Mg/2 Ml Vial) 4 mg IVPUSH ONCE PRN PRN Reason: Nausea and Vomiting Stop: 08/02/24 19:41 Pharmacy Consult (Consult Rx Vancomycin Dosing) 1 each MISCELLANE DAILY PRN PRN Reason: Consult order Raltegravir (Raltegravir Potassium 400 Mg Tablet) 400 mg PO BID [facility] Last Admin: 08/02/24 07:49 Dose: 400 mg Documented By: KHURRAM Sodium Chloride (0.9 % Sodium Chloride Flush 3 Ml Syringe) 3 ml IVFLUSH QSHIFT [facility] Last Admin: 08/02/24 07:50 Dose: 3 ml Documented By: KHURRAM Labs 07/27/24 15:58 08/02/24 05:17 Labs: Laboratory Results - last 24 hr 07/27/24 08/01/24 08/01/24 18:29 15:58 17:56 Hold Purple Top Estim Creat Clear Calc Estimated GFR POC Glucose 124 H Random Vancomycin 20.4 H Total Lymphocytes 4221 H % CD3 Cells 79 Absolute CD3 Count 3315 H % CD4 Cells 27 L Absolute CD4 Count 1135 CD4/CD8 Ratio 0.52 L % CD8 Cells 52 H Absolute CD8 Count 2188 H 08/01/24 08/02/24 08/02/24 20:19 05:17 07:06 Hold Purple Top SEE NOTE Estim Creat Clear Calc 62.9 Estimated GFR > 60 POC Glucose 156 H 104 Random Vancomycin Total Lymphocytes % CD3 Cells Absolute CD3 Count % CD4 Cells Absolute CD4 Count CD4/CD8 Ratio % CD8 Cells Absolute CD8 Count 08/02/24 11:25 Hold Purple Top Estim Creat Clear Calc Estimated GFR POC Glucose 152 H Random Vancomycin Total Lymphocytes % CD3 Cells Absolute CD3 Count % CD4 Cells Absolute CD4 Count CD4/CD8 Ratio % CD8 Cells Absolute CD8 Count Microbiology Microbiology Results: Microbiology 07/27/24 15:58 Blood Culture - Final Blood - Venous No growth after 5 days. 07/27/24 15:58 Blood Culture - Final Blood - Venous No growth after 5 days. Assessment and Plan (1) Acute osteomyelitis of toe of right foot: Status: Acute Assessment and Plan: This is a 74-year-old male with a PMH significant for HIV and HTN?who presents to the ED for evaluation of worsening right toe wound/ 2nd toe osteomyelitis in the setting of new onset diabetes. Acute osteomyelitis of right second toe In the setting of undiagnosed/new onset diabetes X-ray of right foot suggestive of osteomyelitis seen by vascular - vascular supply not primary issue continue vancomycin and cefepime, started 07/27/2024 Dry dressings daily for the foot and wrapped with Chen roll to keep clean General surgery consult noted-s/p bluntly debrided this and cleaned the area with normal saline. Plan for amputation today, NPO after midnight New onset type 2 diabetes with hyperglycemia A1c 9.2 patient prefers po meds>adjusted glipizide 5mg po bid ss, Diabetic diet, diabetic counseling Acute lactic acidosis Initial lactic acid 2.6 with repeat 2.2 with hydration Not secondary to sepsis no need to trend further lactic acid . HTN uncontrolled on hctz, lisinopril adjusted 10 mg qd and amlodipine 2.5 mg qd. HIV Continue home meds Check CD4 levels as pt has not followed with PCP in some years OLIVER arellano Full Code, verified with pt DVT Prophylaxis: Lovenox Quality Stroke Does the patient have a stroke diagnosis?: No VTE Prior VTE?: No VTE Risk Level:: Medical - moderate - high VTE Device Contraindication: Treatment Not Indicated VTE Drug Contraindication: N/A - Med Ordered
[2024-08-02 16:00] LABS: Glucose, Whole Blood 133 mg/dL (60-115)
[2024-08-02] MEDS: glipiZIDE 5 MG TABLET PO (17:04)
[2024-08-02 18:40] LABS: Vancomycin Random 16.3 mcg/mL (15-20)
--- NOTE | 2024-08-02 18:46 | HE.PHANOTE ---
Re Vanco Renal function progressively declining. Trough returned at 16.3, pt is therapeutic. Predictions show current regimen will go below therapeutic goals. Dose change to 750mg q12h with predicted AUC 489, predicted trough 16.8. Next trough 08/03 @ 1800.
[2024-08-02 20:07] LABS: Glucose, Whole Blood 304 mg/dL (60-115)
[2024-08-02] MEDS: Enoxaparin Sodium 40 MG/0.4 ML SYRINGE SUBCUT (20:43)
[2024-08-02] MEDS: Insulin Lispro 100 UNIT/ML 3 ML VIAL SUBCUT (20:43)
[2024-08-02] MEDS: Docusate Sodium 100 MG CAPSULE PO (20:43)
[2024-08-02] MEDS: vancomycin HCL 750 MG in 0.9 % Sodium Chloride 250 ML 265 MG IV (20:46)
[2024-08-03] VITALS (7 sets, daily range): BP systolic 126–153; BP diastolic 68–83; PULSE 76–93; RESP 16–18; TEMP 36.2–36.6; O2SAT 93–98
[2024-08-03] MEDS: cefEPime HCl/D5W 2 GM/50 ML PIGGYBACK IV (03:40)
[2024-08-03] MEDS: polyethylene glycoL 3350 17 GM POWD.PACK PO (06:01)
[2024-08-03 06:38] LABS: Creatinine Clr Calc Pharmacy 65.5; Estimated Glomerular Filt Rate > 60
--- NOTE | 2024-08-03 06:40 | PM.PNGS ---
Subjective Subjective Date of Service: 08/03/24 <[facility] Last Filed: 08/03/24 06:59> 08/03/24 <Srinath Chaney PA-C - Last Filed: 08/03/24 07:50> Interval history: Patient doing well this morning, reporting no incisional site pain. Reports urinating and tolerating diet, no BM. Reports using incentive spirometry few times yesterday. Has not been up out of bed. Denies fever, chills, chest pain, SOB, abd pain, N/V, numbness/tingling. <[facility] Last Filed: 08/03/24 06:59> Physical Exam Vital Signs: Vital Signs: Last Vital Signs Temp 97.4 F 08/03/24 03:05 Pulse 88 08/03/24 03:05 Resp 16 08/03/24 03:05 BP 126/70 08/03/24 03:05 Pulse Ox 93 08/03/24 03:05 O2 Del Method Room Air 08/03/24 03:05 O2 Flow Rate 6 08/02/24 15:20 BMI result Body Mass Index 27.3 <[facility] Last Filed: 08/03/24 06:59> Const: General: cooperative, no acute distress, alert and awake <[facility] Filed: 08/03/24 06:59> Orientation/consciousness: patient oriented x3 <[facility] Filed: 08/03/24 06:59> Resp: Effort & Inspection: normal respiratory effort and able to speak in complete sentences <[facility] Last Filed: 08/03/24 06:59> GI: Palpation (GI): Soft to palpation, nontender, no guarding and not rigid <[facility] Last Filed: 08/03/24 06:59> Neuro: General: patient oriented x3 and moves all extremities <[facility] Last Filed: 08/03/24 06:59> Extrem: Other: Dressing on right foot unsaturated. Patient with full ROM of right leg and foot, able to move toes through dressing. <[facility] Last Filed: 08/03/24 06:59> Other: Dressing on right foot unsaturated. Patient with full ROM of right leg and foot, able to move toes through dressing. No edema of the RLE note <Srinath Chaney PA-C - Last Filed: 08/03/24 07:50> Objective Data Active Medications Acetaminophen (Acetaminophen 325 Mg Tablet) 650 mg PO Q6H PRN PRN Reason: Pain, Mild 1-3,fever,headache Amlodipine Besylate (Amlodipine Besylate 2.5 Mg Tablet) 2.5 mg PO DAILY [facility]; Protocol Last Admin: 08/02/24 07:49 Dose: 2.5 mg Documented By: KHURRAM Calcium Carbonate (Calcium Carbonate 750 Mg Tab.Chew) 750 mg PO Q4H PRN PRN Reason: Heartburn Darunavir (Darunavir Ethanolate 600 Mg Tablet) 600 mg PO BID [facility] Last Admin: 08/02/24 20:43 Dose: 600 mg Documented By: BIENVENIDO Dextrose (Dextrose 50 % 25 Gm/50 Ml Syringe) 25 gm IVPUSH Q15M PRN; Protocol PRN Reason: per Hypoglycemia Standing Ord. Docusate Sodium (Docusate Sodium 100 Mg Capsule) 100 mg PO BEDTIME [facility] Last Admin: 08/02/24 20:43 Dose: 100 mg Documented By: BIENVENIDO Enoxaparin Sodium (Enoxaparin Sodium 40 Mg/0.4 Ml Syringe) 40 mg SUBCUT Q24H [facility] Last Admin: 08/02/24 20:43 Dose: 40 mg Documented By: BIENVENIDO Glipizide (Glipizide 5 Mg Tablet) 5 mg PO BIDWM [facility] Last Admin: 08/02/24 17:04 Dose: 5 mg Documented By: KHURRAM Glucose (Glucose Gel 15 Gm Gel..Gram.) 15 gm PO Q15M PRN; Protocol PRN Reason: per Hypoglycemia Standing Ord. Hydrochlorothiazide (Hydrochlorothiazide 12.5 Mg Tablet) 12.5 mg PO DAILY [facility]; Protocol Last Admin: 08/02/24 07:49 Dose: 12.5 mg Documented By: KHURRAM Cefepime HCl (Maxipime) 2 gm in 50 mls @ 100 mls/hr IV Q12H [facility] Last Infusion: 08/03/24 04:17 Dose: Infused Documented By: BIENVENIDO Vancomycin HCl 750 mg/ Sodium (Chloride) 265 mls @ 265 mls/hr IV Q12H [facility] Last Infusion: 08/02/24 21:53 Dose: Infused Documented By: BIENVENIDO Insulin Human Lispro (Insulin Lispro 100 Unit/Ml 3 Ml Vial) 0 unit SUBCUT QIDACHS [facility]; Protocol Last Admin: 08/02/24 20:43 Dose: 8 unit Documented By: BIENVENIDO Lisinopril (Lisinopril 10 Mg Tablet) 10 mg PO DAILY [facility]; Protocol Last Admin: 08/02/24 07:49 Dose: 10 mg Documented By: KHURRAM Magnesium Hydroxide (Milk Of Magnesia 30 Ml Oral.Susp) 30 ml PO DAILY PRN PRN Reason: Constipation Melatonin (Melatonin 3 Mg Tablet) 6 mg PO BEDTIME PRN PRN Reason: Insomnia Morphine Sulfate (Morphine Sulfate 4 Mg/Ml Cartridge) 3 mg IVPUSH Q3H PRN; Protocol PRN Reason: Pain, Severe (Pain Scale 7-10) Naloxone HCl (Naloxone Hcl 0.4 Mg/Ml Vial) 0.04 mg IVPUSH Q5M PRN PRN Reason: Excessive sedation or RR < 8 Oxycodone HCl (Oxycodone Hcl Immed Release 5 Mg Tablet) 5 mg PO Q4H PRN PRN Reason: Pain, Moderate(Pain Scale 4-6) Pharmacy Consult (Consult Rx Vancomycin Dosing) 1 each MISCELLANE DAILY PRN PRN Reason: Consult order Polyethylene Glycol (Polyethylene Glycol 3350 17 Gm Powd.Pack) 17 gm PO DAILY PRN PRN Reason: Constipation Last Admin: 08/03/24 06:01 Dose: 17 gm Documented By: BIENVENIDO Raltegravir (Raltegravir Potassium 400 Mg Tablet) 400 mg PO BID [facility] Last Admin: 08/02/24 20:43 Dose: 400 mg Documented By: BIENVENIDO Sodium Chloride (0.9 % Sodium Chloride Flush 3 Ml Syringe) 3 ml IVFLUSH QSHIFT [facility] Last Admin: 08/02/24 20:44 Dose: 3 ml Documented By: BIENVENIDO <Yasmeen Andrade - Last Filed: 08/03/24 06:59> Labs CBC & Chem 7: 08/03/24 05:55 08/03/24 05:55 <Yasmeen Andrade - Last Filed: 08/03/24 06:59> Labs: Laboratory Results - last 24 hr 07/27/24 08/02/24 08/02/24 18:29 07:06 11:25 Hold Purple Top Estim Creat Clear Calc Estimated GFR POC Glucose 104 152 H Random Vancomycin Total Lymphocytes 4221 H % CD3 Cells 79 Absolute CD3 Count 3315 H % CD4 Cells 27 L Absolute CD4 Count 1135 CD4/CD8 Ratio 0.52 L % CD8 Cells 52 H Absolute CD8 Count 2188 H 08/02/24 08/02/24 08/02/24 15:56 18:09 19:48 Hold Purple Top Estim Creat Clear Calc Estimated GFR POC Glucose 133 H 304 H Random Vancomycin 16.3 Total Lymphocytes % CD3 Cells Absolute CD3 Count % CD4 Cells Absolute CD4 Count CD4/CD8 Ratio % CD8 Cells Absolute CD8 Count 08/03/24 05:55 Hold Purple Top SEE NOTE Estim Creat Clear Calc 65.5 Estimated GFR > 60 POC Glucose Random Vancomycin Total Lymphocytes % CD3 Cells Absolute CD3 Count % CD4 Cells Absolute CD4 Count CD4/CD8 Ratio % CD8 Cells Absolute CD8 Count <Yasmeen [place] - Last Filed: 08/03/24 06:59> Procedures Date of Service Date of Service: 08/03/24 <[facility] - Last Filed: 08/03/24 06:59> 08/03/24 <Srinath Chaney PA-C - Last Filed: 08/03/24 07:50> Progress Note: A&P Assessment and plan (1) Acute osteomyelitis of toe of right foot: Status: Acute <[facility] [place] - Last Filed: 08/03/24 06:59> Assessment and Plan: 74 year old male POD1 from right 2nd toe amputation due to acute osteomyelitis. Patient reporting no pain. Tolerating diet and using incentive spirometry. Dressing on right foot unsaturated. Patient with full ROM of right leg and foot, able to move toes through dressing. Vital signs stable. Remains on antibiotics. Denies fever, chills, chest pain, SOB. Plan: -continue antibiotics -continue pain management, as needed -continue diet as tolerated, DVT prophylaxsis -encourage spirometry 10x/hr -PT consult, ambulation -plan for discharge tomorrow if patient continuing to due well <Yasmeen [place] - Last Filed: 08/03/24 06:59> 74 year old male POD1 from right 2nd toe amputation due to acute osteomyelitis. Patient reporting no pain. Tolerating diet and using incentive spirometry. Dressing on right foot unsaturated. Patient with full ROM of right leg and foot, able to move toes through dressing. Vital signs stable. Remains on antibiotics. Denies fever, chills, chest pain, SOB. Plan: -continue antibiotics -continue pain management, as needed -continue diet as tolerated, DVT prophylaxsis -encourage spirometry 10x/hr -PT consult, ambulation as tolerated -plan for discharge tomorrow if patient continuing to due well Patient seen and evaluated independently. I agree with the above plan. Patient found to have increased leukocytosis on AM labs, likely reactive. -maintain adequate glucose control -recommend nonweight bearing on the forefoot <Srinath Chaney PA-C - Last Filed: 08/03/24 07:50> Time Spent With Patient Time: Total time managing care of this patient today ____ minutes. <Yasmeen [place]ver - Last Filed: 08/03/24 06:59> Quality Stroke Does the patient have a stroke diagnosis?: No <Yasmeen Cainver - Last Filed: 08/03/24 06:59> VTE Prior VTE?: No <Yasmeen - Last Filed: 08/03/24 06:59> VTE Risk Level:: Medical - moderate - high < - Last Filed: 08/03/24 06:59> VTE Device Contraindication: Treatment Not Indicated <Yasmeen Cainver - Last Filed: 08/03/24 06:59> VTE Drug Contraindication: N/A - Med Ordered < Last Filed: 08/03/24 06:59>
[2024-08-03 07:04] LABS: Glucose, Whole Blood 149 mg/dL (60-115)
[2024-08-03 07:20] LABS: Hematocrit 43.1 % (42.0-52.0); Mean Corpuscular HGB Conc 34.8 g/dl (31.0-36.0); Mean Corpuscular Hemoglobin 29.9 pg (27.0-33.0); Mean Corpuscular Volume 85.9 fL (80.0-98.0); Mean Platelet Volume 10.1 fL (9.4-12.4); Platelet Count 325 X10*3/uL (160-400); Red Blood Count 5.02 X10*6/uL (4.60-5.80); Red Cell Distribution Width 12.3 % (11.0-16.0); White Blood Count 16.4 X10*3/uL (4.8-10.8)
--- NOTE | 2024-08-03 07:59 | HO.POSTANES ---
Post Anesthesia Evaluation Post Anesthesia Evaluation Date of Service: 08/03/24 Vital Signs: Vital Signs Temp Pulse Resp BP Pulse Ox O2 Del Method 08/03/24 07:28 97.8 F 82 18 148/83 H 96 Room Air 08/03/24 03:05 97.4 F 88 16 126/70 93 Room Air 08/02/24 23:32 97.7 F 97 18 135/79 93 Room Air Anesthesia: General Mental Status: Awake Pain Control: Satisfactory Nausea/Vomiting: None Hydration: Adequate Anesthesia-Related Issues: No Anes. Related Issues
[2024-08-03] MEDS: Raltegravir Potassium 400 MG TABLET PO ×2 (08:28→21:10)
[2024-08-03] MEDS: lisinopriL 10 MG TABLET PO (08:28)
[2024-08-03] MEDS: amLODIPine Besylate 2.5 MG TABLET PO (08:28)
[2024-08-03] MEDS: DARUNAVIR ETHANOLATE 600 MG PO ×2 (08:28→21:10)
[2024-08-03] MEDS: hydroCHLOROthiazide 12.5 MG TABLET PO (08:29)
[2024-08-03] MEDS: 0.9 % Sodium Chloride Flush 3 ML SYRINGE IVFLUSH ×3 (08:29→21:10)
[2024-08-03] MEDS: vancomycin HCL 750 MG in 0.9 % Sodium Chloride 250 ML 265 MG IV (08:29)
[2024-08-03] MEDS: glipiZIDE 5 MG TABLET PO ×2 (08:29→17:10)
[2024-08-03 11:35] LABS: Glucose, Whole Blood 233 mg/dL (60-115)
[2024-08-03] MEDS: Insulin Lispro 100 UNIT/ML 3 ML VIAL SUBCUT ×3 (11:55→21:09)
[2024-08-03] MEDS: Doxycycline Monohydrate 100 MG CAPSULE PO (13:57)
[2024-08-03 14:53] LABS: Appearance Urine Cloudy; Color Urine Red; Glucose Urine UA 250 mg/dL (Negative); Leukocyte Esterase Urine Small (1+) (Negative); Nitrite Urine Negative (Negative); UMIC TRIGGER UACC YES; Urine Blood Large (3+) (Negative); Urine Ketones Negative (Negative); Urine Protein 100 (2+) mg/dL (Neg-Trace)
[2024-08-03 14:54] LABS: Bacteria Urine None Seen (None Seen); RBC Urine >20 /HPF (0-2); Squamous Epithelial Cell Urine 0-2 /HPF (0-2); UACC Culture Trigger YES
--- NOTE | 2024-08-03 14:55 | HO.PM.IMPN ---
Subjective Subjective Date of Service: 08/03/24 Interval History: seen and examined this morning follow up for foot infection/osteo s/p right second toe amputation, pain controlled reporting dysuria Review of Systems Review of Systems: Yes all other systems are reviewed and are negative Constitutional Constitutional: Denies chills and Denies fever(s) Physical Exam Vital Signs: Vital Signs: Last Vital Signs Temp 97.1 F 08/03/24 12:00 Pulse 93 08/03/24 12:00 Resp 18 08/03/24 12:00 BP 153/77 H 08/03/24 12:00 Pulse Ox 98 08/03/24 12:00 O2 Del Method Room Air 08/03/24 12:00 O2 Flow Rate 6 08/02/24 15:20 BMI result Body Mass Index 27.3 Const: General: cooperative, comfortable, no acute distress, alert and awake Nutritional Appearance: average body habitus Orientation/consciousness: patient oriented x3 Resp: Effort & Inspection: normal respiratory effort, able to speak in complete sentences, no respiratory distress and no use of accessory muscles Cardio: Rate: regular rate Skin: Other: right foot wrapped in clean dry dressing; off loading boot Neuro: General: patient oriented x3 Objective Data Active Medications Acetaminophen (Acetaminophen 325 Mg Tablet) 650 mg PO Q6H PRN PRN Reason: Pain, Mild 1-3,fever,headache Amlodipine Besylate (Amlodipine Besylate 2.5 Mg Tablet) 2.5 mg PO DAILY [facility]; Protocol Last Admin: 08/03/24 08:28 Dose: 2.5 mg Documented By: KHURRAM Calcium Carbonate (Calcium Carbonate 750 Mg Tab.Chew) 750 mg PO Q4H PRN PRN Reason: Heartburn Darunavir (Darunavir Ethanolate 600 Mg Tablet) 600 mg PO BID [facility] Last Admin: 08/03/24 08:28 Dose: 600 mg Documented By: KHURRAM Dextrose (Dextrose 50 % 25 Gm/50 Ml Syringe) 25 gm IVPUSH Q15M PRN; Protocol PRN Reason: per Hypoglycemia Standing Ord. Docusate Sodium (Docusate Sodium 100 Mg Capsule) 100 mg PO BEDTIME [facility] Last Admin: 08/02/24 20:43 Dose: 100 mg Documented By: BIENVENIDO Doxycycline Monohydrate (Doxycycline Monohydrate 100 Mg Capsule) 100 mg PO Q12H [facility] Last Admin: 08/03/24 13:57 Dose: 100 mg Documented By: KHURRAM Enoxaparin Sodium (Enoxaparin Sodium 40 Mg/0.4 Ml Syringe) 40 mg SUBCUT Q24H [facility] Last Admin: 08/02/24 20:43 Dose: 40 mg Documented By: BIENVENIDO Glipizide (Glipizide 5 Mg Tablet) 5 mg PO BIDWM [facility] Last Admin: 08/03/24 08:29 Dose: 5 mg Documented By: KHURRAM Glucose (Glucose Gel 15 Gm Gel..Gram.) 15 gm PO Q15M PRN; Protocol PRN Reason: per Hypoglycemia Standing Ord. Hydrochlorothiazide (Hydrochlorothiazide 12.5 Mg Tablet) 12.5 mg PO DAILY [facility]; Protocol Last Admin: 08/03/24 08:29 Dose: 12.5 mg Documented By: KHURRAM Insulin Human Lispro (Insulin Lispro 100 Unit/Ml 3 Ml Vial) 0 unit SUBCUT QIDACHS [facility]; Protocol Last Admin: 08/03/24 11:55 Dose: 4 unit Documented By: KHURRAM Lisinopril (Lisinopril 10 Mg Tablet) 10 mg PO DAILY [facility]; Protocol Last Admin: 08/03/24 08:28 Dose: 10 mg Documented By: KHURRAM Magnesium Hydroxide (Milk Of Magnesia 30 Ml Oral.Susp) 30 ml PO DAILY PRN PRN Reason: Constipation Melatonin (Melatonin 3 Mg Tablet) 6 mg PO BEDTIME PRN PRN Reason: Insomnia Morphine Sulfate (Morphine Sulfate 4 Mg/Ml Cartridge) 3 mg IVPUSH Q3H PRN; Protocol PRN Reason: Pain, Severe (Pain Scale 7-10) Naloxone HCl (Naloxone Hcl 0.4 Mg/Ml Vial) 0.04 mg IVPUSH Q5M PRN PRN Reason: Excessive sedation or RR < 8 Oxycodone HCl (Oxycodone Hcl Immed Release 5 Mg Tablet) 5 mg PO Q4H PRN PRN Reason: Pain, Moderate(Pain Scale 4-6) Polyethylene Glycol (Polyethylene Glycol 3350 17 Gm Powd.Pack) 17 gm PO DAILY PRN PRN Reason: Constipation Last Admin: 08/03/24 06:01 Dose: 17 gm Documented By: BIENVENIDO Raltegravir (Raltegravir Potassium 400 Mg Tablet) 400 mg PO BID [facility] Last Admin: 08/03/24 08:28 Dose: 400 mg Documented By: KHURRAM Sodium Chloride (0.9 % Sodium Chloride Flush 3 Ml Syringe) 3 ml IVFLUSH QSHIFT [facility] Last Admin: 08/03/24 08:29 Dose: 3 ml Documented By: KHURRAM Labs 08/03/24 05:55 08/03/24 05:55 Labs: Laboratory Results - last 24 hr 07/27/24 08/02/24 08/02/24 18:29 15:56 18:09 MCV MCH MCHC RDW Plt Count MPV Absolute Nucleated RBC Nucleated RBC % (auto) Hold Purple Top Estim Creat Clear Calc Estimated GFR POC Glucose 133 H Urine Color Urine Appearance Urine pH Ur Specific [place] Urine Protein Urine Glucose (UA) Urine Ketones Urine Blood Urine Nitrite Ur Leukocyte Esterase Urine RBC Urine WBC Ur Squamous Epith Cells Urine Bacteria Hyaline Casts Random Vancomycin 16.3 Lymphocyte Subset Cmmnt TNP 08/02/24 08/03/24 08/03/24 19:48 05:55 07:00 MCV 85.9 MCH 29.9 MCHC 34.8 RDW 12.3 Plt Count 325 MPV 10.1 Absolute Nucleated RBC 0.000 Nucleated RBC % (auto) 0.0 Hold Purple Top SEE NOTE Estim Creat Clear Calc 65.5 Estimated GFR > 60 POC Glucose 304 H 149 H Urine Color Urine Appearance Urine pH Ur Specific [place] Urine Protein Urine Glucose (UA) Urine Ketones Urine Blood Urine Nitrite Ur Leukocyte Esterase Urine RBC Urine WBC Ur Squamous Epith Cells Urine Bacteria Hyaline Casts Random Vancomycin Lymphocyte Subset Cmmnt 08/03/24 08/03/24 11:32 14:21 MCV MCH MCHC RDW Plt Count MPV Absolute Nucleated RBC Nucleated RBC % (auto) Hold Purple Top Estim Creat Clear Calc Estimated GFR POC Glucose 233 H Urine Color Red A Urine Appearance Cloudy Urine pH 5.0 Ur Specific [place] 1.020 Urine Protein 100 (2+) H Urine Glucose (UA) 250 H Urine Ketones Negative Urine Blood Large (3+) H Urine Nitrite Negative Ur Leukocyte Esterase Small (1+) H Urine RBC >20 H Urine WBC 6-10 H Ur Squamous Epith Cells 0-2 Urine Bacteria None Seen Hyaline Casts 3-5 Random Vancomycin Lymphocyte Subset Cmmnt Assessment and Plan (1) Acute osteomyelitis of toe of right foot: Status: Acute Plan This is a 74-year-old male with a PMH significant for HIV and HTN?who presents to the ED for evaluation of worsening right toe wound/ 2nd toe osteomyelitis in the setting of new onset diabetes. Acute osteomyelitis of right second toe In the setting of undiagnosed/new onset diabetes X-ray of right foot suggestive of osteomyelitis seen by vascular - vascular supply not primary issue initially treated with IV vancomycin and cefepime s/p toe amputation 08/02. no need for mcc abx as source of infection has been removed General surgery following New onset type 2 diabetes with hyperglycemia A1c 9.2 patient prefers po meds>adjusted glipizide 5mg po bid ss, Diabetic diet, diabetic counseling Acute lactic acidosis Initial lactic acid 2.6 with repeat 2.2 with hydration Not secondary to sepsis no need to trend further lactic acid . HTN uncontrolled on hctz, lisinopril adjusted 10 mg qd and amlodipine 2.5 mg qd. HIV Continue home meds outpatient follow up with ID at [facility] [place] Full Code DVT Prophylaxis: Lovenox PT rec - STR Quality Stroke Does the patient have a stroke diagnosis?: No VTE Prior VTE?: No VTE Risk Level:: Medical - moderate - high VTE Device Contraindication: Treatment Not Indicated VTE Drug Contraindication: N/A - Med Ordered
--- NOTE | 2024-08-03 15:37 | MHC.CM.PN ---
PT STATING HE WOULD LIKE TO GO TO STR RECOMMENDED BY PHYSICAL THERAPY PT UPDATES SENT [facility] FOLLOWING
[2024-08-03 16:13] LABS: Glucose, Whole Blood 217 mg/dL (60-115)
--- NOTE | 2024-08-03 19:08 | PC.NURSE ---
Pt developed meatal bleeding post void. States he felt burning at end of urine stream and then started bleeding. Urinalysis sent for culture.
[2024-08-03 19:48] LABS: Glucose, Whole Blood 199 mg/dL (60-115)
[2024-08-03] MEDS: Docusate Sodium 100 MG CAPSULE PO (21:10)
[2024-08-03] MEDS: Enoxaparin Sodium 40 MG/0.4 ML SYRINGE SUBCUT (21:10)
[2024-08-04] VITALS (7 sets, daily range): BP systolic 113–147; BP diastolic 64–81; PULSE 65–89; RESP 16–18; TEMP 36.4–37.2; O2SAT 93–99
[2024-08-04] MEDS: Doxycycline Monohydrate 100 MG CAPSULE PO ×2 (00:15→12:54)
[2024-08-04 07:38] LABS: Creatinine Clr Calc Pharmacy 64.2; Estimated Glomerular Filt Rate > 60
[2024-08-04 07:40] LABS: Glucose, Whole Blood 100 mg/dL (60-115)
[2024-08-04] MEDS: 0.9 % Sodium Chloride Flush 3 ML SYRINGE IVFLUSH ×3 (08:52→20:06)
[2024-08-04] MEDS: lisinopriL 10 MG TABLET PO (08:52)
[2024-08-04] MEDS: cefTRIAXone sodium 1 GM VIAL IVPUSH (08:52)
[2024-08-04] MEDS: amLODIPine Besylate 2.5 MG TABLET PO (08:52)
[2024-08-04] MEDS: hydroCHLOROthiazide 12.5 MG TABLET PO (08:52)
[2024-08-04] MEDS: glipiZIDE 5 MG TABLET PO ×2 (08:52→16:43)
[2024-08-04] MEDS: Raltegravir Potassium 400 MG TABLET PO ×2 (08:53→20:06)
[2024-08-04] MEDS: DARUNAVIR ETHANOLATE 600 MG PO ×2 (08:53→20:06)
--- NOTE | 2024-08-04 09:27 | HO.PM.IMPN ---
Subjective Subjective Date of Service: 08/04/24 Interval History: follow up for foot infection/osteo s/p right second toe amputation, pain controlled reporting dysuria Review of Systems Review of Systems: Yes all other systems are reviewed and are negative Constitutional Constitutional: Denies chills and Denies fever(s) Physical Exam Vital Signs: Vital Signs: Last Vital Signs Temp 97.8 F 08/04/24 07:29 Pulse 80 08/04/24 07:29 Resp 16 08/04/24 07:29 BP 145/78 H 08/04/24 08:52 Pulse Ox 93 08/04/24 07:29 O2 Del Method Room Air 08/04/24 07:29 O2 Flow Rate 6 08/02/24 15:20 BMI result Body Mass Index 27.3 Appearing in no acute distress lung sounds are clear to auscultation heart regular rate rhythm, clear S1, S2 positive bowel sounds, abdomen is soft, nontender neuro patient is alert x3, no focal deficits Objective Data Active Medications Acetaminophen (Acetaminophen 325 Mg Tablet) 650 mg PO Q6H PRN PRN Reason: Pain, Mild 1-3,fever,headache Amlodipine Besylate (Amlodipine Besylate 2.5 Mg Tablet) 2.5 mg PO DAILY [facility]; Protocol Last Admin: 08/04/24 08:52 Dose: 2.5 mg Documented By: YASMIN Calcium Carbonate (Calcium Carbonate 750 Mg Tab.Chew) 750 mg PO Q4H PRN PRN Reason: Heartburn Ceftriaxone Sodium (Ceftriaxone Sodium 1 Gm Vial) 1 gm IVPUSH Q24H [facility] Last Admin: 08/04/24 08:52 Dose: 1 gm Documented By: YASMIN Darunavir (Darunavir Ethanolate 600 Mg Tablet) 600 mg PO BID [facility] Last Admin: 08/04/24 08:53 Dose: 600 mg Documented By: YASMIN Dextrose (Dextrose 50 % 25 Gm/50 Ml Syringe) 25 gm IVPUSH Q15M PRN; Protocol PRN Reason: per Hypoglycemia Standing Ord. Docusate Sodium (Docusate Sodium 100 Mg Capsule) 100 mg PO BEDTIME [facility] Last Admin: 08/03/24 21:10 Dose: 100 mg Documented By: CHINMAY Doxycycline Monohydrate (Doxycycline Monohydrate 100 Mg Capsule) 100 mg PO Q12H [facility] Last Admin: 08/04/24 00:15 Dose: 100 mg Documented By: CHINMAY Enoxaparin Sodium (Enoxaparin Sodium 40 Mg/0.4 Ml Syringe) 40 mg SUBCUT Q24H [facility] Last Admin: 08/03/24 21:10 Dose: 40 mg Documented By: CHINMAY Glipizide (Glipizide 5 Mg Tablet) 5 mg PO BIDWM [facility] Last Admin: 08/04/24 08:52 Dose: 5 mg Documented By: YASMIN Glucose (Glucose Gel 15 Gm Gel..Gram.) 15 gm PO Q15M PRN; Protocol PRN Reason: per Hypoglycemia Standing Ord. Hydrochlorothiazide (Hydrochlorothiazide 12.5 Mg Tablet) 12.5 mg PO DAILY [facility]; Protocol Last Admin: 08/04/24 08:52 Dose: 12.5 mg Documented By: YASMIN Insulin Human Lispro (Insulin Lispro 100 Unit/Ml 3 Ml Vial) 0 unit SUBCUT QIDACHS [facility]; Protocol Last Admin: 08/04/24 07:48 Dose: Not Given Documented By: YASMIN Non-Admin Reason: No Insulin Coverage Lisinopril (Lisinopril 10 Mg Tablet) 10 mg PO DAILY [facility]; Protocol Last Admin: 08/04/24 08:52 Dose: 10 mg Documented By: YASMIN Magnesium Hydroxide (Milk Of Magnesia 30 Ml Oral.Susp) 30 ml PO DAILY PRN PRN Reason: Constipation Melatonin (Melatonin 3 Mg Tablet) 6 mg PO BEDTIME PRN PRN Reason: Insomnia Morphine Sulfate (Morphine Sulfate 4 Mg/Ml Cartridge) 3 mg IVPUSH Q3H PRN; Protocol PRN Reason: Pain, Severe (Pain Scale 7-10) Naloxone HCl (Naloxone Hcl 0.4 Mg/Ml Vial) 0.04 mg IVPUSH Q5M PRN PRN Reason: Excessive sedation or RR < 8 Oxycodone HCl (Oxycodone Hcl Immed Release 5 Mg Tablet) 5 mg PO Q4H PRN PRN Reason: Pain, Moderate(Pain Scale 4-6) Polyethylene Glycol (Polyethylene Glycol 3350 17 Gm Powd.Pack) 17 gm PO DAILY PRN PRN Reason: Constipation Last Admin: 08/03/24 06:01 Dose: 17 gm Documented By: BIENVENIDO Raltegravir (Raltegravir Potassium 400 Mg Tablet) 400 mg PO BID [facility] Last Admin: 08/04/24 08:53 Dose: 400 mg Documented By: YASMIN Sodium Chloride (0.9 % Sodium Chloride Flush 3 Ml Syringe) 3 ml IVFLUSH QSHIFT [facility] Last Admin: 08/04/24 08:52 Dose: 3 ml Documented By: YASMIN Labs 08/03/24 05:55 08/04/24 06:13 Labs: Laboratory Results - last 24 hr 08/03/24 08/03/24 08/03/24 11:32 14:21 16:01 Hold Purple Top Estim Creat Clear Calc Estimated GFR POC Glucose 233 H 217 H Urine Color Red A Urine Appearance Cloudy Urine pH 5.0 Ur Specific [place] 1.020 Urine Protein 100 (2+) H Urine Glucose (UA) 250 H Urine Ketones Negative Urine Blood Large (3+) H Urine Nitrite Negative Ur Leukocyte Esterase Small (1+) H Urine RBC >20 H Urine WBC 6-10 H Ur Squamous Epith Cells 0-2 Urine Bacteria None Seen Hyaline Casts 3-5 08/03/24 08/04/24 08/04/24 19:32 06:13 07:34 Hold Purple Top SEE NOTE Estim Creat Clear Calc 64.2 Estimated GFR > 60 POC Glucose 199 H 100 Urine Color Urine Appearance Urine pH Ur Specific [place] Urine Protein Urine Glucose (UA) Urine Ketones Urine Blood Urine Nitrite Ur Leukocyte Esterase Urine RBC Urine WBC Ur Squamous Epith Cells Urine Bacteria Hyaline Casts Assessment and Plan (1) Acute osteomyelitis of toe of right foot: Status: Acute Plan 74-year-old male with a PMH significant for HIV and HTN?who presents to the ED for evaluation of worsening right toe wound/ 2nd toe osteomyelitis in the setting of new onset diabetes. Wound dehiscence Large amount of staining to dressing Wound incision appears to be dehisced General surgery notified Acute osteomyelitis of right second toe In the setting of undiagnosed/new onset diabetes X-ray of right foot suggestive of osteomyelitis seen by vascular - vascular supply not primary issue initially treated with IV vancomycin and cefepime s/p toe amputation 08/02. no need for keno terminal operator abx as source of infection has been removed, for now continue Rocephin and doxycycline while inpatient General surgery following New onset type 2 diabetes with hyperglycemia A1c 9.2 patient prefers po meds>adjusted glipizide 5mg po bid ss, Diabetic diet, diabetic counseling Acute lactic acidosis. Resolved Initial lactic acid 2.6 with repeat 2.2 with hydration Not secondary to sepsis no need to trend further lactic acid . HTN uncontrolled on hctz, lisinopril adjusted 10 mg qd and amlodipine 2.5 mg qd. HIV Continue home meds outpatient follow up with ID at [facility] [place] Full Code DVT Prophylaxis: Lovenox PT rec - STR Quality Stroke Does the patient have a stroke diagnosis?: No VTE Prior VTE?: No VTE Risk Level:: Medical - moderate - high VTE Device Contraindication: Treatment Not Indicated VTE Drug Contraindication: N/A - Med Ordered
[2024-08-04 11:24] LABS: Glucose, Whole Blood 104 mg/dL (60-115)
--- NOTE | 2024-08-04 11:48 | PC.NURSE ---
during morning assessment patient's right foot dressing found to be saturated with bright red blood, patient denies hitting foot on bed rail or while ambulating, currently not experiencing any pain, most distal suture noted to be dehisced once soiled dressing was removed. Picture sent to field control inspector surgeon and hospitalist. Wound was cleansed with NS and dry gauze pads applied with kerlix wrap and ROJAS bandage.
[2024-08-04 16:35] LABS: Glucose, Whole Blood 184 mg/dL (60-115)
[2024-08-04] MEDS: Insulin Lispro 100 UNIT/ML 3 ML VIAL SUBCUT ×2 (16:44→20:06)
[2024-08-04 20:06] LABS: Glucose, Whole Blood 201 mg/dL (60-115)
[2024-08-04] MEDS: Docusate Sodium 100 MG CAPSULE PO (20:06)
[2024-08-04] MEDS: Enoxaparin Sodium 40 MG/0.4 ML SYRINGE SUBCUT (21:36)
--- NOTE | 2024-08-04 23:11 | PM.PNGS ---
Subjective Subjective Date of Service: 08/04/24 Interval history: pt feels ok wound was bleeding so nurse took it down and reinforced - tip of incision a little open on my exam looks ok Physical Exam Vital Signs: Vital Signs: Last Vital Signs Temp 98.9 F 08/04/24 19:13 Pulse 88 08/04/24 19:13 Resp 18 08/04/24 19:13 BP 113/64 08/04/24 19:13 Pulse Ox 96 08/04/24 19:13 O2 Del Method Room Air 08/04/24 19:13 O2 Flow Rate 6 08/02/24 15:20 BMI result Body Mass Index 27.3 Skin: Other: right second toe amp site looks ok - most of the incision well approximated no bleeding now General skin exam: Excoriation Objective Data Active Medications Acetaminophen (Acetaminophen 325 Mg Tablet) 650 mg PO Q6H PRN PRN Reason: Pain, Mild 1-3,fever,headache Amlodipine Besylate (Amlodipine Besylate 2.5 Mg Tablet) 2.5 mg PO DAILY [facility]; Protocol Last Admin: 08/04/24 08:52 Dose: 2.5 mg Documented By: YASMIN Calcium Carbonate (Calcium Carbonate 750 Mg Tab.Chew) 750 mg PO Q4H PRN PRN Reason: Heartburn Ceftriaxone Sodium (Ceftriaxone Sodium 1 Gm Vial) 1 gm IVPUSH Q24H [facility] Last Admin: 08/04/24 08:52 Dose: 1 gm Documented By: YASMIN Darunavir (Darunavir Ethanolate 600 Mg Tablet) 600 mg PO BID [facility] Last Admin: 08/04/24 20:06 Dose: 600 mg Documented By: CHINMAY Dextrose (Dextrose 50 % 25 Gm/50 Ml Syringe) 25 gm IVPUSH Q15M PRN; Protocol PRN Reason: per Hypoglycemia Standing Ord. Docusate Sodium (Docusate Sodium 100 Mg Capsule) 100 mg PO BEDTIME [facility] Last Admin: 08/04/24 20:06 Dose: 100 mg Documented By: CHINMAY Doxycycline Monohydrate (Doxycycline Monohydrate 100 Mg Capsule) 100 mg PO Q12H [facility] Last Admin: 08/04/24 12:54 Dose: 100 mg Documented By: YASMIN Enoxaparin Sodium (Enoxaparin Sodium 40 Mg/0.4 Ml Syringe) 40 mg SUBCUT Q24H [facility] Last Admin: 08/04/24 21:36 Dose: 40 mg Documented By: CHINMAY Glipizide (Glipizide 5 Mg Tablet) 5 mg PO BIDWM [facility] Last Admin: 08/04/24 16:43 Dose: 5 mg Documented By: YASMIN Glucose (Glucose Gel 15 Gm Gel..Gram.) 15 gm PO Q15M PRN; Protocol PRN Reason: per Hypoglycemia Standing Ord. Hydrochlorothiazide (Hydrochlorothiazide 12.5 Mg Tablet) 12.5 mg PO DAILY [facility]; Protocol Last Admin: 08/04/24 08:52 Dose: 12.5 mg Documented By: YASMIN Insulin Human Lispro (Insulin Lispro 100 Unit/Ml 3 Ml Vial) 0 unit SUBCUT QIDACHS [facility]; Protocol Last Admin: 08/04/24 20:06 Dose: 4 unit Documented By: CHINMAY Lisinopril (Lisinopril 10 Mg Tablet) 10 mg PO DAILY [facility]; Protocol Last Admin: 08/04/24 08:52 Dose: 10 mg Documented By: YASMIN Magnesium Hydroxide (Milk Of Magnesia 30 Ml Oral.Susp) 30 ml PO DAILY PRN PRN Reason: Constipation Melatonin (Melatonin 3 Mg Tablet) 6 mg PO BEDTIME PRN PRN Reason: Insomnia Morphine Sulfate (Morphine Sulfate 4 Mg/Ml Cartridge) 3 mg IVPUSH Q3H PRN; Protocol PRN Reason: Pain, Severe (Pain Scale 7-10) Naloxone HCl (Naloxone Hcl 0.4 Mg/Ml Vial) 0.04 mg IVPUSH Q5M PRN PRN Reason: Excessive sedation or RR < 8 Oxycodone HCl (Oxycodone Hcl Immed Release 5 Mg Tablet) 5 mg PO Q4H PRN PRN Reason: Pain, Moderate(Pain Scale 4-6) Polyethylene Glycol (Polyethylene Glycol 3350 17 Gm Powd.Pack) 17 gm PO DAILY PRN PRN Reason: Constipation Last Admin: 08/03/24 06:01 Dose: 17 gm Documented By: BIENVENIDO Raltegravir (Raltegravir Potassium 400 Mg Tablet) 400 mg PO BID [facility] Last Admin: 08/04/24 20:06 Dose: 400 mg Documented By: CHINMAY Sodium Chloride (0.9 % Sodium Chloride Flush 3 Ml Syringe) [address] [facility] Last Admin: 08/04/24 20:06 Dose: 3 ml Documented By: CHINMAY Labs 08/03/24 05:55 08/04/24 06:13 Labs: Laboratory Results - last 24 hr 08/04/24 08/04/24 08/04/24 06:13 07:34 11:20 Hold Purple Top SEE NOTE Estim Creat Clear Calc 64.2 Estimated GFR > 60 POC Glucose 100 104 08/04/24 08/04/24 16:31 20:02 Hold Purple Top Estim Creat Clear Calc Estimated GFR POC Glucose 184 H 201 H Microbiology Microbiology Results: Microbiology 08/03/24 Unknown Urine Culture - Preliminary Urine clean catch - Clean Catch Midstream No growth to date. Procedures Date of Service Date of Service: 08/04/24 Progress Note: A&P Assessment and plan (1) Acute osteomyelitis of toe of right foot: Status: Acute Assessment and Plan: cont with iv ceftriaxone - dressing changes daily - xeroform and gauze. Time Spent With Patient Time: Total time managing care of this patient today ____ minutes. Quality Stroke Does the patient have a stroke diagnosis?: No VTE Prior VTE?: No VTE Risk Level:: Medical - moderate - high VTE Device Contraindication: Treatment Not Indicated VTE Drug Contraindication: N/A - Med Ordered
--- NOTE | 2024-08-04 23:15 | P.PNGS_ITS ---
Subjective Subjective Date of Service: 08/05/24 Interval history: Feeling well no issues no bleeding from the amp site. Nurses had just done the dressings so we will re-evaluate it tomorrow Physical Exam 2 Vital Signs: Vital Signs: Last Vital Signs Temp 98.9 F 08/04/24 19:13 Pulse 88 08/04/24 19:13 Resp 18 08/04/24 19:13 BP 113/64 08/04/24 19:13 Pulse Ox 96 08/04/24 19:13 O2 Del Method Room Air 08/04/24 19:13 O2 Flow Rate 6 08/02/24 15:20 BMI result Body Mass Index 27.3 Skin: Other: Dressings intact Objective Data Active Medications Acetaminophen (Acetaminophen 325 Mg Tablet) 650 mg PO Q6H PRN PRN Reason: Pain, Mild 1-3,fever,headache Amlodipine Besylate (Amlodipine Besylate 2.5 Mg Tablet) 2.5 mg PO DAILY [facility]; Protocol Last Admin: 08/04/24 08:52 Dose: 2.5 mg Documented By: YASMIN Calcium Carbonate (Calcium Carbonate 750 Mg Tab.Chew) 750 mg PO Q4H PRN PRN Reason: Heartburn Ceftriaxone Sodium (Ceftriaxone Sodium 1 Gm Vial) 1 gm IVPUSH Q24H [facility] Last Admin: 08/04/24 08:52 Dose: 1 gm Documented By: YASMIN Darunavir (Darunavir Ethanolate 600 Mg Tablet) 600 mg PO BID [facility] Last Admin: 08/04/24 20:06 Dose: 600 mg Documented By: CHINMAY Dextrose (Dextrose 50 % 25 Gm/50 Ml Syringe) 25 gm IVPUSH Q15M PRN; Protocol PRN Reason: per Hypoglycemia Standing Ord. Docusate Sodium (Docusate Sodium 100 Mg Capsule) 100 mg PO BEDTIME [facility] Last Admin: 08/04/24 20:06 Dose: 100 mg Documented By: CHINMAY Doxycycline Monohydrate (Doxycycline Monohydrate 100 Mg Capsule) 100 mg PO Q12H [facility] Last Admin: 08/04/24 12:54 Dose: 100 mg Documented By: YASMIN Enoxaparin Sodium (Enoxaparin Sodium 40 Mg/0.4 Ml Syringe) 40 mg SUBCUT Q24H [facility] Last Admin: 08/04/24 21:36 Dose: 40 mg Documented By: CHINMAY Glipizide (Glipizide 5 Mg Tablet) 5 mg PO BIDWM [facility] Last Admin: 08/04/24 16:43 Dose: 5 mg Documented By: YASMIN Glucose (Glucose Gel 15 Gm Gel..Gram.) 15 gm PO Q15M PRN; Protocol PRN Reason: per Hypoglycemia Standing Ord. Hydrochlorothiazide (Hydrochlorothiazide 12.5 Mg Tablet) 12.5 mg PO DAILY [facility]; Protocol Last Admin: 08/04/24 08:52 Dose: 12.5 mg Documented By: YASMIN Insulin Human Lispro (Insulin Lispro 100 Unit/Ml 3 Ml Vial) 0 unit SUBCUT QIDACHS [facility]; Protocol Last Admin: 08/04/24 20:06 Dose: 4 unit Documented By: CHINMAY Lisinopril (Lisinopril 10 Mg Tablet) 10 mg PO DAILY [facility]; Protocol Last Admin: 08/04/24 08:52 Dose: 10 mg Documented By: YASMIN Magnesium Hydroxide (Milk Of Magnesia 30 Ml Oral.Susp) 30 ml PO DAILY PRN PRN Reason: Constipation Melatonin (Melatonin 3 Mg Tablet) 6 mg PO BEDTIME PRN PRN Reason: Insomnia Morphine Sulfate (Morphine Sulfate 4 Mg/Ml Cartridge) 3 mg IVPUSH Q3H PRN; Protocol PRN Reason: Pain, Severe (Pain Scale 7-10) Naloxone HCl (Naloxone Hcl 0.4 Mg/Ml Vial) 0.04 mg IVPUSH Q5M PRN PRN Reason: Excessive sedation or RR < 8 Oxycodone HCl (Oxycodone Hcl Immed Release 5 Mg Tablet) 5 mg PO Q4H PRN PRN Reason: Pain, Moderate(Pain Scale 4-6) Polyethylene Glycol (Polyethylene Glycol 3350 17 Gm Powd.Pack) 17 gm PO DAILY PRN PRN Reason: Constipation Last Admin: 08/03/24 06:01 Dose: 17 gm Documented By: BIENVENIDO Raltegravir (Raltegravir Potassium 400 Mg Tablet) 400 mg PO BID [facility] Last Admin: 08/04/24 20:06 Dose: 400 mg Documented By: CHINMAY Sodium Chloride (0.9 % Sodium Chloride Flush 3 Ml Syringe) [facility] Last Admin: 08/04/24 20:06 Dose: 3 ml Documented By: HO.CROP Labs 08/03/24 05:55 08/05/24 05:48 Labs: Laboratory Results - last 24 hr 08/04/24 08/04/24 08/04/24 06:13 07:34 11:20 Hold Purple Top SEE NOTE Estim Creat Clear Calc 64.2 Estimated GFR > 60 POC Glucose 100 104 08/04/24 08/04/24 16:31 20:02 Hold Purple Top Estim Creat Clear Calc Estimated GFR POC Glucose 184 H 201 H Microbiology Microbiology Results: Microbiology 08/03/24 Unknown Urine Culture - Preliminary Urine clean catch - Clean Catch Midstream No growth to date. Procedures Date of Service Date of Service: 08/05/24 Progress Note: A&P Assessment and plan (1) Acute osteomyelitis of toe of right foot: Status: Acute Assessment and Plan: Patient is status post amputation of right 2nd toe site of osteomyelitis has been removed. Would treat with antibiotics for defined period of time IV may switch over to p.o. on discharge. Continue with dressing changes of Xeroform and fluff gauze. Change daily. Time Spent With Patient Time: Total time managing care of this patient today ____ minutes. Quality Stroke Does the patient have a stroke diagnosis?: No VTE Prior VTE?: No VTE Risk Level:: Medical - moderate - high VTE Device Contraindication: Treatment Not Indicated VTE Drug Contraindication: N/A - Med Ordered
[2024-08-05] VITALS (7 sets, daily range): BP systolic 114–136; BP diastolic 59–74; PULSE 75–97; RESP 16–20; TEMP 36.1–37.1; O2SAT 94–98
[2024-08-05] MEDS: Doxycycline Monohydrate 100 MG CAPSULE PO ×2 (00:18→11:55)
[2024-08-05 06:55] LABS: Creatinine Clr Calc Pharmacy 56.4; Estimated Glomerular Filt Rate > 60
[2024-08-05 07:04] LABS: Glucose, Whole Blood 104 mg/dL (60-115)
[2024-08-05] MEDS: cefTRIAXone sodium 1 GM VIAL IVPUSH (07:44)
[2024-08-05] MEDS: 0.9 % Sodium Chloride Flush 3 ML SYRINGE IVFLUSH ×3 (07:45→21:54)
[2024-08-05] MEDS: lisinopriL 10 MG TABLET PO (07:45)
[2024-08-05] MEDS: amLODIPine Besylate 2.5 MG TABLET PO (07:45)
[2024-08-05] MEDS: glipiZIDE 5 MG TABLET PO ×2 (07:45→16:47)
[2024-08-05] MEDS: hydroCHLOROthiazide 12.5 MG TABLET PO (07:45)
[2024-08-05] MEDS: Raltegravir Potassium 400 MG TABLET PO ×2 (07:45→21:48)
[2024-08-05] MEDS: DARUNAVIR ETHANOLATE 600 MG PO ×2 (07:45→21:48)
--- NOTE | 2024-08-05 08:10 | HO.PM.IMPN ---
Subjective Subjective Date of Service: 08/05/24 Interval History: follow up for foot infection/osteo s/p right second toe amputation, pain controlled reporting dysuria Review of Systems Review of Systems: Yes all other systems are reviewed and are negative Constitutional Constitutional: Denies chills and Denies fever(s) Physical Exam Vital Signs: Vital Signs: Last Vital Signs Temp 98.6 F 08/05/24 07:18 Pulse 75 08/05/24 07:18 Resp 16 08/05/24 07:18 BP 114/59 L 08/05/24 07:45 Pulse Ox 94 08/05/24 07:18 O2 Del Method Room Air 08/05/24 07:18 O2 Flow Rate 6 08/02/24 15:20 BMI result Body Mass Index 27.3 Objective Data Active Medications Acetaminophen (Acetaminophen 325 Mg Tablet) 650 mg PO Q6H PRN PRN Reason: Pain, Mild 1-3,fever,headache Amlodipine Besylate (Amlodipine Besylate 2.5 Mg Tablet) 2.5 mg PO DAILY [facility]; Protocol Last Admin: 08/05/24 07:45 Dose: 2.5 mg Documented By: YASMIN Calcium Carbonate (Calcium Carbonate 750 Mg Tab.Chew) 750 mg PO Q4H PRN PRN Reason: Heartburn Ceftriaxone Sodium (Ceftriaxone Sodium 1 Gm Vial) 1 gm IVPUSH Q24H [facility] Last Admin: 08/05/24 07:44 Dose: 1 gm Documented By: YASMIN Darunavir (Darunavir Ethanolate 600 Mg Tablet) 600 mg PO BID [facility] Last Admin: 08/05/24 07:45 Dose: 600 mg Documented By: YASMIN Dextrose (Dextrose 50 % 25 Gm/50 Ml Syringe) 25 gm IVPUSH Q15M PRN; Protocol PRN Reason: per Hypoglycemia Standing Ord. Docusate Sodium (Docusate Sodium 100 Mg Capsule) 100 mg PO BEDTIME [facility] Last Admin: 08/04/24 20:06 Dose: 100 mg Documented By: CHINMAY Doxycycline Monohydrate (Doxycycline Monohydrate 100 Mg Capsule) 100 mg PO Q12H [facility] Last Admin: 08/05/24 00:18 Dose: 100 mg Documented By: CHINMAY Enoxaparin Sodium (Enoxaparin Sodium 40 Mg/0.4 Ml Syringe) 40 mg SUBCUT Q24H [facility] Last Admin: 08/04/24 21:36 Dose: 40 mg Documented By: CHINMAY Glipizide (Glipizide 5 Mg Tablet) 5 mg PO BIDWM [facility] Last Admin: 08/05/24 07:45 Dose: 5 mg Documented By: YASMIN Glucose (Glucose Gel 15 Gm Gel..Gram.) 15 gm PO Q15M PRN; Protocol PRN Reason: per Hypoglycemia Standing Ord. Hydrochlorothiazide (Hydrochlorothiazide 12.5 Mg Tablet) 12.5 mg PO DAILY [facility]; Protocol Last Admin: 08/05/24 07:45 Dose: 12.5 mg Documented By: YASMIN Insulin Human Lispro (Insulin Lispro 100 Unit/Ml 3 Ml Vial) 0 unit SUBCUT QIDACHS [facility]; Protocol Last Admin: 08/05/24 07:06 Dose: Not Given Documented By: YASMIN Non-Admin Reason: No Insulin Coverage Lisinopril (Lisinopril 10 Mg Tablet) 10 mg PO DAILY [facility]; Protocol Last Admin: 08/05/24 07:45 Dose: 10 mg Documented By: YASMIN Magnesium Hydroxide (Milk Of Magnesia 30 Ml Oral.Susp) 30 ml PO DAILY PRN PRN Reason: Constipation Melatonin (Melatonin 3 Mg Tablet) 6 mg PO BEDTIME PRN PRN Reason: Insomnia Morphine Sulfate (Morphine Sulfate 4 Mg/Ml Cartridge) 3 mg IVPUSH Q3H PRN; Protocol PRN Reason: Pain, Severe (Pain Scale 7-10) Naloxone HCl (Naloxone Hcl 0.4 Mg/Ml Vial) 0.04 mg IVPUSH Q5M PRN PRN Reason: Excessive sedation or RR < 8 Oxycodone HCl (Oxycodone Hcl Immed Release 5 Mg Tablet) 5 mg PO Q4H PRN PRN Reason: Pain, Moderate(Pain Scale 4-6) Polyethylene Glycol (Polyethylene Glycol 3350 17 Gm Powd.Pack) 17 gm PO DAILY PRN PRN Reason: Constipation Last Admin: 08/03/24 06:01 Dose: 17 gm Documented By: BIENVENIDO Raltegravir (Raltegravir Potassium 400 Mg Tablet) 400 mg PO BID [facility] Last Admin: 08/05/24 07:45 Dose: 400 mg Documented By: YASMIN Sodium Chloride (0.9 % Sodium Chloride Flush 3 Ml Syringe) 3 ml IVFLUSH QSHIFT [facility] Last Admin: 08/05/24 07:45 Dose: 3 ml Documented By: YASMIN Labs 08/03/24 05:55 08/05/24 05:48 Labs: Laboratory Results - last 24 hr 08/04/24 08/04/24 08/04/24 11:20 16:31 20:02 Hold Purple Top Estim Creat Clear Calc Estimated GFR POC Glucose 104 184 H 201 H 08/05/24 08/05/24 08/05/24 05:32 05:48 07:00 Hold Purple Top SEE NOTE Estim Creat Clear Calc 56.4 Estimated GFR > 60 POC Glucose 104 Microbiology Microbiology Results: Microbiology 08/03/24 Unknown Urine Culture - Preliminary Urine clean catch - Clean Catch Midstream No growth to date. Assessment and Plan (1) Acute osteomyelitis of toe of right foot: Status: Acute Plan 74-year-old male with a PMH significant for HIV and HTN?who presents to the ED for evaluation of worsening right toe wound/ 2nd toe osteomyelitis in the setting of new onset diabetes. Acute osteomyelitis of right second toe In the setting of undiagnosed/new onset diabetes X-ray of right foot suggestive of osteomyelitis seen by vascular - vascular supply not primary issue initially treated with IV vancomycin and cefepime s/p toe amputation 08/02. no need for correction abx as source of infection has been removed, for now continue Rocephin and doxycycline while inpatient General surgery following New onset type 2 diabetes with hyperglycemia A1c 9.2 patient prefers po meds>adjusted glipizide 5mg po bid ss, Diabetic diet, diabetic counseling Acute lactic acidosis. Resolved Initial lactic acid 2.6 with repeat 2.2 with hydration Not secondary to sepsis no need to trend further lactic acid . HTN uncontrolled on hctz, lisinopril adjusted 10 mg qd and amlodipine 2.5 mg qd. HIV Continue home meds outpatient follow up with [place] [facility] [place] Full Code DVT Prophylaxis: Lovenox PT rec - STR Quality Stroke Does the patient have a stroke diagnosis?: No VTE Prior VTE?: No VTE Risk Level:: Medical - moderate - high VTE Device Contraindication: Treatment Not Indicated VTE Drug Contraindication: N/A - Med Ordered
[2024-08-05 11:14] LABS: Glucose, Whole Blood 143 mg/dL (60-115)
[2024-08-05 16:16] LABS: Glucose, Whole Blood 153 mg/dL (60-115)
[2024-08-05] MEDS: Insulin Lispro 100 UNIT/ML 3 ML VIAL SUBCUT ×2 (16:47→21:49)
[2024-08-05 20:02] LABS: Glucose, Whole Blood 200 mg/dL (60-115)
[2024-08-05] MEDS: Docusate Sodium 100 MG CAPSULE PO (21:48)
[2024-08-05] MEDS: Enoxaparin Sodium 40 MG/0.4 ML SYRINGE SUBCUT (21:49)
--- NOTE | 2024-08-05 21:50 | PC.NURSE ---
This RN assumed care at 1900, AOx4, calm and cooperative, pt denies pain at this time, independent in the room, with steady gait. LS diminished throughout but clear, appropriately using incentive spirometer. Denies SOB/CP, RR even and non-labored, BSx4, +pedal pulses/CMS. Gauze & ROJAS wrap to R foot, CDI with some staining noted top of toes. No apparent distress noted at this time, will continue to reassess. VSS, Call clements within reach.
[2024-08-06] MEDS: Doxycycline Monohydrate 100 MG CAPSULE PO ×3 (00:27→23:46)
[2024-08-06 03:11] VITALS: BP 129/61; PULSE 79; RESP 18; TEMP 36.2; O2SAT 96
[2024-08-06 06:50] LABS: Estimated Glomerular Filt Rate 55
[2024-08-06 07:12] VITALS: BP 136/72; PULSE 76; RESP 12; TEMP 36.6; O2SAT 95
[2024-08-06 07:20] LABS: Glucose, Whole Blood 138 mg/dL (60-115)
[2024-08-06] MEDS: Raltegravir Potassium 400 MG TABLET PO ×2 (08:14→19:59)
[2024-08-06] MEDS: cefTRIAXone sodium 1 GM VIAL IVPUSH (08:14)
[2024-08-06] MEDS: glipiZIDE 5 MG TABLET PO ×2 (08:14→16:47)
[2024-08-06] MEDS: hydroCHLOROthiazide 12.5 MG TABLET PO (08:14)
[2024-08-06] MEDS: lisinopriL 10 MG TABLET PO (08:14)
[2024-08-06] MEDS: amLODIPine Besylate 2.5 MG TABLET PO (08:14)
[2024-08-06] MEDS: DARUNAVIR ETHANOLATE 600 MG PO ×2 (08:14→19:59)
[2024-08-06] MEDS: 0.9 % Sodium Chloride Flush 3 ML SYRINGE IVFLUSH ×3 (08:15→19:59)
--- NOTE | 2024-08-06 08:38 | P.PNIM_ITS ---
Subjective Subjective Date of Service: 08/06/24 Interval History: Follow up s/p right second toe amputation 2/2 osteomylitis Denies pain, slept well Ambulating using a rolling walker Review of Systems Review of Systems: Yes all other systems are reviewed and are negative Constitutional Denies any pain, fever or chills. Integumentary/Breasts Skin/Breast: Reports wounds (Denies pain to surgical site on the right toe.) Physical Exam 2 Vital Signs: Vital Signs: Last Vital Signs Temp 97.8 F 08/06/24 07:12 Pulse 76 08/06/24 07:12 Resp 12 08/06/24 07:12 BP 136/72 08/06/24 07:12 Pulse Ox 95 08/06/24 07:12 O2 Del Method Room Air 08/06/24 07:12 O2 Flow Rate 6 08/02/24 15:20 BMI result Body Mass Index 27.3 Skin: Wounds: amputation site (Dressing is intact) right 2nd toe drainage serosanguinous Objective Data Active Medications Acetaminophen (Acetaminophen 325 Mg Tablet) 650 mg PO Q6H PRN PRN Reason: Pain, Mild 1-3,fever,headache Amlodipine Besylate (Amlodipine Besylate 2.5 Mg Tablet) 2.5 mg PO DAILY [facility]; Protocol Last Admin: 08/06/24 08:14 Dose: 2.5 mg Documented By: MILDRED Calcium Carbonate (Calcium Carbonate 750 Mg Tab.Chew) 750 mg PO Q4H PRN PRN Reason: Heartburn Ceftriaxone Sodium (Ceftriaxone Sodium 1 Gm Vial) 1 gm IVPUSH Q24H [facility] Last Admin: 08/06/24 08:14 Dose: 1 gm Documented By: MILDRED Darunavir (Darunavir Ethanolate 600 Mg Tablet) 600 mg PO BID [facility] Last Admin: 08/06/24 08:14 Dose: 600 mg Documented By: MILDRED Dextrose (Dextrose 50 % 25 Gm/50 Ml Syringe) 25 gm IVPUSH Q15M PRN; Protocol PRN Reason: per Hypoglycemia Standing Ord. Docusate Sodium (Docusate Sodium 100 Mg Capsule) 100 mg PO BEDTIME [facility] Last Admin: 08/05/24 21:48 Dose: 100 mg Documented By: KATHRINE Doxycycline Monohydrate (Doxycycline Monohydrate 100 Mg Capsule) 100 mg PO Q12H [facility] Last Admin: 08/06/24 00:27 Dose: 100 mg Documented By: KATHRINE Enoxaparin Sodium (Enoxaparin Sodium 40 Mg/0.4 Ml Syringe) 40 mg SUBCUT Q24H [facility] Last Admin: 08/05/24 21:49 Dose: 40 mg Documented By: KATHRINE Glipizide (Glipizide 5 Mg Tablet) 5 mg PO BIDWM [facility] Last Admin: 08/06/24 08:14 Dose: 5 mg Documented By: MILDRED Glucose (Glucose Gel 15 Gm Gel..Gram.) 15 gm PO Q15M PRN; Protocol PRN Reason: per Hypoglycemia Standing Ord. Hydrochlorothiazide (Hydrochlorothiazide 12.5 Mg Tablet) 12.5 mg PO DAILY [facility]; Protocol Last Admin: 08/06/24 08:14 Dose: 12.5 mg Documented By: MILDRED Insulin Human Lispro (Insulin Lispro 100 Unit/Ml 3 Ml Vial) 0 unit SUBCUT QIDACHS [facility]; Protocol Last Admin: 08/06/24 07:28 Dose: Not Given Documented By: MILDRED Non-Admin Reason: No Insulin Coverage Lisinopril (Lisinopril 10 Mg Tablet) 10 mg PO DAILY [facility]; Protocol Last Admin: 08/06/24 08:14 Dose: 10 mg Documented By: MILDRED Magnesium Hydroxide (Milk Of Magnesia 30 Ml Oral.Susp) 30 ml PO DAILY PRN PRN Reason: Constipation Melatonin (Melatonin 3 Mg Tablet) 6 mg PO BEDTIME PRN PRN Reason: Insomnia Morphine Sulfate (Morphine Sulfate 4 Mg/Ml Cartridge) 3 mg IVPUSH Q3H PRN; Protocol PRN Reason: Pain, Severe (Pain Scale 7-10) Naloxone HCl (Naloxone Hcl 0.4 Mg/Ml Vial) 0.04 mg IVPUSH Q5M PRN PRN Reason: Excessive sedation or RR < 8 Oxycodone HCl (Oxycodone Hcl Immed Release 5 Mg Tablet) 5 mg PO Q4H PRN PRN Reason: Pain, Moderate(Pain Scale 4-6) Polyethylene Glycol (Polyethylene Glycol 3350 17 Gm Powd.Pack) 17 gm PO DAILY PRN PRN Reason: Constipation Last Admin: 08/03/24 06:01 Dose: 17 gm Documented By: BIENVENIDO Raltegravir (Raltegravir Potassium 400 Mg Tablet) 400 mg PO BID [facility] Last Admin: 08/06/24 08:14 Dose: 400 mg Documented By: MILDRED Sodium Chloride (0.9 % Sodium Chloride Flush 3 Ml Syringe) 3 ml IVFLUSH QSHIFT [facility] Last Admin: 08/06/24 08:15 Dose: 3 ml Documented By: MILDRED Labs 08/03/24 05:55 08/06/24 05:37 Labs: Laboratory Results - last 24 hr 08/05/24 08/05/24 08/05/24 11:10 16:11 19:27 Hold Purple Top Estim Creat Clear Calc Estimated GFR POC Glucose 143 H 153 H 200 H 08/06/24 08/06/24 08/06/24 05:37 06:29 07:15 Hold Purple Top SEE NOTE Estim Creat Clear Calc 51.0 Estimated GFR 55 POC Glucose 138 H Microbiology Microbiology Results: Microbiology 08/03/24 Unknown Urine Culture - Final Urine clean catch - Clean Catch Midstream No growth. Assessment and Plan (1) Acute osteomyelitis of toe of right foot: Status: Acute Plan 74-year-old male with a PMH significant for HIV and HTN?who presents to the ED for evaluation of worsening right toe wound/ 2nd toe osteomyelitis in the setting of new onset diabetes. Acute osteomyelitis of right second toe In the setting of undiagnosed/new onset diabetes S/P right 2nd toe amputation on 08/02. No need for termite inspector abx as source of infection has been removed, continue Rocephin and doxycycline while inpatient, switch to PO on discharge General surgery following Right second toe surgical wound S/p amputation Daily dressing changes per general surgery NS wash with xeroform and fluff gauze Dry dressings with thick flaps, foot with Kerlix roll and Dwight New onset type 2 diabetes with hyperglycemia A1c 9.2 Patient prefers po meds on glipizide 5mg po bid Insulin sliding scale, Diabetic diet, diabetic counseling Acute lactic acidosis. Resolved Initial lactic acid 2.6 with repeat 2.2 with hydration Not secondary to sepsis No need to trend further lactic acid . HTN uncontrolled On hctz, lisinopril adjusted 10 mg qd and amlodipine 2.5 mg qd. BP well controlled with current regimen HIV Continue home meds [place] [facility] [place] Full Code DVT Prophylaxis: Lovenox PT rec - STR Follow up with case management for placement Quality Stroke Does the patient have a stroke diagnosis?: No VTE Prior VTE?: No VTE Risk Level:: Medical - moderate - high VTE Device Contraindication: Treatment Not Indicated VTE Drug Contraindication: N/A - Med Ordered
[2024-08-06 11:19] LABS: Glucose, Whole Blood 174 mg/dL (60-115)
[2024-08-06] MEDS: Insulin Lispro 100 UNIT/ML 3 ML VIAL SUBCUT ×3 (11:42→21:08)
[2024-08-06 12:00] VITALS: BP 153/83; PULSE 86; RESP 16; TEMP 36.8; O2SAT 96
[2024-08-06 15:13] VITALS: BP 145/81; PULSE 88; RESP 16; TEMP 36.5; O2SAT 98
[2024-08-06 16:28] LABS: Glucose, Whole Blood 161 mg/dL (60-115)
[2024-08-06 19:26] VITALS: BP 111/61; PULSE 89; RESP 15; TEMP 36.9; O2SAT 97
[2024-08-06] MEDS: Docusate Sodium 100 MG CAPSULE PO (19:59)
[2024-08-06 20:37] LABS: Glucose, Whole Blood 205 mg/dL (60-115)
[2024-08-06] MEDS: Enoxaparin Sodium 40 MG/0.4 ML SYRINGE SUBCUT (21:08)
[2024-08-06 23:18] VITALS: BP 120/68; PULSE 88; RESP 18; TEMP 36.9; O2SAT 96
--- NOTE | 2024-08-07 00:25 | HO.SKINPHOTO ---
Location: R foot 2nd toe amputation Category: amputation New dressing applied, CDI patient tolerated well. Location: Category: Stage: Length: Width: Depth: cm Location: Category: Stage: Length: Width: Depth: cm Location: Category: Stage: Length: Width: Depth: cm Location: Category: Stage: Length: Width: Depth: cm Location: Category: Stage: Length: Width: Depth: cm
[2024-08-07 03:58] VITALS: BP 137/72; PULSE 72; RESP 18; TEMP 36.7; O2SAT 95
[2024-08-07 07:32] VITALS: BP 132/70; PULSE 80; RESP 16; TEMP 36.3; O2SAT 92
[2024-08-07 07:41] LABS: Glucose, Whole Blood 111 mg/dL (60-115)
[2024-08-07] MEDS: cefTRIAXone sodium 1 GM VIAL IVPUSH (08:13)
[2024-08-07] MEDS: hydroCHLOROthiazide 12.5 MG TABLET PO (08:13)
[2024-08-07] MEDS: Raltegravir Potassium 400 MG TABLET PO (08:13)
[2024-08-07] MEDS: amLODIPine Besylate 2.5 MG TABLET PO (08:13)
[2024-08-07] MEDS: lisinopriL 10 MG TABLET PO (08:13)
[2024-08-07] MEDS: DARUNAVIR ETHANOLATE 600 MG PO (08:13)
[2024-08-07] MEDS: 0.9 % Sodium Chloride Flush 3 ML SYRINGE IVFLUSH (08:13)
[2024-08-07] MEDS: glipiZIDE 5 MG TABLET PO (08:13)
--- NOTE | 2024-08-07 09:05 | P.PNIM_ITS ---
Subjective Subjective Date of Service: 08/07/24 Interval History: Follow up s/p right second toe amputation 2/2 osteomylitis Denies pain, slept well Ambulating using a rolling walker Review of Systems Review of Systems: Yes all other systems are reviewed and are negative Constitutional Denies any pain, fever or chills. Integumentary/Breasts Skin/Breast: Reports wounds (Denies pain to surgical site on the right toe.) Physical Exam 2 Vital Signs: Vital Signs: Last Vital Signs Temp 97.4 F 08/07/24 07:32 Pulse 80 08/07/24 07:32 Resp 16 08/07/24 07:32 BP 132/70 08/07/24 07:32 Pulse Ox 92 08/07/24 07:32 O2 Del Method Room Air 08/07/24 07:32 O2 Flow Rate 6 08/02/24 15:20 BMI result Body Mass Index 27.3 Appearing in no acute distress lung sounds are clear to auscultation heart regular rate rhythm, clear S1, S2 positive bowel sounds, abdomen is soft, nontender neuro patient is alert x3, no focal deficits Objective Data Active Medications Acetaminophen (Acetaminophen 325 Mg Tablet) 650 mg PO Q6H PRN PRN Reason: Pain, Mild 1-3,fever,headache Amlodipine Besylate (Amlodipine Besylate 2.5 Mg Tablet) 2.5 mg PO DAILY [facility]; Protocol Last Admin: 08/07/24 08:13 Dose: 2.5 mg Documented By: MILDRED Calcium Carbonate (Calcium Carbonate 750 Mg Tab.Chew) 750 mg PO Q4H PRN PRN Reason: Heartburn Ceftriaxone Sodium (Ceftriaxone Sodium 1 Gm Vial) 1 gm IVPUSH Q24H [facility] Last Admin: 08/07/24 08:13 Dose: 1 gm Documented By: MILDRED Darunavir (Darunavir Ethanolate 600 Mg Tablet) 600 mg PO BID [facility] Last Admin: 08/07/24 08:13 Dose: 600 mg Documented By: MILDRED Dextrose (Dextrose 50 % 25 Gm/50 Ml Syringe) 25 gm IVPUSH Q15M PRN; Protocol PRN Reason: per Hypoglycemia Standing Ord. Docusate Sodium (Docusate Sodium 100 Mg Capsule) 100 mg PO BEDTIME [facility] Last Admin: 08/06/24 19:59 Dose: 100 mg Documented By: KATHRINE Doxycycline Monohydrate (Doxycycline Monohydrate 100 Mg Capsule) 100 mg PO Q12H [facility] Last Admin: 08/06/24 23:46 Dose: 100 mg Documented By: KATHRINE Enoxaparin Sodium (Enoxaparin Sodium 40 Mg/0.4 Ml Syringe) 40 mg SUBCUT Q24H [facility] Last Admin: 08/06/24 21:08 Dose: 40 mg Documented By: KATHRINE Glipizide (Glipizide 5 Mg Tablet) 5 mg PO BIDWM [facility] Last Admin: 08/07/24 08:13 Dose: 5 mg Documented By: MILDRED Glucose (Glucose Gel 15 Gm Gel..Gram.) 15 gm PO Q15M PRN; Protocol PRN Reason: per Hypoglycemia Standing Ord. Hydrochlorothiazide (Hydrochlorothiazide 12.5 Mg Tablet) 12.5 mg PO DAILY [facility]; Protocol Last Admin: 08/07/24 08:13 Dose: 12.5 mg Documented By: MILDRED Insulin Human Lispro (Insulin Lispro 100 Unit/Ml 3 Ml Vial) 0 unit SUBCUT QIDACHS [facility]; Protocol Last Admin: 08/07/24 07:39 Dose: Not Given Documented By: MILDRED Non-Admin Reason: No Insulin Coverage Lisinopril (Lisinopril 10 Mg Tablet) 10 mg PO DAILY [facility]; Protocol Last Admin: 08/07/24 08:13 Dose: 10 mg Documented By: MILDRED Magnesium Hydroxide (Milk Of Magnesia 30 Ml Oral.Susp) 30 ml PO DAILY PRN PRN Reason: Constipation Melatonin (Melatonin 3 Mg Tablet) 6 mg PO BEDTIME PRN PRN Reason: Insomnia Morphine Sulfate (Morphine Sulfate 4 Mg/Ml Cartridge) 3 mg IVPUSH Q3H PRN; Protocol PRN Reason: Pain, Severe (Pain Scale 7-10) Naloxone HCl (Naloxone Hcl 0.4 Mg/Ml Vial) 0.04 mg IVPUSH Q5M PRN PRN Reason: Excessive sedation or RR < 8 Oxycodone HCl (Oxycodone Hcl Immed Release 5 Mg Tablet) 5 mg PO Q4H PRN PRN Reason: Pain, Moderate(Pain Scale 4-6) Polyethylene Glycol (Polyethylene Glycol 3350 17 Gm Powd.Pack) 17 gm PO DAILY PRN PRN Reason: Constipation Last Admin: 08/03/24 06:01 Dose: 17 gm Documented By: BIENVENIDO Raltegravir (Raltegravir Potassium 400 Mg Tablet) 400 mg PO BID [facility] Last Admin: 08/07/24 08:13 Dose: 400 mg Documented By: MILDRED Sodium Chloride (0.9 % Sodium Chloride Flush 3 Ml Syringe) 3 ml IVFLUSH QSHIFT [facility] Last Admin: 08/07/24 08:13 Dose: 3 ml Documented By: MILDRED Labs 08/03/24 05:55 08/06/24 05:37 Labs: Laboratory Results - last 24 hr 08/06/24 08/06/24 08/06/24 11:15 16:18 20:30 POC Glucose 174 H 161 H 205 H 08/07/24 07:36 POC Glucose 111 Assessment and Plan (1) Acute osteomyelitis of toe of right foot: Status: Acute Plan 74-year-old male with a PMH significant for HIV and HTN?who presents to the ED for evaluation of worsening right toe wound/ 2nd toe osteomyelitis in the setting of new onset diabetes. Acute osteomyelitis of right second toe In the setting of undiagnosed/new onset diabetes S/P right 2nd toe amputation on 08/02. No need for terminal operations manager abx as source of infection has been removed, continue Rocephin and doxycycline while inpatient General surgery following Right second toe surgical wound S/p amputation Daily dressing changes per general surgery NS wash with xeroform and fluff gauze Dry dressings with thick flaps, foot with Kerlix roll and Dwight New onset type 2 diabetes with hyperglycemia A1c 9.2 Patient prefers po meds on glipizide 5mg po bid Insulin sliding scale, Diabetic diet, diabetic counseling Acute lactic acidosis. Resolved Initial lactic acid 2.6 with repeat 2.2 with hydration Not secondary to sepsis No need to trend further lactic acid . HTN uncontrolled On hctz, lisinopril adjusted 10 mg qd and amlodipine 2.5 mg qd. BP well controlled with current regimen HIV Continue home meds Outpatient follow up with ID at [facility] [place] Full Code DVT Prophylaxis: Lovenox PT rec - STR Follow up with case management for placement Quality Stroke Does the patient have a stroke diagnosis?: No VTE Prior VTE?: No VTE Risk Level:: Medical - moderate - high VTE Device Contraindication: Treatment Not Indicated VTE Drug Contraindication: N/A - Med Ordered
--- NOTE | 2024-08-07 09:39 | P.PNGS_ITS ---
Subjective Subjective Date of Service: 08/07/24 <Srinath Chaney PA-C - Last Filed: 08/07/24 09:48> 08/07/24 <Anish Ellis MD - Last Filed: 08/07/24 13:52> Patient reports: no new complaints and afebrile <POPPY Bradshaw Last Filed: 08/07/24 09:48> Interval history: Patient reports hes doing well today, denies pain. He is tolerating diet. Ambulating using boot and rolling walker. Passing bowel movements. Denies fever/chills <Srinath Chaney PA-C - Last Filed: 08/07/24 09:48> Physical Exam 2 Vital Signs: Vital Signs: Last Vital Signs Temp 97.4 F 08/07/24 07:32 Pulse 80 08/07/24 07:32 Resp 16 08/07/24 07:32 BP 132/70 08/07/24 07:32 Pulse Ox 92 08/07/24 07:32 O2 Del Method Room Air 08/07/24 07:32 O2 Flow Rate 6 08/02/24 15:20 BMI result Body Mass Index 27.3 <Srinath Chaney PA-C - Last Filed: 08/07/24 09:48> Const: General: comfortable and no acute distress <POPPY Bradshaw Last Filed: 08/07/24 09:48> Orientation/consciousness: patient oriented x3 <POPPY Bradshaw Last Filed: 08/07/24 09:48> Resp: Effort & Inspection: normal respiratory effort and able to speak in complete sentences <POPPY Bradshaw Last Filed: 08/07/24 09:48> Neuro: General: patient oriented x3 <POPPY Bradshaw Last Filed: 08/07/24 09:48> Extrem: Other: right second toe amp. Dressing in place, minimal saturation. Suture line intact No surrounding erythema/edema <POPPY Bradshaw Last Filed: 08/07/24 09:48> Objective Data Active Medications Acetaminophen (Acetaminophen 325 Mg Tablet) 650 mg PO Q6H PRN PRN Reason: Pain, Mild 1-3,fever,headache Amlodipine Besylate (Amlodipine Besylate 2.5 Mg Tablet) 2.5 mg PO DAILY ORACIO; Protocol Last Admin: 08/07/24 08:13 Dose: 2.5 mg Documented By: MILDRED Calcium Carbonate (Calcium Carbonate 750 Mg Tab.Chew) 750 mg PO Q4H PRN PRN Reason: Heartburn Ceftriaxone Sodium (Ceftriaxone Sodium 1 Gm Vial) 1 gm IVPUSH Q24H [facility] Last Admin: 08/07/24 08:13 Dose: 1 gm Documented By: MILDRED Darunavir (Darunavir Ethanolate 600 Mg Tablet) 600 mg PO BID [facility] Last Admin: 08/07/24 08:13 Dose: 600 mg Documented By: MILDRED Dextrose (Dextrose 50 % 25 Gm/50 Ml Syringe) 25 gm IVPUSH Q15M PRN; Protocol PRN Reason: per Hypoglycemia Standing Ord. Docusate Sodium (Docusate Sodium 100 Mg Capsule) 100 mg PO BEDTIME [facility] Last Admin: 08/06/24 19:59 Dose: 100 mg Documented By: KATHRINE Doxycycline Monohydrate (Doxycycline Monohydrate 100 Mg Capsule) 100 mg PO Q12H [facility] Last Admin: 08/06/24 23:46 Dose: 100 mg Documented By: KATHRINE Enoxaparin Sodium (Enoxaparin Sodium 40 Mg/0.4 Ml Syringe) 40 mg SUBCUT Q24H [facility] Last Admin: 08/06/24 21:08 Dose: 40 mg Documented By: KATHRINE Glipizide (Glipizide 5 Mg Tablet) 5 mg PO BIDWM [facility] Last Admin: 08/07/24 08:13 Dose: 5 mg Documented By: MILDRED Glucose (Glucose Gel 15 Gm Gel..Gram.) 15 gm PO Q15M PRN; Protocol PRN Reason: per Hypoglycemia Standing Ord. Hydrochlorothiazide (Hydrochlorothiazide 12.5 Mg Tablet) 12.5 mg PO DAILY [facility]; Protocol Last Admin: 08/07/24 08:13 Dose: 12.5 mg Documented By: MILDRED Insulin Human Lispro (Insulin Lispro 100 Unit/Ml 3 Ml Vial) 0 unit SUBCUT QIDACHS [facility]; Protocol Last Admin: 08/07/24 07:39 Dose: Not Given Documented By: MILDRED Non-Admin Reason: No Insulin Coverage Lisinopril (Lisinopril 10 Mg Tablet) 10 mg PO DAILY [facility]; Protocol Last Admin: 08/07/24 08:13 Dose: 10 mg Documented By: MILDRED Magnesium Hydroxide (Milk Of Magnesia 30 Ml Oral.Susp) 30 ml PO DAILY PRN PRN Reason: Constipation Melatonin (Melatonin 3 Mg Tablet) 6 mg PO BEDTIME PRN PRN Reason: Insomnia Morphine Sulfate (Morphine Sulfate 4 Mg/Ml Cartridge) 3 mg IVPUSH Q3H PRN; Protocol PRN Reason: Pain, Severe (Pain Scale 7-10) Naloxone HCl (Naloxone Hcl 0.4 Mg/Ml Vial) 0.04 mg IVPUSH Q5M PRN PRN Reason: Excessive sedation or RR < 8 Oxycodone HCl (Oxycodone Hcl Immed Release 5 Mg Tablet) 5 mg PO Q4H PRN PRN Reason: Pain, Moderate(Pain Scale 4-6) Polyethylene Glycol (Polyethylene Glycol 3350 17 Gm Powd.Pack) 17 gm PO DAILY PRN PRN Reason: Constipation Last Admin: 08/03/24 06:01 Dose: 17 gm Documented By: BIENVENIDO Raltegravir (Raltegravir Potassium 400 Mg Tablet) 400 mg PO BID [facility] Last Admin: 08/07/24 08:13 Dose: 400 mg Documented By: MILDRED Sodium Chloride (0.9 % Sodium Chloride Flush 3 Ml Syringe) 3 ml IVFLUSH QSHIFT [facility] Last Admin: 08/07/24 08:13 Dose: 3 ml Documented By: MILDRED <Srinath Chaney PA-C - Last Filed: 08/07/24 09:48> Labs CBC & Chem 7: 08/03/24 05:55 08/06/24 05:37 <Srinath Chaney PA-C - Last Filed: 08/07/24 09:48> Labs: Laboratory Results - last 24 hr 08/06/24 08/06/24 08/06/24 11:15 16:18 20:30 POC Glucose 174 H 161 H 205 H 08/07/24 07:36 POC Glucose 111 <Srinath Chaney PA-C - Last Filed: 08/07/24 09:48> Procedures Date of Service Date of Service: 08/07/24 <Srinath Chaney PA-C - Last Filed: 08/07/24 09:48> 08/07/24 <Anish Ellis MD - Last Filed: 08/07/24 13:52> Progress Note: A&P Assessment and plan (1) Status post amputation of toe: Status: Acute <Srinath Chaney PA-C - Last Filed: 08/07/24 09:48> Assessment and Plan: Doing well Pain management I reinforced discharge instructions with him I will see him in the office for removal sutures Seen and examined independently <Anihs Ellis MD - Last Filed: 08/07/24 13:52> Assessment and Plan: 74 year old male s/p right 2nd toe amputation. Patient is doing well. No changes over the weekend. Minimal pain. He is ambulating with boot and walker. Tolerating diet, passing BM. Remains on Abx per hospitalist team Daily dressing changes, xeroform, gauze, kerlix, marian maintain optimal glucose control Pain regimen as needed. Abx per hospitalist team. Spirometry ambulation as tolerated with non toe weight bearing boot <Srinath Chaney PA-C - Last Filed: 08/07/24 09:48> Time Spent With Patient Time: Total time managing care of this patient today ____ minutes. <Srinath Chaney PA-C - Last Filed: 08/07/24 09:48> Quality Stroke Does the patient have a stroke diagnosis?: No <Srinath Chaney PA-C - Last Filed: 08/07/24 09:48> VTE Prior VTE?: No <Srinath Chaney PA-C - Last Filed: 08/07/24 09:48> VTE Risk Level:: Medical - moderate - high <Srinath Chaney PA-C - Last Filed: 08/07/24 09:48> VTE Device Contraindication: Treatment Not Indicated <Srinath Chaney PA-C - Last Filed: 08/07/24 09:48> VTE Drug Contraindication: N/A - Med Ordered <Srinath Chaney PA-C - Last Filed: 08/07/24 09:48>
[2024-08-07 10:20] VITALS: BP 132/70; PULSE 80; O2SAT 92
[2024-08-07 11:41] LABS: Glucose, Whole Blood 245 mg/dL (60-115)
[2024-08-07] MEDS: Doxycycline Monohydrate 100 MG CAPSULE PO (11:42)
[2024-08-07] MEDS: Insulin Lispro 100 UNIT/ML 3 ML VIAL SUBCUT (11:42)
--- NOTE | 2024-08-07 11:42 | PM.DS ---
DS: Providers Provider Date of Service: 08/07/24 Date of admission: 07/27/24 16:29 Date of discharge: 08/07/24 Primary care physician: Unknown Physician Consults: 07/27/24 16:30 Consult to Wound Care Routine Reason for consultation: foot infection Has provider been notified: No 07/27/24 16:31 Consult to General Surgery Routine Consulting [place] [facility] Reason for consultation: foot wound /cellulitis 07/29/24 09:26 Consult to Infectious Diseases Routine Consulting Provider: [facility] Reason for consultation: HIV/ dm/ foot Infection Has provider been notified: No 07/30/24 07:19 Consult to Vascular Surgery Routine Consulting Provider: Jose Shaw Reason for consultation: foot osteomyelitis /tibial artery stenosis Has provider been notified: No 07/31/24 21:45 Consult to Wound Care Routine Reason for consultation: Dm foot ulcer/+osteo DS: Diagnosis Discharge Diagnosis (1) Status post amputation of toe: Status: Acute DS: Summary Hospital Course Hospital Course: 74-year-old male with a PMH significant for HIV and HTN?who presents to the ED for evaluation of worsening right toe wound. Pt is overall a rather poor and vague historian. Will place a few days ago noticed that the nail on the 2nd digit of his right foot fell off. Pt states he sleeps in his socks and does not often look at his foot. Today pt went to take a shower and noticed the wound in his right foot had worsened significantly, was now swollen, malodorous, and bleeding. Pt denies any pain or feeling in his lower extremities. Denies hx of diabetes. Pt reports he is compliant with his HIV medications. However, pt states he has not seen a PCP in at least 3 or more years. Denies fever, chills. No nausea, vomiting, abdominal pain. Denies chest pain/pressure, palpitations. No SOB or difficulty breathing. In the ED pt was tachycardic up to 107 and hypertensive as high as 187/115. Labs were significant for ESR 54, random glucose 351, A1c 9.1, initial lactic acid 2.6 with repeat 2.2, and CRP 1.41. No leukocytosis. Stable H&H. No significant electrolyte abnormalities. Creatinine WNL at 1.15. X-ray of right toe showed diffuse soft tissue swelling with focal demineralization of right 2nd toe, suspicious for osteomyelitis. Pt was treated in the ED with IVF, vancomycin, and cefepime. Pt is admitted to the hospital for treatment and further evaluation of right 2nd toe osteomyelitis in the setting of new onset diabetes. Acute osteomyelitis of right second toe. In the setting of undiagnosed/new onset diabetes. Right 2nd toe amputation on 08/02. No need for ice carver abx as source of infection has been removed, Treated with Rocephin and doxycycline while inpatient, will complete 4 more days of doxycyline o/p. Right second toe surgical wound. Amputation 08/02/24. Daily dressing changes per general surgery with NS wash with xeroform and fluff gauze. Dry dressings with thick flaps, foot with Kerlix roll and Dwight. Ambulate with boot. Patient to schedule appointment with general surgery. Unfortunately patient has not seen his PCP in 7 years and he is unable to VNA services at this time. If he has difficulties with changing dressings he could schedule an appointment with the [facility]. New onset type 2 diabetes with hyperglycemia. A1c 9.2. treated with sliding scale while inpatient. home with glipizide 5mg po bid Acute lactic acidosis. Resolved. Initial lactic acid 2.6 with repeat 2.2 with hydration. Not secondary to sepsis HTN uncontrolled. On hctz, lisinopril adjusted 10 mg qd and amlodipine 2.5 mg qd. HIV. Continue home meds. Outpatient [place] [facility] [place] Attestation Discharge Coordination Time (in mins): 45 Quality: Safe Use of Opioids Does Pt have an Active Cancer Diagnosis on the Problem List?: No Quality: Stroke Does the patient have a stroke diagnosis?: No Physical Exam Vital Signs: Vital Signs: Last Vital Signs Temp 97.4 F 08/07/24 07:32 Pulse 80 08/07/24 10:20 Resp 16 08/07/24 07:32 BP 132/70 08/07/24 10:20 Pulse Ox 92 08/07/24 10:20 O2 Del Method Room Air 08/07/24 07:32 O2 Flow Rate 6 08/02/24 15:20 BMI result Body Mass Index 27.3 Appearing in no acute distress head is normocephalic atraumatic eyes pupils are PERRLA sclera is anicteric mouth throat mucous membranes are intact and moist neck is supple no lymphadenopathy, no JVD noted lung sounds are clear to auscultation heart regular rate rhythm, clear S1, S2 positive bowel sounds, abdomen is soft, nontender neuro patient is alert x3, no focal deficits Right foot dressing DS: Data Data Completed and Pending Pending studies at discharge: Pending at discharge 08/02/24 14:32 Surgical [PTH] Routine Labs on day of discharge: Laboratory Results - last 24 hr 08/06/24 08/06/24 08/07/24 16:18 20:30 07:36 POC Glucose 161 H 205 H 111 08/07/24 11:36 POC Glucose 245 H Discharge Plan Discharge Anticipated Discharge Date/Time: 08/07/24 11:29 Patient Disposition: Home, Self-Care Discharge Diagnosis: Acute osteomyelitis of right 2nd toe status post amputation Referrals: Anish Ellis MD [Physician] - 1 Week Discharge Medications: New amlodipine 2.5 mg Tablet 2.5 mg PO DAILY Qty: 30 0RF Protocol: Hold for SBP< HOLD for SBP < : 90 doxycycline monohydrate 100 mg Capsule 100 mg PO Q12H Qty: 8 0RF glipizide 5 mg Tablet 5 mg PO BIDWM Qty: 60 0RF oxycodone 5 mg Tablet 5 mg PO Q4H PRN (Reason: Pain, Moderate(Pain Scale 4-6)) Qty: 20 0RF Rx Instructions: Partial Fill upon patient request. Continued lisinopril 10 mg tablet 10 mg PO DAILY hydrochlorothiazide 12.5 mg tablet 12.5 mg PO DAILY Isentress 400 mg tablet 400 mg PO BID darunavir 600 mg tablet 600 mg PO BID etravirine 200 mg tablet 200 mg PO BID Discharge Orders: Discharge Order (Routine); Ordered 08/07/24 Ordered By: Luba Nix Diet: Advance to usual diet Activity on Discharge: As tolerated Stand Alone Forms: Patient Portal Discharge page Print Language: [place] Care Plan Goals: Daily dressing changes, xeroform, gauze, kerlix, dwight ambulation as tolerated with non toe weight bearing boot Schedule an appointment with General surgery Health Concerns: Acute osteomyelitis of right 2nd toe status post amputation Plan of Treatment: Follow up with primary care provider as needed Take all medications as prescribed Assessment: See discharge summary
[2024-08-07 11:51] VITALS: BP 154/74; PULSE 99; RESP 16; TEMP 36.6; O2SAT 97
--- NOTE | 2024-08-07 11:53 | MHC.CM.PN ---
DP: PT HAS BEEN MEDICALLY CLEARED FOR DC HOME, NO SERVICES. MD WILL NOT SIGN VNA ORDERS PT HAS NOT SEEN HER IN 7 YEARS. PT SENT WITH DRESSING SUPPLIES AND ENCOURAGED TO MAKE AN MD APPT TO RE-ESTABLISH [facility]. PT REQUESTS BLS TRANSPORT HOME. BLS BOOKED FOR 1 PM VIA [facility]. RN/WASHING AND SCREENING PLANT SUPERVISOR AWARE. FINAL IMM DELIVERED.
[2024-08-07 13:58] VITALS: BP 156/75; PULSE 98; RESP 16; TEMP 36.2; O2SAT 99
--- NOTE | 2024-08-14 07:33 | PC.NURSE ---
LATE ENTRY: Removed 5mg oxycodone at 1401 on 08/06/24 and administered to pt who reported pain 09/20 to amputation site. Medication was scanned in but computer and scan never saved.
== END 2024-08-07 14:16 | disposition home or self-care (01) | DRG 617 ==
LOC: HO.ED 16:32 → HO.EDOVER 16:50 → HO.IMC 22:26 → HO.S3 07-28 21:46
PROVIDERS: Nurse Practitioner Family; Physician Assistant Medical; Student in an Organized Health Care Education/Training Program; Surgery; Admitting Provider Internal Medicine; Emergency Provider Emergency Medicine Emergency Medical Services; Visit Provider Nurse Practitioner Acute Care
PROC: 0Y6R0Z3 Detachment at Right 2nd Toe, Low, Open Approach (ICD-10-PCS; principal; 2024-08-02 14:00)
DX: E11.69 Type 2 diabetes mellitus with other specified complication (principal); E87.21 Acute metabolic acidosis; M86.171 Other acute osteomyelitis, right ankle and foot; I10 Essential (primary) hypertension; Z21 Asymptomatic human immunodeficiency virus [HIV] infection status; E11.621 Type 2 diabetes mellitus with foot ulcer; L97.519 Non-pressure chronic ulcer of other part of right foot with unspecified severity; T87.81 Dehiscence of amputation stump; E11.65 Type 2 diabetes mellitus with hyperglycemia; Z91.199 Patient's noncompliance with other medical treatment and regimen due to unspecified reason; Z79.899 Other long term (current) drug therapy
CPT/HCPCS: 36415; 73660; 80048; 80053; 80202; 81001; 82565; 82947; 83036; 83605; 85025; 85027; 85652; 86140; 86359; 86360; 87040; 87086; 88305; 88311; 93926; 97116; 97162; 99285; J0131; J0692; J0696; J1650; J2003; J2371; J2704; J2795; J3010; J3370; J3371; J7120; P9047

== ENCOUNTER → 2024-07-27 15:35 | Outpatient (BNV) | payer MEDICARE, SELFPAY | PROVIDERS: Admitting Provider Internal Medicine; Emergency Provider Emergency Medicine Emergency Medical Services; Visit Provider Radiology Diagnostic Radiology | DX: M79.89 Other specified soft tissue disorders (principal) | CPT/HCPCS: 73660 ==

== ENCOUNTER 2024-07-27 16:29 | Outpatient (BNV) | payer MEDICARE, SELFPAY | END 2024-07-29 13:26 | PROVIDERS: Admitting Provider Internal Medicine; Emergency Provider Emergency Medicine Emergency Medical Services; Visit Provider Radiology Diagnostic Radiology | DX: I70.201 Unspecified atherosclerosis of native arteries of extremities, right leg (principal) | CPT/HCPCS: 93926 ==

== ENCOUNTER → 2024-07-27 16:29 | Outpatient (BNV) | payer MEDICARE, SELFPAY | PROVIDERS: Admitting Provider Internal Medicine; Emergency Provider Emergency Medicine Emergency Medical Services; Visit Provider Physician Assistant Surgical | DX: M86.171 Other acute osteomyelitis, right ankle and foot (principal) | CPT/HCPCS: 99222; 99232 ==

== ENCOUNTER → 2024-07-27 16:29 | Outpatient (BNV) | payer MEDICARE, SELFPAY | PROVIDERS: Admitting Provider Internal Medicine; Emergency Provider Emergency Medicine Emergency Medical Services; Visit Provider Internal Medicine | DX: M86.171 Other acute osteomyelitis, right ankle and foot (principal); Z21 Asymptomatic human immunodeficiency virus [HIV] infection status; Z79.899 Other long term (current) drug therapy | CPT/HCPCS: 99232 ==

== ENCOUNTER → 2024-07-27 16:29 | Outpatient (BNV) | payer MEDICARE, SELFPAY | PROVIDERS: Admitting Provider Internal Medicine; Emergency Provider Emergency Medicine Emergency Medical Services; Visit Provider Surgery | DX: M86.171 Other acute osteomyelitis, right ankle and foot (principal) | CPT/HCPCS: 97597; 99222; 99232 ==

== ENCOUNTER → 2024-07-27 16:29 | Outpatient (BNV) | payer MEDICARE, SELFPAY | PROVIDERS: Admitting Provider Internal Medicine; Emergency Provider Emergency Medicine Emergency Medical Services; Visit Provider Student in an Organized Health Care Education/Training Program | DX: Z89.429 Acquired absence of other toe(s), unspecified side (principal) | CPT/HCPCS: 99223; 99232; 99239 ==